=== PATIENT | female | born 1960 | race Caucasian/White ===

== ENCOUNTER 2016-09-06 14:50 | Inpatient (IN) | payer MEDICARE, OTHER ==
[~2016-09-06] VITALS: Ht 157.5 cm; Wt 45.0 kg
[2016-09-06] VITALS (25 sets, daily range): BP systolic 82–209; BP diastolic 40–113; PULSE 75–110; RESP 15–27; TEMP 98.2–100.4; O2SAT 90–100
[~2016-09-06 14:50] MED LIST: ASPI1TAB69 PO; BUSP15TA PO; DILA100C PO; DONE10TA7 PO; LACO50 PO; LORA-392 PO; PANT40TA3 PO; SIMV5TAB3 PO; ZYPR2.5T2 PO
[2016-09-06] MEDS ORDERED: LORazepam 2 MG/ML VIAL ONE (15:01)
[2016-09-06] MEDS ORDERED: LORazepam 2 MG/ML VIAL IVS ONE (15:15)
[2016-09-06] MEDS ORDERED: SODIUM CHLORIDE 0.9% FLUSH 5 ML FLUSH IVF PRN ×3 (15:15→19:00)
[2016-09-06] MEDS ORDERED: ETOMIDATE 20 MG/10 ML VIAL ONE (15:19)
[2016-09-06] MEDS ORDERED: ROCURONIUM INJ 50 MG/5 ML VIAL ONE (15:20)
[2016-09-06] MEDS ORDERED: PROPOFOL 1000 MG/100 ML INJ 100 ML ONE (15:22)
[2016-09-06] MEDS ORDERED: SODIUM CHLOR 0.9% 1000 ML INJ 1,000 ML IV ONE ×2 (15:27→23:15)
[2016-09-06] MEDS ORDERED: SUCCINYLCHOLINE CHLORIDE 200 MG/10 ML VIAL IV PUSH ONE (15:30)
[2016-09-06] MEDS ORDERED: LORazepam 2 MG/ML VIAL IV PUSH ONE ×4 (15:30)
[2016-09-06] MEDS ORDERED: FOSPHENYTOIN INJ 1,000 MGPE in SODIUM CHLORIDE 0.9% INJ 50 ML IV ONE ×4 (15:30)
[2016-09-06] MEDS ORDERED: ETOMIDATE 20 MG/10 ML VIAL IV PUSH ONE (15:30)
[2016-09-06 15:41] LABS: BASOPHIL % 0.3 % (0.0-2.0); EOSINOPHIL % 0.3 % (0.0-4.0); HEMATOCRIT 34.2 % (35.0-46.0); HEMO FLAGS DIFF FINAL; LYMPH % 10.4 % (9.0-44.0); MEAN CELL VOLUME 87.2 FL (80.0-100.0); MEAN CORPUSCULAR HEMOGLOBIN 28.5 PG (27.0-34.0); MEAN CORPUSCULAR HGB CONC 32.7 % (32.0-36.0); MONO % 8.1 % (0.0-8.0); NEUT % 80.9 % (16.0-70.0); PLATELET COUNT 470 TH/MM3 (150-450); RED BLOOD COUNT 3.92 MIL/MM3 (4.00-5.30); RED CELL DISTRIBUTION WIDTH 15.7 % (11.6-17.2); WHITE BLOOD COUNT 9.9 TH/MM3 (4.0-11.0)
[2016-09-06] MEDS ORDERED: HYDROmorphone HCL PF 1 MG/ML VIAL IV PUSH ONE (15:45)
--- NOTE | 2016-09-06 15:45 | PD ---
HPI Chief Complaint: Seizure Time Seen by Provider: 15:03 Travel History International Travel<30 days: No Contact w/Intl Traveler<30days: No Traveled to known affect area: No History of Present Illness HPI This is a 56-year-old female who has a history of dementia and reported prior stroke who presents to the emergency department with reported seizures witnessed by her longterm and by EMS. Patient reportedly had 4 episodes of repetitive movements that lasted for about a minute and then subsided. Patient has a history of dementia and is unable to provide any history. [facility] gave the patient 2 mg of IM Ativan but she continued to have some repetitive movements and gaze deviation to the left. PFSH Past Medical History Arthritis: No Asthma: No Autoimmune Disease: No Blood Disorders: No Anxiety: Yes Depression: Yes Heart Rhythm Problems: No Cancer: No Cardiovascular Problems: No High Cholesterol: No Chemotherapy: No Chest Pain: No Congestive Heart Failure: No COPD: No Cerebrovascular Accident: No Dementia: Yes (ALCOHOL INDUCED ) Diabetes: No Diminished Hearing: No Endocrine: No GERD: No Glaucoma: No Genitourinary: No Headaches: No Hepatitis: No Hiatal Hernia: No Hypertension: No Immune Disorder: No Implanted Vascular Access Dvce: Yes (PORT ) Kidney Stones: No Musculoskeletal: No Neurologic: Yes Psychiatric: Yes (PSYCHOSIS) Reproductive: No Respiratory: No Migraines: No Myocardial Infarction: No Radiation Therapy: No Renal Failure: No Schizophrenia: Yes Seizures: Yes Sickle Cell Disease: No Sleep Apnea: No Thyroid Disease: No Ulcer: No Menopausal: Yes Past Surgical History AICD: No Appendectomy: Yes Arteriovenous Shunt: No Cardiac Surgery: No Cholecystectomy: No Ear Surgery: No Endocrine Surgery: No Eye Surgery: No Genitourinary Surgery: No Gynecologic Surgery: No Insulin Pump: No Joint Replacement: No Pacemaker: No Thoracic Surgery: No Tonsillectomy: Yes Social History Alcohol Use: No (UNABLE TO ASSESS) Tobacco Use: Yes (PACK A DAY ) Substance Use: No Allergies-Medications (Allergen,Severity, Reaction): Coded Allergies: No Known Allergies (Verified , 09/06/16) Reported Meds & Prescriptions Reported Meds & Active Scripts Active Ativan (Lorazepam) 0.5 Mg Tab 0.5 Mg PO Q8H PRN Dilantin (Phenytoin Extended) 100 Mg Cap 100 Mg PO TID Reported Ducodyl DR (Bisacodyl) 5 Mg Tabdr 5 Mg PO DAILY PRN Olanzapine 5 Mg Tab 5 Mg PO BID Naproxen 500 Mg Tab 500 Mg PO BID Trazodone (Trazodone HCl) 50 Mg Tab 50 Mg PO HS Rocephin Inj (Ceftriaxone Sodium) 1 Gm Inj 1 Gm IM ONCE Nuedexta 20-10 mg (Dextromethorphan HBr-Quinidine) 1 Cap Cap 1 Cap PO BID Multiple Vitamin 1 Tab 1 Tab PO DAILY Buspirone (Buspirone HCl) 15 Mg Tab 15 Mg PO TID Pantoprazole (Pantoprazole Sodium) 40 Mg Tab 40 Mg PO BID Vimpat (Lacosamide) 50 Mg Tab 50 Mg PO BID Simvastatin 5 Mg Tab 5 Mg PO HS Donepezil 10 Mg Tab 10 Mg PO HS Aspirin 81 Mg Tabdr 81 Mg PO DAILY Review of Systems ROS Limitations: Intubated, Altered Mental Status, Poor Historian Physical Exam Narrative GENERAL: Frail elderly female in no acute distress SKIN: Warm and dry. HEAD: Atraumatic. Normocephalic. EYES: Pupils equal and round. No injection or drainage. ENT: Moist mucous membranes NECK: Trachea midline. CARDIOVASCULAR: Regular rate and rhythm. No murmur appreciated. RESPIRATORY: Clear to auscultation. Breath sounds equal bilaterally. 1+ bilateral lower extremity edema. GASTROINTESTINAL: Abdomen soft, non-tender, nondistended. MUSCULOSKELETAL: No obvious deformities. NEUROLOGICAL: Gaze deviation to the left, repetitive movements of the left upper extremity and left leg with repetitive blinking. Data Data Last Documented VS Vital Signs Date Time Temp Pulse Resp B/P Pulse Ox O2 Delivery O2 Flow Rate FiO2 09/06/16 17:00 107 18 127/82 100 Ventilator 100 09/06/16 15:15 2 09/06/16 14:50 98.2 Orders Lorazepam Inj (Ativan Inj) (09/06/16 15:01) Complete Blood Count With Diff (09/06/16 15:03) Electrocardiogram (09/06/16 ) Ct Brain W/O Iv Contrast(Rout) (09/06/16 ) Blood Glucose (09/06/16 15:03) Ecg Monitoring (09/06/16 15:03) Iv Access Insert/Monitor (09/06/16 15:03) Oximetry (09/06/16 15:03) Comprehensive Metabolic Panel (09/06/16 15:03) Sodium Chloride 0.9% Flush (Ns Flush) (09/06/16 15:15) Lorazepam Inj (Ativan Inj) (09/06/16 15:15) Ua Includes Microscopic (09/06/16 15:03) Fosphenytoin Inj (Cerebyx Inj) (09/06/16 15:30) Lactic Acid (09/06/16 15:04) Etomidate Inj (Amidate Inj) (09/06/16 15:19) Rocuronium Inj (Zemuron Inj) (09/06/16 15:20) Propofol 1000 Mg/100 Ml Inj (Diprivan 10 (09/06/16 15:22) Lorazepam Inj (Ativan Inj) (09/06/16 15:30) Lorazepam Inj (Ativan Inj) (09/06/16 15:30) Lorazepam Inj (Ativan Inj) (09/06/16 15:30) Lorazepam Inj (Ativan Inj) (09/06/16 15:30) Fosphenytoin Inj (Cerebyx Inj) (09/06/16 15:30) Etomidate Inj (Amidate Inj) (09/06/16 15:30) Succinylcholine Inj (Quelicin Inj) (09/06/16 15:30) Creatine Kinase (Cpk) (09/06/16 15:27) Ng Gastric Tube Insert/Monitor (09/06/16 15:27) Urinary Catheter Insert/Apply (09/06/16 15:27) Sodium Chloride 0.9% Flush (Ns Flush) (09/06/16 15:30) Sodium Chlor 0.9% 1000 Ml Inj (Ns 1000 M (09/06/16 15:27) Restraints Non-Violent ARIANNA.Q3H (09/06/16 15:27) Propofol 1000 Mg/100 Ml Inj (Diprivan 10 (09/06/16 15:30) ^ Infusion (09/06/16 15:29) RASS (09/06/16 15:29) Neurological Rass Scale ARIANNA.Q2H (09/06/16 15:29) Hydromorphone Pf Inj (Dilaudid Pf Inj) (09/06/16 15:45) Chest, Single Ap (09/06/16 ) Phenytoin (Dilantin) (09/06/16 16:06) Arterial Blood Gas (Abg) (09/06/16 16:47) Midazolam Inj (Versed Inj) (09/06/16 17:15) Phenobarbital Inj (Luminal Inj) (09/06/16 17:15) Admit Order (Ed Use Only) (09/06/16 17:06) Labs Laboratory Tests Test 09/06/16 09/06/16 09/06/16 15:25 15:42 16:47 White Blood Count 9.9 TH/MM3 Red Blood Count 3.92 MIL/MM3 Hemoglobin 11.2 GM/DL Hematocrit 34.2 % Mean Corpuscular Volume 87.2 FL Mean Corpuscular Hemoglobin 28.5 PG Mean Corpuscular Hemoglobin 32.7 % Concent Red Cell Distribution Width 15.7 % Platelet Count 470 TH/MM3 Mean Platelet Volume 7.2 FL Neutrophils (%) (Auto) 80.9 % Lymphocytes (%) (Auto) 10.4 % Monocytes (%) (Auto) 8.1 % Eosinophils (%) (Auto) 0.3 % Basophils (%) (Auto) 0.3 % Neutrophils # (Auto) 8.0 TH/MM3 Lymphocytes # (Auto) 1.0 TH/MM3 Monocytes # (Auto) 0.8 TH/MM3 Eosinophils # (Auto) 0.0 TH/MM3 Basophils # (Auto) 0.0 TH/MM3 CBC Comment DIFF FINAL Differential Comment Sodium Level 129 MEQ/L Potassium Level 3.9 MEQ/L Chloride Level 96 MEQ/L Carbon Dioxide Level 25.3 MEQ/L Anion Gap 8 MEQ/L Blood Urea Nitrogen 7 MG/DL Creatinine 0.48 MG/DL Estimat Glomerular Filtration 133 ML/MIN Rate Random Glucose 92 MG/DL Lactic Acid Level 1.1 mmol/L Calcium Level 8.8 MG/DL Total Bilirubin 0.2 MG/DL Aspartate Amino Transf 19 U/L (AST/SGOT) Alanine Aminotransferase 21 U/L (ALT/SGPT) Alkaline Phosphatase 143 U/L Total Creatine Kinase 116 U/L Total Protein 8.1 GM/DL Albumin 3.9 GM/DL Phenytoin (Dilantin) Level 10.2 MCG/ML Phenobarbital Level LESS THAN 2.1 MCG/ML Urine Color COLORLESS Urine Turbidity CLEAR Urine pH 7.0 Urine Specific [place] 1.006 Urine Protein TRACE mg/dL Urine Glucose (UA) NEG mg/dL Urine Ketones NEG mg/dL Urine Occult Blood NEG Urine Nitrite NEG Urine Bilirubin NEG Urine Urobilinogen LESS THAN 2.0 MG/DL Urine Leukocyte Esterase NEG Urine RBC 4 /hpf Urine WBC 1 /hpf Urine Amorphous Sediment RARE Urine Bacteria RARE /hpf Urine Mucus FEW /lpf Blood Gas Puncture Site RT BRACHIAL Blood Gas Patient Temperature 98.6 Blood Gas HCO3 20 mmol/L Blood Gas Base Excess -4.4 mmol/L Blood Gas Oxygen Saturation 97 % Arterial Blood pH 7.40 Arterial Blood Partial 33 mmHg Pressure CO2 Arterial Blood Partial 512 mmHG Pressure O2 Arterial Blood Oxygen Content 14.3 Vol % Arterial Blood 2.0 % Carboxyhemoglobin Arterial Blood Methemoglobin 1.5 % Blood Gas Hemoglobin 9.5 G/DL Oxygen Delivery Device VENTILATOR Blood Gas Ventilator Setting VAC/18/500/PEEP+5 Blood Gas Inspired Oxygen 100 % MDM Medical Decision Making Medical Screen Exam Complete: Yes Emergency Medical Condition: Yes Medical Record Reviewed: Yes (patient was admitted to the beginning of July for status epilepticus and was intubated that time in the intensive care unit.) Interpretation(s) Afebrile, mild tachycardia, hypertensive Mild anemia Thrombocytosis Mild hyponatremia Lactic acid 1.1 Phenytoin level normal Phenobarbital level is less than 2.1 Last [address] 09/06/16 0000 Signed Impressions: Service Date/Time: Tuesday, September 06, 2016 16:11 - CONCLUSION: Unremarkable study. Mihaela Iraheta MD Chest X-Ray 09/06/16 0000 Signed Impressions: Service Date/Time: Tuesday, September 06, 2016 15:49 - CONCLUSION: No acute cardiopulmonary disease and the tip of the NG tube needs to be advanced. Mihaela Iraheta MD Differential Diagnosis Status epilepticus, urinary tract infection, intracranial hemorrhage, electrolyte abnormality Narrative Course This is a 56-year-old female who presents to the emergency department in status epilepticus. On arrival she had seizure activity with repetitive gaze to the left associated with convulsions of the left upper extremity and left lower extremity. She was given 8 mg of IV Ativan with no cessation of seizure activity. She was given a gram of fosphenytoin and ultimately was intubated and started on propofol. I spoke to Dr. Lee who was on-call for neurology and he recommended initiating phenobarbital and versed, and continuing phenytoin and Vimpat. Patient will be admitted to the intensive care unit for further management. Critical Care Narrative Aggregate critical care time was 60 minutes. Time to perform other separately billable procedures was not included in the critical care time. My time did not include minutes spent treating any other patients simultaneously or on activities that did not directly contribute to the patient's treatment. The services I provided to this patient were to treat and/or prevent clinically significant deterioration that could result in: Disability, I provided critical care services requiring my management, as noted below: Chart data review, documentation time, medication orders and management, vital sign assessments/reviewing monitor data, ordering and reviewing lab tests, ordering and interpreting/reviewing x-rays and diagnostic studies, care of the patient and discussion of the patient with the admitting physicians. Procedures Procedure Narrative After the risks and benefits were discussed the following procedure was performed: INTUBATION: The patient was put in optimal position for the procedure. Rapid sequence intubation was initiated by me using 20 milligrams of etomidate IV and 100 milligrams of succinylcholine IV. The patient was intubated with a 7.5 cuffed endotracheal tube. Tube placement was confirmed by visualization of the tube and balloon passing through the cords, capnometry and subsequent chest x- ray. Breath sounds were equal and well aerated bilaterally postintubation. No breath sounds over stomach. Patient tolerated procedure well. Physician Communication Physician Communication Discussed with Dr. Harvey Diagnosis Primary Impression: Status epilepticus Admitting Information Admitting Physician Requests: Dahiana Husain MD Sep 06, 2016 15:45
[2016-09-06 15:56] LABS: BACTERIA, URINE RARE /hpf; BLOOD, URINE NEG (NEG); GLUCOSE,URINE NEG (NEG); KETONE, URINE NEG (NEG); MUCUS URINE FEW /lpf (OCC); NITRITE,URINE NEG (NEG); URINE COLOR COLORLESS (YELLW/STRAW)
--- NOTE | 2016-09-06 15:59 | RADRPT ---
EXAM DATE/TIME: 09/06/2016 15:49 [facility] COMPARISON: CHEST SINGLE AP, July 26, 2016, 19:05. INDICATIONS : Post intubation. MEDICAL HISTORY : Cardiovascular disease. Dementia SURGICAL HISTORY : Tonsillectomy. Infusaport. ENCOUNTER: Initial ACUITY: 1 day PAIN SCORE: Non-responsive. LOCATION: Bilateral chest FINDINGS: The lungs are clear without infiltrate, nodule, or mass. There is no appreciable pleural effusion fo r technique. Heart and mediastinum are unremarkable. Right IJ [id number] is present with tip over lapping the expected region of the SVC. NG tube is present with tip barely inside the stomach and nee ds to be advanced. ET tube is present with tip overlapping approximately 2 cm above the emma. CONCLUSION: No acute cardiopulmonary disease and the tip of the NG tube needs to be advanced. Mihaela Iraheta MD on September 06, 2016 at 15:56 Board Certified Radiologist. This report was verified electronically.
[2016-09-06 16:00] LABS: ALT (GPT) 21 U/L (10-53); ANION GAP 8 MEQ/L (5-15); AST (GOT) 19 U/L (15-37); BICARBONATE 25.3 MEQ/L (21.0-32.0); BLOOD UREA NITROGEN 7 MG/DL (7-18); CHLORIDE 96 MEQ/L (98-107); GLOMERULAR FILTRATION RATE 133 ML/MIN (>89); POTASSIUM 3.9 MEQ/L (3.5-5.1); SODIUM (NA) 129 MEQ/L (136-145)
[2016-09-06] MEDS: PROPOFOL 1000 MG/100 ML INJ 100 ML IV SCH (16:00)
[2016-09-06 16:03] LABS: ALKALINE PHOSPHATASE 143 U/L (45-117); TOTAL BILIRUBIN ADULT 0.2 MG/DL (0.2-1.0)
--- NOTE | 2016-09-06 16:31 | RADRPT ---
EXAM DATE/TIME: 09/06/2016 16:11 [facility] COMPARISON: CT BRAIN W/O CONTRAST, July 19, 2016, 14:05. INDICATIONS : Seizures and altered mental status. RADIATION DOSE: 41.36 CTDIvol (mGy) MEDICAL HISTORY : Seizures. SURGICAL HISTORY : Non-responsive. ENCOUNTER: Initial ACUITY: 1 day PAIN SCALE: Non-responsive LOCATION: cranial TECHNIQUE: Multiple contiguous axial images were obtained of the head. Using automated exposure control and adj ustment of the mA and/or kV according to patient size, radiation dose was kept as low as reasonably a chievable to obtain optimal diagnostic quality images. FINDINGS: There is no evidence for intracranial hemorrhage, mass effect, mass lesions, edema, or extra-axial fl uid collections. The visualized bony structures appear intact. The ventricles are normal size for t he patient's age. There are no signs of acute infarction for technique. CONCLUSION: Unremarkable study. Mihaela Iraheta MD on September 06, 2016 at 16:28 Board Certified Radiologist. This report was verified electronically.
[2016-09-06] MEDS ORDERED: NAPR500T PO (16:49)
[2016-09-06] MEDS ORDERED: OLAN5TAB PO (16:49)
[2016-09-06] MEDS ORDERED: NUED20CA PO (16:49)
[2016-09-06] MEDS ORDERED: ROCE1INJ3 IM (16:49)
[2016-09-06] MEDS ORDERED: MULTTAB67 PO (16:49)
[2016-09-06] MEDS ORDERED: TRAZ50TA12 PO (16:49)
[2016-09-06] MEDS ORDERED: DUCO5TAB PO (16:49)
[2016-09-06 17:03] LABS: BLOOD GAS BASE EXCESS -4.4 mmol/L (-2-2); BLOOD GAS HCO3 20 mmol/L (22-26); BLOOD GAS METHEMOGLOBIN 1.5 % (0-2); BLOOD GAS O2 HGB SATURATION 97 % (90-100); BLOOD GAS OXYGEN CONTENT 14.3 Vol % (12.0-20.0); BLOOD GAS PCO2 33 mmHg (38-42); BLOOD GAS PO2 512 mmHG (61-120); BLOOD GAS TOTAL HGB 9.5 G/DL (12.0-16.0); CRITICAL VALUE NO; DRAW SITE RT BRACHIAL; FIO2 100 %; NUMBER OF ARTERIAL PUNCTURES 1; OXYGEN DEVICE VENTILATOR; STAT NO; TEMP CORR TO 98.6; ULNAR PULSE PRESENT; VENT SETTINGS VAC/18/500/PEEP+5
[2016-09-06] MEDS: MIDAZOLAM 100 MG/ML INJ 100 ML IV SCH (17:36)
[2016-09-06] MEDS ORDERED: MISCELLANEOUS NURSING INFORMATION XX SCH (19:00)
[2016-09-06] MEDS ORDERED: CHLORHEXIDINE GLUCONATE 2 % 1 PACK (2 CLOTHS) TOP PRN (19:00)
[2016-09-06] MEDS ORDERED: RESP: ALBUTEROL 2.5 MG/IPRATROPIUM 0.5 MG NEB (PRN) INH (19:00)
--- NOTE | 2016-09-06 19:10 | HHI.HP ---
HPI Service Critical Care Medicine Primary Care Physician Dominick Ledezma MD Admission Diagnosis status epilepticus Diagnosis: Chief Complaint: Seizures Travel History International Travel<30 Days: No Contact w/Intl Traveler <30 Da: No Traveled to Known Affected Are: No History of Present Illness HPI This is a 56-year-old female who has a history of dementia and reported prior stroke who presents to the emergency department with reported seizures witnessed by her intermediate and by EMS. Patient reportedly had 4 episodes of repetitive movements that lasted for about a minute and then subsided. Patient has a history of dementia and is unable to provide any history. [facility] gave the patient 2 mg of IM Ativan but she continued to have some repetitive movements and gaze deviation to the left. Patient received 8 mg of Ativan total in the ER however continued to have seizures. She was thought to be in status epilepticus and she was intubated by ER physician and placed on propofol as well as given 1 g of fosphenytoin IV. Dr. Lee from neurology was contacted and ordered phenobarbital and recommended versed gtt for sedation. When I evaluated the patient she was sedated, orally intubated on mechanical ventilation on a Versed drip. History was obtained by reviewing records and discussion with ER physician. History PFSH Past Medical History Arthritis: No Asthma: No Autoimmune Disease: No Blood Disorders: No Anxiety: Yes Depression: Yes Heart Rhythm Problems: No Cancer: No Cardiovascular Problems: No High Cholesterol: No Chemotherapy: No Chest Pain: No Congestive Heart Failure: No COPD: No Cerebrovascular Accident: No Dementia: Yes (ALCOHOL INDUCED ) Diabetes: No Diminished Hearing: No Endocrine: No GERD: No Glaucoma: No Genitourinary: No Headaches: No Hepatitis: No Hiatal Hernia: No Hypertension: No Immune Disorder: No Implanted Vascular Access Dvce: Yes (PORT ) Kidney Stones: No Musculoskeletal: No Neurologic: Yes Psychiatric: Yes (PSYCHOSIS) Reproductive: No Respiratory: No Migraines: No Myocardial Infarction: No Radiation Therapy: No Renal Failure: No Schizophrenia: Yes Seizures: Yes Sickle Cell Disease: No Sleep Apnea: No Thyroid Disease: No Ulcer: No Menopausal: Yes Past Surgical History AICD: No Appendectomy: Yes Arteriovenous Shunt: No Cardiac Surgery: No Cholecystectomy: No Ear Surgery: No Endocrine Surgery: No Eye Surgery: No Genitourinary Surgery: No Gynecologic Surgery: No Insulin Pump: No Joint Replacement: No Pacemaker: No Thoracic Surgery: No Tonsillectomy: Yes Social History Alcohol Use: No (UNABLE TO ASSESS) Tobacco Use: Yes (PACK A DAY ) Substance Use: No Allergies-Medications Allergies-Medications (Allergen,Severity, Reaction): Coded Allergies: No Known Allergies (Verified , 09/06/16) Reported Meds & Prescriptions Reported Meds & Active Scripts Active Ativan (Lorazepam) 0.5 Mg Tab 0.5 Mg PO Q8H PRN Zyprexa (Olanzapine) 2.5 Mg Tab 2.5 Mg PO BID Dilantin (Phenytoin Extended) 100 Mg Cap 100 Mg PO TID Reported Buspirone (Buspirone HCl) 15 Mg Tab 15 Mg PO TID Pantoprazole (Pantoprazole Sodium) 40 Mg Tab 40 Mg PO BID Vimpat (Lacosamide) 50 Mg Tab 50 Mg PO BID Simvastatin 5 Mg Tab 5 Mg PO HS Donepezil 10 Mg Tab 10 Mg PO HS Aspirin 81 Mg Tabdr 81 Mg PO DAILY ROS Review of Systems ROS Limitations: Intubated, Altered Mental Status Physical Exam Vital Signs Vital Signs Date Time Temp Pulse Resp B/P Pulse Ox O2 Delivery O2 Flow Rate FiO2 09/06/16 18:48 97 18 124/97 100 Ventilator 40 09/06/16 18:26 94 18 130/78 100 Ventilator 40 09/06/16 18:15 86 15 88/68 100 Ventilator 40 09/06/16 17:53 100 40 09/06/16 17:45 79 18 82/50 100 Ventilator 40 09/06/16 17:15 79 18 107/63 100 Ventilator 40 09/06/16 17:00 107 18 127/82 100 Ventilator 100 09/06/16 16:45 88 18 115/65 100 Ventilator 100 09/06/16 16:28 18 09/06/16 16:25 97 18 126/70 100 Ventilator 100 09/06/16 16:15 97 18 123/77 100 Ventilator 100 09/06/16 16:05 75 18 96/66 100 Ventilator 100 09/06/16 16:00 92 18 97/55 100 Ventilator 100 09/06/16 15:45 100 18 146/81 100 Ventilator 100 09/06/16 15:31 104 20 188/99 100 Ventilator 100 09/06/16 15:25 107 20 209/109 100 Auto-Vent 09/06/16 15:25 100 100 09/06/16 15:15 97 22 178/96 100 Nasal Cannula 2 09/06/16 15:11 101 18 182/99 100 Nasal Cannula 2 09/06/16 14:50 109 16 100 Nasal Cannula 2 09/06/16 14:50 98.2 102 16 200/113 95 Physical Exam HEENT/ Neuro: Sedated, orally intubated, Pallor present, no icterus, tongue/ mucosa moist Neck: No JVD Chest/Pulm: on mech vent, good air entry bilaterally, no wheezing or crackles CVS: S1-S2 regular, no murmur GI/abdomen: soft, nontender, bowel sounds sluggish Extremities: warm bilaterally, no edema Laboratory Laboratory Tests Test 09/06/16 09/06/16 09/06/16 15:25 15:42 16:47 White Blood Count 9.9 Red Blood Count 3.92 Hemoglobin 11.2 Hematocrit 34.2 Mean Corpuscular Volume 87.2 Mean Corpuscular Hemoglobin 28.5 Mean Corpuscular Hemoglobin 32.7 Concent Red Cell Distribution Width 15.7 Platelet Count 470 Mean Platelet Volume 7.2 Neutrophils (%) (Auto) 80.9 Lymphocytes (%) (Auto) 10.4 Monocytes (%) (Auto) 8.1 Eosinophils (%) (Auto) 0.3 Basophils (%) (Auto) 0.3 Neutrophils # (Auto) 8.0 Lymphocytes # (Auto) 1.0 Monocytes # (Auto) 0.8 Eosinophils # (Auto) 0.0 Basophils # (Auto) 0.0 CBC Comment DIFF FINAL Differential Comment Sodium Level 129 Potassium Level 3.9 Chloride Level 96 Carbon Dioxide Level 25.3 Anion Gap 8 Blood Urea Nitrogen 7 Creatinine 0.48 Estimat Glomerular Filtration 133 Rate Random Glucose 92 Lactic Acid Level 1.1 Calcium Level 8.8 Total Bilirubin 0.2 Aspartate Amino Transf 19 (AST/SGOT) Alanine Aminotransferase 21 (ALT/SGPT) Alkaline Phosphatase 143 Total Creatine Kinase 116 Total Protein 8.1 Albumin 3.9 Phenytoin (Dilantin) Level 10.2 Phenobarbital Level LESS THAN 2.1 Urine Color COLORLESS Urine Turbidity CLEAR Urine pH 7.0 Urine Specific [place] 1.006 Urine Protein TRACE Urine Glucose (UA) NEG Urine Ketones NEG Urine Occult Blood NEG Urine Nitrite NEG Urine Bilirubin NEG Urine Urobilinogen LESS THAN 2.0 Urine Leukocyte Esterase NEG Urine RBC 4 Urine WBC 1 Urine Amorphous Sediment RARE Urine Bacteria RARE Urine Mucus FEW Blood Gas Puncture Site RT BRACHIAL Blood Gas Patient Temperature 98.6 Blood Gas HCO3 20 Blood Gas Base Excess -4.4 Blood Gas Oxygen Saturation 97 Arterial Blood pH 7.40 Arterial Blood Partial 33 Pressure CO2 Arterial Blood Partial 512 Pressure O2 Arterial Blood Oxygen Content 14.3 Arterial Blood 2.0 Carboxyhemoglobin Arterial Blood Methemoglobin 1.5 Blood Gas Hemoglobin 9.5 Oxygen Delivery Device VENTILATOR Blood Gas Ventilator Setting VAC/18/500/PEEP+5 Blood Gas Inspired Oxygen 100 Result Diagram: 09/06/16 1525 09/06/16 1525 Imaging Last Impressions Head CT 09/06/16 0000 Signed Impressions: Service Date/Time: Tuesday, September 06, 2016 16:11 - CONCLUSION: Unremarkable study. Mihaela Iraheta MD Chest X-Ray 09/06/16 0000 Signed Impressions: Service Date/Time: Tuesday, September 06, 2016 15:49 - CONCLUSION: No acute cardiopulmonary disease and the tip of the NG tube needs to be advanced. Mihaela Iraheta MD Assessment and Plan Assessment and Plan 56-year-old female with: Status epilepticus Acute respiratory failure on mechanical ventilation History of seizures Dementia Prior stroke Plan: Neuro: Sedation with Versed. Loaded with fosphenytoin, continue fosphenytoin 200 mg IV every 12 hourly. Started on phenobarbital for neurology Dr. Lee who was consulted. Head CT negative for bleed. EEG per neurology. Cardiovascular: IV hydration, watch for hypotension. Pulmonary: Patient will be kept intubated for airway protection, continue mechanical ventilation, vent bundle, bronchodilators as needed. GI/liver: Start tube feeds and advanced to goal as tolerated Renal/: IV hydration, strict intake output, monitor and replete elect lites, follow BUN/creatinine. ID: No antibiotics at this time. Endocrine: Watch for hyperglycemia, SSI for glycemic control if needed Heme: Follow CBC Prophylaxis: Ranitidine/Lovenox/SCDs. Condition critical Further recommendations per neurology Time spent on critical care excluding procedures 60 minutes Reese Harvey MD Sep 06, 2016 19:10
[2016-09-06] MEDS: SODIUM CHLOR 0.9% 1000 ML INJ 1,000 ML IV SCH (19:23)
[2016-09-06] MEDS: ENOXAPARIN SODIUM 40 MG/0.4 ML SYRINGE SQ SCH (20:13)
[2016-09-06] MEDS: FOSPHENYTOIN SODIUM 100 MG PE/2 ML VIAL IV SCH (21:00)
[2016-09-06] MEDS: RESP: ALBUTEROL 2.5 MG/IPRATROPIUM 0.5 MG NEB (SCH) NEB (22:25)
[2016-09-06] MEDS ORDERED: TERBUTALINE INJ 1 MG/ML AMP SQ PRN (23:15)
[2016-09-07] VITALS (21 sets, daily range): BP systolic 97–120; BP diastolic 46–67; PULSE 65–90; RESP 18–20; TEMP 98.5–99.8; O2SAT 98–100
[2016-09-07] MEDS: PHENobarbital INJ 90 MG in SODIUM CHLORIDE 0.9% INJ 50 ML IV SCH ×3 (00:01→21:21)
[2016-09-07] MEDS: CHLORHEXIDINE 0.12% (ORAL KIT) 15 ML CUP MT SCH ×3 (00:01→21:08)
[2016-09-07] MEDS: SODIUM CHLORIDE 0.9% FLUSH 5 ML FLUSH IVF SCH ×3 (00:02→21:09)
[2016-09-07] MEDS: CHLORHEXIDINE GLUCONATE 2 % 1 PACK (2 CLOTHS) TOP SCH (00:03)
[2016-09-07] MEDS: NOREPINEPHRINE-DEXTROSE DRIP 250 ML IV SCH ×3 (00:03→21:21)
[2016-09-07] MEDS: RESP: ALBUTEROL 2.5 MG/IPRATROPIUM 0.5 MG NEB (SCH) NEB ×4 (03:39→19:45)
[2016-09-07] MEDS: SODIUM CHLOR 0.9% 1000 ML INJ 1,000 ML IV SCH ×3 (06:48→23:59)
[2016-09-07 07:29] LABS: AUTOMATED NEUTROPHIL # 11.2 TH/MM3 (1.8-7.7); BASOPHIL % 0.4 % (0.0-2.0); HEMATOCRIT 27.7 % (35.0-46.0); HEMO FLAGS DIFF FINAL; LYMPH % 2.6 % (9.0-44.0); LYMPHOCYTE # 0.3 TH/MM3 (1.0-4.8); MEAN CELL VOLUME 85.1 FL (80.0-100.0); MEAN CORPUSCULAR HEMOGLOBIN 29.5 PG (27.0-34.0); MEAN CORPUSCULAR HGB CONC 34.6 % (32.0-36.0); MONO % 7.9 % (0.0-8.0); NEUT % 89.1 % (16.0-70.0); PLATELET COUNT 733 TH/MM3 (150-450); RED BLOOD COUNT 3.25 MIL/MM3 (4.00-5.30); RED CELL DISTRIBUTION WIDTH 16.1 % (11.6-17.2); WHITE BLOOD COUNT 12.5 TH/MM3 (4.0-11.0)
[2016-09-07 07:57] LABS: BICARBONATE 18.7 MEQ/L (21.0-32.0); CALCIUM-PROTEIN CORRECTED 8.1 MG/DL (8.5-10.1); TOTAL BILIRUBIN ADULT 0.3 MG/DL (0.2-1.0)
[2016-09-07 07:58] LABS: PHENOBARBITAL 6.3 MCG/ML (15.0-40.0)
--- NOTE | 2016-09-07 07:59 | EKG ---
Date Performed: 09/06/2016 Time Performed: 16:40:11 PTAGE: 56 years EKG: Sinus rhythm LEFT AXIS DEVIATION LOW QRS VOLTAGE IN EXTREMITY LEADS ABNORMAL ECG PREVIOUS TRACING : 07/19/2016 12.18 Compared to previous tracing, heart rate has slowed. DOCTOR: Duran Kaiser Interpretating Date/Time 09/07/2016 07:59:11
[2016-09-07] MEDS: FAMOTIDINE 20 MG TAB PO SCH (08:33)
[2016-09-07] MEDS: FOSPHENYTOIN SODIUM 100 MG PE/2 ML VIAL IV SCH (08:34)
--- NOTE | 2016-09-07 10:35 | PD.CONS ---
History of Present Illness Service Neurology Consult Requested By medical Reason for Consult sz Primary Care Physician Dominick Ledezma MD History of Present Illness 56-year-old female who has a history of dementia and reported prior stroke who presents to the emergency department with reported seizures witnessed by her senior care and by EMS. Patient reportedly had 4 episodes of repetitive movements that lasted for about a minute and then subsided,given ativan. intubated and sent to icu. was placed on versed gtt, phb, dilantin. on vimpat at [place]. hx of dementia believed to be 2/2 etoh abuse. pt unable to give any hx. obtained from medical chart. History PFSH Past Medical History Arthritis: No Asthma: No Autoimmune Disease: No Blood Disorders: No Anxiety: Yes Depression: Yes Heart Rhythm Problems: No Cancer: No Cardiovascular Problems: No High Cholesterol: No Chemotherapy: No Chest Pain: No Congestive Heart Failure: No COPD: No Cerebrovascular Accident: No Dementia: Yes (ALCOHOL INDUCED ) Diabetes: No Diminished Hearing: No Endocrine: No GERD: No Glaucoma: No Genitourinary: No Headaches: No Hepatitis: No Hiatal Hernia: No Hypertension: No Immune Disorder: No Implanted Vascular Access Dvce: Yes (PORT ) Kidney Stones: No Musculoskeletal: No Neurologic: Yes Psychiatric: Yes (PSYCHOSIS) Reproductive: No Respiratory: No Migraines: No Myocardial Infarction: No Radiation Therapy: No Renal Failure: No Schizophrenia: Yes Seizures: Yes Sickle Cell Disease: No Sleep Apnea: No Thyroid Disease: No Ulcer: No Menopausal: Yes Past Surgical History AICD: No Appendectomy: Yes Arteriovenous Shunt: No Cardiac Surgery: No Cholecystectomy: No Ear Surgery: No Endocrine Surgery: No Eye Surgery: No Genitourinary Surgery: No Gynecologic Surgery: No Insulin Pump: No Joint Replacement: No Pacemaker: No Thoracic Surgery: No Tonsillectomy: Yes Social History Alcohol Use: No (UNABLE TO ASSESS) Tobacco Use: Yes (PACK A DAY ) Substance Use: No Allergies-Medications Allergies-Medications (Allergen,Severity, Reaction): Coded Allergies: No Known Allergies (Verified , 09/06/16) ROS Review of Systems ROS Limitations: Intubated, Altered Mental Status Review of Systems All other ROS: Unable to obtain Past Family Social History Allergies: Coded Allergies: No Known Allergies (Verified , 09/06/16) Active Ordered Medications Current Medications Medications (Trade) Dose Ordered Sig/Cristofer Route Start Time Stop Time Status Last Admin (NS Flush) 2 ml UNSCH PRN IVF 09/06/16 15:15 IV Flush 2 ml 2 ml UNSCH PRN IVF 09/06/16 15:30 Propofol 100 ml @ 0 mls/hr TITRATE IV 09/06/16 15:30 09/06/16 16:00 (Versed Inj) 100 ml @ 0 mls/hr CONTINUOUS IV 09/06/16 17:15 09/06/16 17:36 Fosphenytoin Sodium 200 mgpe 200 mgpe Q12HR IV 09/06/16 21:00 09/07/16 08:34 Phenobarbital Sodium 90 mg/ Sodium Chloride 50.6923 ml @ 100 mls/ hr Q12HR IV 09/06/16 21:00 09/07/16 09:14 (NS 1000 ml Inj) 1,000 ml @ 75 mls/hr [id number] IV 09/06/16 18:55 09/07/16 06:48 (NS Flush) 2 ml UNSCH PRN IVF 09/06/16 19:00 (NS Flush) 2 ml BID IVF 09/06/16 21:00 09/07/16 08:34 (Tylenol) 650 mg Q6H PRN PO 09/06/16 19:00 (Peridex 0.12% Liq) 15 ml BID@08,20 MT 09/06/16 20:00 09/07/16 08:33 (Pepcid) 20 mg DAILY PO 09/07/16 09:00 09/07/16 08:33 (Lovenox Inj) 40 mg Q24H SQ 09/06/16 20:00 09/06/16 20:13 Miscellaneous Information 1 Q361D XX 09/06/16 19:00 (Chlorhexidine 2% Cloth) 3 pack Taper DAILY@04 TOP 09/07/16 04:00 09/03/17 03:59 09/07/16 00:03 Chlorhexidine Gluconate 3 pack 3 pack UNSCH PRN TOP 09/06/16 19:00 (Levophed-Dextrose Drip) 250 ml @ 0 mls/hr TITRATE IV 09/06/16 23:15 09/07/16 06:48 (Brethine Inj) 1 mg UNSCH PRN SQ 09/06/16 23:15 Exam I&O / VS 09/06/16 09/06/16 09/07/16 15:00 23:00 07:00 Intake Total 299 ml 1374 ml Output Total 602 ml 976 ml Balance -303 ml 398 ml Intake IV Total 149 ml 1124 ml Other 150 ml 250 ml Output Urine Total 600 ml 975 ml Stool Total 2 ml 1 ml Vital Signs Date Time Temp Pulse Resp B/P Pulse Ox O2 Delivery O2 Flow Rate FiO2 09/07/16 08:16 100 40 09/07/16 06:00 78 09/07/16 06:00 99.8 78 18 120/62 100 09/07/16 04:00 86 09/07/16 03:40 100 40 09/07/16 03:00 99.8 83 18 97/46 100 09/07/16 02:00 87 09/07/16 01:25 100 40 09/07/16 00:00 90 09/06/16 23:00 99.9 108 27 86/40 90 09/06/16 22:11 100 40 09/06/16 22:00 110 09/06/16 21:07 100.4 103 22 100/55 92 09/06/16 21:05 98 40 09/06/16 20:50 100 100 09/06/16 19:00 95 18 109/75 100 Ventilator 40 09/06/16 18:48 97 18 124/97 100 Ventilator 40 09/06/16 18:26 94 18 130/78 100 Ventilator 40 09/06/16 18:15 86 15 88/68 100 Ventilator 40 09/06/16 17:53 100 40 09/06/16 17:45 79 18 82/50 100 Ventilator 40 09/06/16 17:15 79 18 107/63 100 Ventilator 40 09/06/16 17:00 107 18 127/82 100 Ventilator 100 09/06/16 16:45 88 18 115/65 100 Ventilator 100 09/06/16 16:28 18 09/06/16 16:25 97 18 126/70 100 Ventilator 100 09/06/16 16:15 97 18 123/77 100 Ventilator 100 09/06/16 16:05 75 18 96/66 100 Ventilator 100 09/06/16 16:00 92 18 97/55 100 Ventilator 100 09/06/16 15:45 100 18 146/81 100 Ventilator 100 09/06/16 15:31 104 20 188/99 100 Ventilator 100 09/06/16 15:25 107 20 209/109 100 Auto-Vent 09/06/16 15:25 100 100 09/06/16 15:15 97 22 178/96 100 Nasal Cannula 2 09/06/16 15:11 101 18 182/99 100 Nasal Cannula 2 09/06/16 14:50 109 16 100 Nasal Cannula 2 09/06/16 14:50 98.2 102 16 200/113 95 Exam Comments intubated but awake and alert, inconsistently follows 1 step motor request, eomi , face sym, ou 3-2mm, grossly storey, flexion with ue and withdrawal with le, msr depressed, no clonus, planter flexor response Review/Management Diagnosis/Plan: (1) Status epilepticus Plan: appears resolved recs f/u eeg/mri brain ok to d/c versed and cpap trial/extubate continue phb/dil. will hold dilantin dose today and restart in am plan for floor in am if she remains sz free and stable (2) Acute respiratory failure requiring reintubation (3) Dementia Problem Qualifiers (1) Dementia: Jignesh Lee MD Sep 07, 2016 10:34
[2016-09-07] MEDS ORDERED: MAGNESIUM SULFATE INJ 4 GM in SODIUM CHLORIDE 0.9% INJ 92 ML IV PRN (10:45)
[2016-09-07] MEDS ORDERED: POTASSIUM CL 40 MEQ/30 ML LIQ UDC PO/TUBE PRN (10:45)
[2016-09-07] MEDS ORDERED: POTASSIUM PHOSPHATE INJ 30 MMOL in SODIUM CHLOR 0.9% 250 ML INJ 250 ML IV PRN (10:45)
[2016-09-07] MEDS ORDERED: MAGNESIUM OXIDE 400 MG TAB PO PRN (10:45)
[2016-09-07] MEDS ORDERED: POTASSIUM CHLOR 20 MEQ PREMIX 100 ML IV PRN ×2 (10:45)
[2016-09-07] MEDS ORDERED: POTASSIUM CHLOR 40 MEQ PREMIX 100 ML IV PRN (10:45)
[2016-09-07] MEDS ORDERED: MAGNESIUM SULFATE INJ 2 GM in SODIUM CHLORIDE 0.9% INJ 96 ML IV PRN (10:45)
[2016-09-07] MEDS ORDERED: POTASSIUM PHOSPHATE MONOBASIC 500 MG TAB PO/TUBE PRN (10:45)
[2016-09-07] MEDS ORDERED: SODIUM PHOSPHATE INJ 30 MMOL in SODIUM CHLOR 0.9% 250 ML INJ 240 ML IV PRN (10:45)
--- NOTE | 2016-09-07 11:00 | HHI.CCPN ---
Subjective Remarks/Hospital Course This is a 56-year-old female who has a history of dementia and reported prior stroke who presents to the emergency department with reported seizures witnessed by her fdc and by EMS. Patient reportedly had 4 episodes of repetitive movements that lasted for about a minute and then subsided. Patient has a history of dementia and is unable to provide any history. [facility] gave the patient 2 mg of IM Ativan but she continued to have some repetitive movements and gaze deviation to the left. Patient received 8 mg of Ativan total in the ER however continued to have seizures. She was thought to be in status epilepticus and she was intubated by ER physician and placed on propofol as well as given 1 g of fosphenytoin IV. Dr. Lee from neurology was contacted and ordered phenobarbital and recommended versed gtt for sedation. When I evaluated the patient she was sedated, orally intubated on mechanical ventilation on a Versed drip. History was obtained by reviewing records and discussion with ER physician. Subjective: 09/07 Seen by neurology this morning and ok for versed wean and CPAP/ extubation. Right now, about to go down for MRI. Objective Vital Signs Date Time Temp Pulse Resp B/P Pulse Ox O2 Delivery O2 Flow Rate FiO2 09/07/16 08:16 100 40 09/07/16 06:00 78 09/07/16 06:00 99.8 18 120/62 09/06/16 19:00 Ventilator 09/06/16 15:15 2 Intake and Output 09/06/16 09/06/16 09/07/16 08:00 16:00 00:00 Intake Total 299 ml Output Total 602 ml Balance -303 ml Result Diagram: 09/07/16 0609/07/16 0600 Other Results Laboratory Tests Test 09/06/16 16:47 Blood Gas Puncture Site RT BRACHIAL Blood Gas Patient Temperature 98.6 Blood Gas HCO3 20 mmol/L (22-26) Blood Gas Base Excess -4.4 mmol/L (-2-2) Blood Gas Oxygen Saturation 97 % (90-100) Arterial Blood pH 7.40 (7.380-7.420) Arterial Blood Partial 33 mmHg (38-42) Pressure CO2 Arterial Blood Partial 512 mmHG Pressure O2 (61-120) Arterial Blood Oxygen Content 14.3 Vol % (12.0-20.0) Arterial Blood 2.0 % (0-4) Carboxyhemoglobin Arterial Blood Methemoglobin 1.5 % (0-2) Blood Gas Hemoglobin 9.5 G/DL (12.0-16.0) Oxygen Delivery Device VENTILATOR Blood Gas Ventilator Setting VAC/18/500/PEEP+5 Blood Gas Inspired Oxygen 100 % Imaging Last Impressions Head CT 09/06/16 0000 Signed Impressions: Service Date/Time: Tuesday, September 06, 2016 16:11 - CONCLUSION: Unremarkable study. Mihaela Iraheta MD Chest X-Ray 09/06/16 0000 Signed Impressions: Service Date/Time: Tuesday, September 06, 2016 15:49 - CONCLUSION: No acute cardiopulmonary disease and the tip of the NG tube needs to be advanced. Mihaela Iraheta MD Objective Remarks Drips: Levophed 10 mcg/m Versed 5 mg/h Normal saline 75 mL per hour GENERAL: Elderly female who is orotracheally intubated. She has been on sedation. SKIN: Warm and dry. HEAD: Atraumatic. Normocephalic. EYES: Pupils equal and round. No scleral icterus. ENT: No nasal bleeding or discharge. Mucous membranes pink and moist. NECK: Trachea midline. No JVD. CARDIOVASCULAR: Regular rate and rhythm. No murmurs rubs or gallops. RESPIRATORY: No accessory muscle use. Clear to auscultation. Breath sounds equal bilaterally. 7.[address] GASTROINTESTINAL: Abdomen soft, non-tender, nondistended. Tube feeds running at 20 mill liters per hour. MUSCULOSKELETAL: Extremities without clubbing, cyanosis, or edema. No obvious deformities. NEUROLOGICAL: Opens eyes and makes eye contact. Localizes with all extremities but did not follow commands after very brief sedation vacation. A/P Assessment and Plan 56-year-old female with: Plan: Neuro: Status epilepticus Dementia Prior stroke Continue anticonvulsants per neurology: Fosphenytoin 200 mg PE IV every 12 hours Phenobarbital 90 mg IV every 12 hours Was previously on vimpat 50 bid. DC Versed drip per neurology recommendations. Ativan prn seizure. Head CT negative for bleed. Follow-up MRI. Followup EEG report Hold olanzapine/buspar. Hold donepezil. Neurology, Dr. Lee following. Cardiovascular: Hypotension ?secondary to sedation, phenobarbital Hyperlipidemia NS 75 L per hour Norepinephrine titrated to mean arterial pressure greater than 65. Continue statin Pulmonary: Acute respiratory failure. DuoNeb every 4 hour as needed. C- peptide trials today. GI/liver: On Jevity tube feeds and advanced to goal as tolerated. FEN/Renal: Chronic hyponatremia , improving. Hypokalemia Wilson in place. Monitor intake and output. Monitor electrolytes and replace as indicated. Replace potassium. Check urine osm, urine sodium, TSH, cortisol. ID: Mild leukocytosis Monitor for evidence of infection. Temp max 100.4. We'll culture if temp > 101. Endocrine: Euglycemic Heme: Chronic anemia Prophylaxis: pepcid/Lovenox/SCDs. ACCESS: R chest port. CCT 35 minutes exclusive of separately billable procedures. Chyna Awad MD Sep 07, 2016 11:00
[2016-09-07] MEDS ORDERED: LORazepam 2 MG/ML VIAL IV PUSH PRN (11:45)
--- NOTE | 2016-09-07 14:57 | RADRPT ---
EXAM DATE/TIME: 09/07/2016 13:54 [facility] COMPARISON: CT BRAIN W/O CONTRAST, September 06, 2016, 16:11. INDICATIONS : Epilepsy. CONTRAST: 11 cc Omniscan (gadodiamide) IV MEDICAL HISTORY : Carcinoma, esophageal. SURGICAL HISTORY : Oral surgery, hip surgery ENCOUNTER: Subsequent ACUITY: 1 day PAIN SCORE: Nonresponsive. LOCATION: cranial TECHNIQUE: Multiplanar, multisequence MRI of the brain was performed both prior to and following the administrat ion of paramagnetic contrast. FINDINGS: CEREBRUM: The ventricles are normal for age. There is cortical atrophy. No evidence of midline shift, mass les ion, hemorrhage or acute infarction. No extraaxial fluid collections are seen. The pituitary gland and suprasellar cistern are normal in configuration. WHITE MATTER: Scattered foci of bright T2 signal abnormalities are seen in the white matter. POSTERIOR FOSSA: The cerebellum and brainstem are intact. The 4th ventricle is midline. The cerebellopontine angle is unremarkable. The cerebellar tonsils are normal in position. DIFFUSION IMAGING: No focal areas of restricted diffusion are seen. No evidence of acute infarction. EXTRACRANIAL: The visualized portions of the orbits are unremarkable. Scattered sinus disease. T2 signal abnormalit y right mastoid air cells. POST-CONTRAST: There is significant artifact on contrast sequences. No abnormal areas of parenchymal or dural enhanc ement. No evidence of blood-brain barrier breakdown. CONCLUSION: 1. Cortical atrophy without acute intracranial abnormality. 2. Limited evaluation on contrasted sequences due to patient motion. 3. Minimal nonspecific white matter changes likely chronic ischemic small vessel vasculopathy. Jacobo Petersen MD on September 07, 2016 at 14:50 Board Certified Radiologist. This report was verified electronically.
[2016-09-07] MEDS ORDERED: GADODIAMIDE PF 287 MG/ML 5 ML VIAL (for RAD MRI) IV ONE (14:59)
[2016-09-07] MEDS: PROPOFOL 1000 MG/100 ML INJ 100 ML IV SCH ×2 (17:00→21:21)
[2016-09-07] MEDS: ENOXAPARIN SODIUM 40 MG/0.4 ML SYRINGE SQ SCH (21:08)
[2016-09-07] MEDS: PRAVASTATIN SOD 10 MG TAB PO SCH (21:08)
[2016-09-07] MEDS: MIDAZOLAM 100 MG/ML INJ 100 ML IV SCH (23:56)
[2016-09-08] VITALS (19 sets, daily range): BP systolic 89–118; BP diastolic 52–62; PULSE 62–118; RESP 18–21; TEMP 98.2–103.1; O2SAT 96–100
[2016-09-08] MEDS: RESP: ALBUTEROL 2.5 MG/IPRATROPIUM 0.5 MG NEB (SCH) NEB ×4 (03:24→20:23)
[2016-09-08] MEDS: CHLORHEXIDINE GLUCONATE 2 % 1 PACK (2 CLOTHS) TOP SCH (03:30)
--- NOTE | 2016-09-08 07:23 | MG ---
cc: ROLANDO LONDONO Lab No: Date: 09/08/2016 Age: Sex: F Race: EEG NUMBER [id number] NOTE Hyperventilation not performed. INDICATIONS A 56-year-old woman with dementia, depression, schizophrenia. MEDICATIONS 1. Phenobarbital. 2. Cerebyx. FINDINGS The patient does not follow commands. Diffuse 7-8 Hz rhythm is noted. The recording overall synchronous and symmetric. Photic stimulation was performed without significant posterior driving. No epileptiform or seizure activity is noted. There are no hemisphere asymmetries. IMPRESSION Basically normal EEG. Minimal theta slowing was noted. There were no focal abnormalities noted. No seizure activity was seen. MD NIC Aguialr/NERIS /7:12 AM /7:18 AM
[2016-09-08] MEDS: CHLORHEXIDINE 0.12% (ORAL KIT) 15 ML CUP MT SCH ×2 (08:00→20:35)
[2016-09-08] MEDS: MULTIVITAMIN TAB PO SCH (09:00)
[2016-09-08] MEDS ORDERED: FOSPHENYTOIN SODIUM 100 MG PE/2 ML VIAL IV SCH (09:00)
[2016-09-08 09:02] LABS: AUTOMATED NEUTROPHIL # 7.9 TH/MM3 (1.8-7.7); BASOPHIL % 0.5 % (0.0-2.0); EOSINOPHIL % 0.4 % (0.0-4.0); HEMATOCRIT 23.9 % (35.0-46.0); HEMO FLAGS DIFF FINAL; LYMPH % 3.9 % (9.0-44.0); LYMPHOCYTE # 0.3 TH/MM3 (1.0-4.8); MEAN CELL VOLUME 84.4 FL (80.0-100.0); MEAN CORPUSCULAR HEMOGLOBIN 28.4 PG (27.0-34.0); MEAN CORPUSCULAR HGB CONC 33.7 % (32.0-36.0); MONO % 5.2 % (0.0-8.0); PLATELET COUNT 243 TH/MM3 (150-450); RED BLOOD COUNT 2.83 MIL/MM3 (4.00-5.30); RED CELL DISTRIBUTION WIDTH 15.4 % (11.6-17.2); WHITE BLOOD COUNT 8.8 TH/MM3 (4.0-11.0)
[2016-09-08 09:23] LABS: BICARBONATE 25.9 MEQ/L (21.0-32.0); MAGNESIUM 1.9 MG/DL (1.5-2.5)
[2016-09-08 09:29] LABS: POTASSIUM 2.9 MEQ/L (3.5-5.1)
[2016-09-08] MEDS: FOSPHENYTOIN INJ 200 MGPE in SODIUM CHLORIDE 0.9% INJ 50 ML IV SCH ×2 (09:29→20:39)
[2016-09-08] MEDS: ACETAMINOPHEN 325 MG TAB PO PRN ×2 (09:30→20:34)
[2016-09-08] MEDS: SODIUM CHLORIDE 0.9% FLUSH 5 ML FLUSH IVF SCH ×2 (09:30→20:35)
[2016-09-08] MEDS: ASPIRIN 81 MG CHEW TAB PO SCH (09:30)
[2016-09-08] MEDS: FAMOTIDINE 20 MG TAB PO SCH (09:30)
--- NOTE | 2016-09-08 10:03 | HHI.CCPN ---
Subjective Remarks/Hospital Course This is a 56-year-old female who has a history of dementia and reported prior stroke who presents to the emergency department with reported seizures witnessed by her fdc and by EMS. Patient reportedly had 4 episodes of repetitive movements that lasted for about a minute and then subsided. Patient has a history of dementia and is unable to provide any history. [facility] gave the patient 2 mg of IM Ativan but she continued to have some repetitive movements and gaze deviation to the left. Patient received 8 mg of Ativan total in the ER however continued to have seizures. She was thought to be in status epilepticus and she was intubated by ER physician and placed on propofol as well as given 1 g of fosphenytoin IV. Dr. Lee from neurology was contacted and ordered phenobarbital and recommended versed gtt for sedation. When I evaluated the patient she was sedated, orally intubated on mechanical ventilation on a Versed drip. History was obtained by reviewing records and discussion with ER physician. Subjective: 09/07 Seen by neurology this morning and ok for versed wean and CPAP/ extubation. Right now, about to go down for MRI. 09/08 No acute events overnight. Sedated with Versed/Diprivan and intubated. T: 101.9 this morning. MRI brain: No acute intracranial abnormalities. Objective Vital Signs Date Time Temp Pulse Resp B/P Pulse Ox O2 Delivery O2 Flow Rate FiO2 09/08/16 09:07 40 09/08/16 08:00 96 09/08/16 08:00 101.9 21 112/62 100 09/06/16 19:00 Ventilator 09/06/16 15:15 2 Intake and Output 09/07/16 09/07/16 09/08/16 08:00 16:00 00:00 Intake Total 1374 ml 1319 ml 854 ml Output Total 976 ml 1600 ml 500.0 ml Balance 398 ml -281 ml 354.0 ml Result Diagram: 09/08/16 0830 [id number] Other Results Laboratory Tests Test 09/07/16 09/08/16 09/08/16 16:40 05:07 08:30 Thyroid Stimulating Hormone 1.120 uIU/ML 3rd Gen Random Cortisol 10.4 MCG/DL Phenytoin (Dilantin) Level 22.7 MCG/ML Phenobarbital Level 7.4 MCG/ML White Blood Count 8.8 TH/MM3 Red Blood Count 2.83 MIL/MM3 Hemoglobin 8.0 GM/DL Hematocrit 23.9 % Mean Corpuscular Volume 84.4 FL Mean Corpuscular Hemoglobin 28.4 PG Mean Corpuscular Hemoglobin 33.7 % Concent Red Cell Distribution Width 15.4 % Platelet Count 243 TH/MM3 Mean Platelet Volume 7.0 FL Neutrophils (%) (Auto) 90.0 % Lymphocytes (%) (Auto) 3.9 % Monocytes (%) (Auto) 5.2 % Eosinophils (%) (Auto) 0.4 % Basophils (%) (Auto) 0.5 % Neutrophils # (Auto) 7.9 TH/MM3 Lymphocytes # (Auto) 0.3 TH/MM3 Monocytes # (Auto) 0.5 TH/MM3 Eosinophils # (Auto) 0.0 TH/MM3 Basophils # (Auto) 0.0 TH/MM3 CBC Comment DIFF FINAL Differential Comment Sodium Level 133 MEQ/L Potassium Level 2.9 MEQ/L Chloride Level 100 MEQ/L Carbon Dioxide Level 25.9 MEQ/L Anion Gap 7 MEQ/L Blood Urea Nitrogen 5 MG/DL Creatinine 0.32 MG/DL Estimat Glomerular Filtration 212 ML/MIN Rate Random Glucose 98 MG/DL Calcium Level 7.5 MG/DL Phosphorus Level 1.8 MG/DL Magnesium Level 1.9 MG/DL Imaging Last Impressions Brain MRI 09/07/16 0000 Signed Impressions: Service Date/Time: Wednesday, September 07, 2016 13:54 - CONCLUSION: 1. Cortical atrophy without acute intracranial abnormality. 2. Limited evaluation on contrasted sequences due to patient motion. 3. Minimal nonspecific white matter changes likely chronic ischemic small vessel vasculopathy. Jacobo Petersen MD Head CT 09/06/16 0000 Signed Impressions: Service Date/Time: Tuesday, September 06, 2016 16:11 - CONCLUSION: Unremarkable study. Mihaela Iraheta MD Chest X-Ray 09/06/16 0000 Signed Impressions: Service Date/Time: Tuesday, September 06, 2016 15:49 - CONCLUSION: No acute cardiopulmonary disease and the tip of the NG tube needs to be advanced. Mihaela Iraheta MD Objective Remarks Drips: Levophed 3 mcg/m Versed 6 mg/h Diprivan 20 mics. GENERAL: Elderly female who is orotracheally intubated and sedated SKIN: Warm and dry. HEAD: Atraumatic. Normocephalic. EYES: Pupils equal and round. No scleral icterus. ENT: No nasal bleeding or discharge. Mucous membranes pink and moist. NECK: Trachea midline. No JVD. CARDIOVASCULAR: Regular rate and rhythm. No murmurs rubs or gallops. RESPIRATORY: No accessory muscle use. Clear to auscultation. Breath sounds equal bilaterally. 7.[address] GASTROINTESTINAL: Abdomen soft, non-tender, nondistended. Tube feeds running at 20 mill liters per hour. MUSCULOSKELETAL: Extremities without clubbing, cyanosis, or edema. No obvious deformities. NEUROLOGICAL: Sedated and intubated. A/P Assessment and Plan 56-year-old female with: Plan: Neuro: Status epilepticus Dementia Prior stroke Continue anticonvulsants per neurology: Fosphenytoin 200 mg PE IV every 12 hours Phenobarbital 90 mg IV every 12 hours Ativan prn seizure. Head CT negative for bleed. MRI brain: Cortical atrophy without acute intracranial abnormality. Limited evaluation on contrasted sequences due to patient motion. Minimal nonspecific white matter changes likely chronic ischemic small vessel vasculopathy. EEG : No fical abnormalities, no seizure activity. Neurology, Dr. Lee following. Cardiovascular: Hypotension ?secondary to sedation, phenobarbital Hyperlipidemia Off Levophed this morning monitor HR and BP keep MAP>65mmHg Continue statin. Pulmonary: Continue with vent support keep sat >92% Bronchodilators, ICU vent bundle, CPAP trials as lew and possible extubation today. GI/liver: On Jevity tube feeds @60ml/hr FEN/Renal: Chronic hyponatremia , improving. Hypokalemia, hypophos Wilson in place. Monitor intake and output. Monitor electrolytes and replace as indicated. Needs K.Phos replacement today ID: Mild leukocytosis- Resolved Monitor for evidence of infection. Temp max 100.4. We'll culture if temp > 101. Endocrine: Euglycemic Heme: Chronic anemia Monitor CBC Prophylaxis: Pepcid/Lovenox/SCDs. ACCESS: R chest port. CCT 30 minutes exclusive of separately billable procedures. Reggie Antonio MD Sep 08, 2016 10:03
--- NOTE | 2016-09-08 10:43 | RADRPT ---
EXAM DATE/TIME: 09/08/2016 09:56 [facility] COMPARISON: CHEST SINGLE AP, September 06, 2016, 15:49. INDICATIONS : Ventilator Dependent Respiratory Failure. MEDICAL HISTORY : Cardiovascular disease. Dementia SURGICAL HISTORY : Tonsillectomy. ENCOUNTER: Subsequent ACUITY: 3 days PAIN SCORE: Non-responsive. LOCATION: Bilateral chest FINDINGS: The support devices remain in place. The lungs are well aerated and grossly clear. There is no pneumo thorax. The heart size is stable. There are no pleural effusions. CONCLUSION: No focal or acute pulmonary infiltrates. Arnol Moon MD on September 08, 2016 at 10:40 Board Certified Radiologist. This report was verified electronically.
[2016-09-08 11:20] LABS: BACTERIA, URINE RARE /hpf; BLOOD, URINE TRACE (NEG); GLUCOSE,URINE NEG (NEG); KETONE, URINE NEG (NEG); MUCUS URINE FEW /lpf (OCC); NITRITE,URINE NEG (NEG); SQUAMOUS EPITHELIAL CELL URINE <1 /hpf (0-5); TRANSITIONAL EPI CELLS, URINE <1 /hpf; URINE COLOR YELLOW (YELLW/STRAW)
[2016-09-08 11:32] LABS: COMMENT (UR) CATH-CULTURE IND; CULTURE IF INDICATED CATH CULTURE IND
[2016-09-08] MEDS: POTASSIUM CHLOR 40 MEQ PREMIX 100 ML IV PRN ×2 (11:47→14:00)
[2016-09-08] MEDS: PROPOFOL 1000 MG/100 ML INJ 100 ML IV SCH ×2 (13:40→23:05)
[2016-09-08] MEDS: ENOXAPARIN SODIUM 40 MG/0.4 ML SYRINGE SQ SCH (20:34)
[2016-09-08] MEDS: PRAVASTATIN SOD 10 MG TAB PO SCH (20:34)
[2016-09-08] MEDS: NOREPINEPHRINE-DEXTROSE DRIP 250 ML IV SCH (23:05)
[2016-09-08] MEDS: POTASSIUM CL 40 MEQ/30 ML LIQ UDC PO/TUBE PRN (23:41)
[2016-09-09] VITALS (19 sets, daily range): BP systolic 91–118; BP diastolic 55–64; PULSE 78–116; RESP 18–28; TEMP 98.8–102.7; O2SAT 92–100
[2016-09-09] MEDS: RESP: ALBUTEROL 2.5 MG/IPRATROPIUM 0.5 MG NEB (SCH) NEB ×4 (02:59→21:10)
[2016-09-09] MEDS: CHLORHEXIDINE GLUCONATE 2 % 1 PACK (2 CLOTHS) TOP SCH (03:00)
[2016-09-09 04:22] LABS: AUTOMATED NEUTROPHIL # 7.8 TH/MM3 (1.8-7.7); BASOPHIL % 0.4 % (0.0-2.0); EOSINOPHIL % 0.4 % (0.0-4.0); HEMATOCRIT 23.3 % (35.0-46.0); HEMO FLAGS DIFF FINAL; LYMPH % 2.4 % (9.0-44.0); LYMPHOCYTE # 0.2 TH/MM3 (1.0-4.8); MEAN CORPUSCULAR HEMOGLOBIN 28.8 PG (27.0-34.0); MEAN CORPUSCULAR HGB CONC 33.9 % (32.0-36.0); MONO % 6.6 % (0.0-8.0); NEUT % 90.2 % (16.0-70.0); PLATELET COUNT 222 TH/MM3 (150-450); RED BLOOD COUNT 2.74 MIL/MM3 (4.00-5.30); RED CELL DISTRIBUTION WIDTH 15.4 % (11.6-17.2); WHITE BLOOD COUNT 8.7 TH/MM3 (4.0-11.0)
[2016-09-09] MEDS: ACETAMINOPHEN 325 MG TAB PO PRN (04:27)
[2016-09-09 04:46] LABS: BICARBONATE 24.2 MEQ/L (21.0-32.0); MAGNESIUM 2.1 MG/DL (1.5-2.5); POTASSIUM 3.6 MEQ/L (3.5-5.1)
[2016-09-09] MEDS: PROPOFOL 1000 MG/100 ML INJ 100 ML IV SCH ×2 (06:36→10:21)
[2016-09-09] MEDS: POTASSIUM PHOSPHATE MONOBASIC 500 MG TAB PO PRN ×3 (06:56→20:54)
[2016-09-09] MEDS: CHLORHEXIDINE 0.12% (ORAL KIT) 15 ML CUP MT SCH ×2 (08:00→20:52)
[2016-09-09] MEDS: MULTIVITAMIN TAB PO SCH (09:00)
[2016-09-09] MEDS ORDERED: SODIUM CHLOR 0.9% 1000 ML INJ 1,000 ML IV ONE (09:45)
--- NOTE | 2016-09-09 09:46 | HHI.CCPN ---
Subjective Remarks/Hospital Course This is a 56-year-old female who has a history of dementia and reported prior stroke who presents to the emergency department with reported seizures witnessed by her longterm and by EMS. Patient reportedly had 4 episodes of repetitive movements that lasted for about a minute and then subsided. Patient has a history of dementia and is unable to provide any history. [facility] gave the patient 2 mg of IM Ativan but she continued to have some repetitive movements and gaze deviation to the left. Patient received 8 mg of Ativan total in the ER however continued to have seizures. She was thought to be in status epilepticus and she was intubated by ER physician and placed on propofol as well as given 1 g of fosphenytoin IV. Dr. Lee from neurology was contacted and ordered phenobarbital and recommended versed gtt for sedation. When I evaluated the patient she was sedated, orally intubated on mechanical ventilation on a Versed drip. History was obtained by reviewing records and discussion with ER physician. Subjective: 09/07 Seen by neurology this morning and ok for versed wean and CPAP/ extubation. Right now, about to go down for MRI. 09/08 No acute events overnight. Sedated with Versed/Diprivan and intubated. T: 101.9 this morning. MRI brain: No acute intracranial abnormalities. 09/09 Patient is sedated with Diprivan and intubated. Did not tolerate CPAP trials this morning as she became tachypneic. Spiked fever with T: 102.7 at 4am. CXR from yesterday showed no acute infiltrates. On Levophed 6 mics. Objective Vital Signs Date Time Temp Pulse Resp B/P Pulse Ox O2 Delivery O2 Flow Rate FiO2 09/09/16 09:00 30 09/09/16 08:06 100 09/09/16 08:00 88 09/09/16 08:00 99.8 28 113/60 09/06/16 19:00 Ventilator 09/06/16 15:15 2 Intake and Output 09/08/16 09/08/16 09/09/16 08:00 16:00 00:00 Intake Total 720 ml 787 ml 1024 ml Output Total 500 ml 950 ml 275 ml Balance 220 ml -163 ml 749 ml Result Diagram: 09/09/164 09/09/16 0314 Other Results Laboratory Tests Test 09/08/16 09/08/16 09/09/16 09:50 20:30 03:14 Urine Color YELLOW Urine Turbidity CLEAR Urine pH 6.0 Urine Specific [place] 1.011 Urine Protein NEG mg/dL Urine Glucose (UA) NEG mg/dL Urine Ketones NEG mg/dL Urine Occult Blood TRACE Urine Nitrite NEG Urine Bilirubin NEG Urine Urobilinogen LESS THAN 2.0 MG/DL Urine Leukocyte Esterase NEG Urine RBC 4 /hpf Urine WBC 3 /hpf Urine WBC Clumps RARE Urine Squamous Epithelial <1 /hpf Cells Urine Transitional Epithelial <1 /hpf Cells Urine Bacteria RARE /hpf Urine Mucus FEW /lpf Microscopic Urinalysis Comment CATH-CULTURE IND Urine Osmolality 456 MOSM/KG Urine Random Sodium 123 MEQ/L Potassium Level 3.4 MEQ/L 3.6 MEQ/L White Blood Count 8.7 TH/MM3 Red Blood Count 2.74 MIL/MM3 Hemoglobin 7.9 GM/DL Hematocrit 23.3 % Mean Corpuscular Volume 85.0 FL Mean Corpuscular Hemoglobin 28.8 PG Mean Corpuscular Hemoglobin 33.9 % Concent Red Cell Distribution Width 15.4 % Platelet Count 222 TH/MM3 Mean Platelet Volume 7.7 FL Neutrophils (%) (Auto) 90.2 % Lymphocytes (%) (Auto) 2.4 % Monocytes (%) (Auto) 6.6 % Eosinophils (%) (Auto) 0.4 % Basophils (%) (Auto) 0.4 % Neutrophils # (Auto) 7.8 TH/MM3 Lymphocytes # (Auto) 0.2 TH/MM3 Monocytes # (Auto) 0.6 TH/MM3 Eosinophils # (Auto) 0.0 TH/MM3 Basophils # (Auto) 0.0 TH/MM3 CBC Comment DIFF FINAL Differential Comment Sodium Level 136 MEQ/L Chloride Level 103 MEQ/L Carbon Dioxide Level 24.2 MEQ/L Anion Gap 9 MEQ/L Blood Urea Nitrogen 7 MG/DL Creatinine 0.31 MG/DL Estimat Glomerular Filtration 220 ML/MIN Rate Random Glucose 105 MG/DL Calcium Level 7.5 MG/DL Phosphorus Level 2.3 MG/DL Magnesium Level 2.1 MG/DL Phenytoin (Dilantin) Level 25.3 MCG/ML Imaging Last Impressions Chest X-Ray 09/08/16 0000 Signed Impressions: Service Date/Time: Thursday, September 08, 2016 09:56 - CONCLUSION: No focal or acute pulmonary infiltrates. Arnol Moon MD Brain MRI 09/07/16 0000 Signed Impressions: Service Date/Time: Wednesday, September 07, 2016 13:54 - CONCLUSION: 1. Cortical atrophy without acute intracranial abnormality. 2. Limited evaluation on contrasted sequences due to patient motion. 3. Minimal nonspecific white matter changes likely chronic ischemic small vessel vasculopathy. Jacobo Petersen MD Head CT 09/06/16 0000 Signed Impressions: Service Date/Time: Tuesday, September 06, 2016 16:11 - CONCLUSION: Unremarkable study. Mihaela Iraheta MD Objective Remarks Drips: Levophed 6 mcg/m Diprivan 20 mics. GENERAL: Elderly female who is orotracheally intubated and sedated SKIN: Warm and dry. HEAD: Atraumatic. Normocephalic. EYES: Pupils equal and round. No scleral icterus. ENT: No nasal bleeding or discharge. Mucous membranes pink and moist. NECK: Trachea midline. No JVD. CARDIOVASCULAR: Regular rate and rhythm. No murmurs rubs or gallops. RESPIRATORY: No accessory muscle use. Clear to auscultation. Breath sounds equal bilaterally. 7.[address] GASTROINTESTINAL: Abdomen soft, non-tender, nondistended. Tube feeds running at 20 mill liters per hour. MUSCULOSKELETAL: Extremities without clubbing, cyanosis, or edema. No obvious deformities. NEUROLOGICAL: Sedated and intubated. A/P Assessment and Plan 56-year-old female with: Plan: Neuro: Status epilepticus Dementia Prior stroke Continue anticonvulsants per neurology: Fosphenytoin 200 mg PE IV every 12 hours Phenobarbital 90 mg IV every 12 hours Ativan prn seizure. Head CT negative for bleed. MRI brain: Cortical atrophy without acute intracranial abnormality. Limited evaluation on contrasted sequences due to patient motion. Minimal nonspecific white matter changes likely chronic ischemic small vessel vasculopathy. EEG : No focal abnormalities, no seizure activity. Neurology, Dr. Lee following. - On Diprivan infusion for sedation. Daily sedation vacation. -Place on Precedex drip to facilitate with weaning trials. Cardiovascular: Hypotension ?secondary to sedation, phenobarbital Hyperlipidemia Wean off Levophed this morning monitor HR and BP keep MAP>65mmHg Continue statin. Give NS 1 liter bolus x1. Pulmonary: Continue with vent support keep sat >92% Bronchodilators, ICU vent bundle, CPAP trials as lew CXR 09/08: No focal infiltrates. GI/liver: On Jevity tube feeds @60ml/hr FEN/Renal: Chronic hyponatremia , improving. Wilson in place. Monitor intake and output. Monitor electrolytes and replace as indicated. ID: Mild leukocytosis- Resolved Febrile Illness Monitor for evidence of infection. Pancultured 09/[address] on empiric abx ( Vanco, Zosyn) Endocrine: Euglycemic Heme: Chronic anemia Monitor CBC Prophylaxis: Pepcid/Lovenox/SCDs. ACCESS: R chest port. CCT 30 minutes exclusive of separately billable procedures. Reggie Antonio MD Sep 09, 2016 09:46
[2016-09-09] MEDS: PIPERACIL-TAZO 3.375 GM PREMIX 50 ML IV SCH ×2 (10:18→15:47)
[2016-09-09] MEDS: NOREPINEPHRINE-DEXTROSE DRIP 250 ML IV SCH (10:18)
[2016-09-09] MEDS: FOSPHENYTOIN INJ 200 MGPE in SODIUM CHLORIDE 0.9% INJ 50 ML IV SCH ×2 (10:18→20:53)
[2016-09-09] MEDS: SODIUM CHLORIDE 0.9% FLUSH 5 ML FLUSH IVF SCH ×2 (10:19→20:53)
[2016-09-09] MEDS: FAMOTIDINE 20 MG TAB PO SCH (10:20)
[2016-09-09] MEDS: ASPIRIN 81 MG CHEW TAB PO SCH (10:20)
[2016-09-09] MEDS ORDERED: VANCOMYCIN INJ 1,000 MG in SODIUM CHLOR 0.9% 250 ML INJ 250 ML IV SCH (11:00)
[2016-09-09] MEDS ORDERED: SODIUM CHLORID 0.9% 500 ML INJ 500 ML IV ONE (12:00)
[2016-09-09] MEDS: DEXMEDETOMIDINE INJ 50 ML IV SCH ×3 (12:32→21:46)
[2016-09-09] MEDS ORDERED: fentaNYL DRIP 250 ML IV SCH (17:15)
--- NOTE | 2016-09-09 17:45 | PD.ID.CON ---
History of Present Illness Service Infectious Disease Consult Requested By Reason for Consult Evaluation and Mment of MSSA bacteremia and sepsis. Primary Care Physician Dominick Ledezma MD Diagnoses: History of Present Illness Ms. Ochoa is a 56 y/o CF with PMHX of unknown type of throat cancer s/p chemotherapy and radiation therapy 3 yrs back. Patient has not received any chemo (using right chest wall port or radiation for last 3 yrs and upon follow up at [facility] is reportedly free of any disease per Juan Ochoa. He reports the port has been used at [facility] and at hospitals when she is admitted. He also reports patient has been on some antibiotics and MAR from [facility] reflects she was on Rocephin. 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 With this background patient now presents to the emergency department with reported seizures witnessed by her fpc and by EMS. Patient reportedly had 4 episodes of repetitive movements that lasted for about a minute and then subsided. [facility] gave the patient 2 mg of IM Ativan but she continued to have some repetitive movements and gaze deviation to the left. Patient received 8 mg of Ativan total in the ER however continued to have seizures. She was thought to be in status epilepticus and she was intubated by ER physician and placed on propofol as well as given 1 g of fosphenytoin IV. Dr. Lee from neurology has been following the patient. Patient underwent workup for sepsis on admission and blood cultures are positive for Staph aureus. ID is consulted for evaluation and Mment of Staph bacteremia and Sepsis. Review of Systems ROS Limitations: Intubated Past Family Social History Allergies: Coded Allergies: No Known Allergies (Verified , 09/06/16) Past Medical History Anxiety Depression Psychosis. Schizophrenia Alcohol induced dementia. h/o stroke. Seizure disorder Throat cancer s/p chemo and radiation at [facility]. Past Surgical History Appendectomy: Yes Tonsillectomy: Yes ? throat surgery or biopsy at [facility]. Port placement at [facility] ~ 3 yrs back. Reported Medications Reported Meds & Active Scripts Active Ativan (Lorazepam) 0.5 Mg Tab 0.5 Mg PO Q8H PRN Dilantin (Phenytoin Extended) 100 Mg Cap 100 Mg PO TID Reported Ducodyl DR (Bisacodyl) 5 Mg Tabdr 5 Mg PO DAILY PRN Olanzapine 5 Mg Tab 5 Mg PO BID Naproxen 500 Mg Tab 500 Mg PO BID Trazodone (Trazodone HCl) 50 Mg Tab 50 Mg PO HS Rocephin Inj (Ceftriaxone Sodium) 1 Gm Inj 1 Gm IM ONCE Nuedexta 20-10 mg (Dextromethorphan HBr-Quinidine) 1 Cap Cap 1 Cap PO BID Multiple Vitamin 1 Tab 1 Tab PO DAILY Buspirone (Buspirone HCl) 15 Mg Tab 15 Mg PO TID Pantoprazole (Pantoprazole Sodium) 40 Mg Tab 40 Mg PO BID Vimpat (Lacosamide) 50 Mg Tab 50 Mg PO BID Simvastatin 5 Mg Tab 5 Mg PO HS Donepezil 10 Mg Tab 10 Mg PO HS Aspirin 81 Mg Tabdr 81 Mg PO DAILY Active Ordered Medications Current Medications Medications (Trade) Dose Ordered Sig/Cristofer Route Start Time Stop Time Status Last Admin (Diprivan 1000 Mg/100ml Inj) 100 ml @ 0 mls/hr TITRATE IV 09/06/16 15:30 09/09/16 10:21 (NS Flush) 2 ml UNSCH PRN IVF 09/06/16 19:00 (NS Flush) 2 ml BID IVF 09/06/16 21:00 09/09/16 10:19 (Tylenol) 650 mg Q6H PRN PO 09/06/16 19:00 09/09/16 04:27 (Peridex 0.12% Liq) 15 ml BID@08,20 MT 09/06/16 20:00 09/09/16 08:00 (Pepcid) 20 mg DAILY PO 09/07/16 09:00 09/09/16 10:20 (Lovenox Inj) 40 mg Q24H SQ 09/06/16 20:00 09/08/16 20:34 Miscellaneous Information 1 Q361D XX 09/06/16 19:00 (Chlorhexidine 2% Cloth) 3 pack Taper DAILY@04 TOP 09/07/16 04:00 09/03/17 03:59 09/09/16 03:00 Chlorhexidine Gluconate 3 pack 3 pack UNSCH PRN TOP 09/06/16 19:00 (Levophed-Dextrose Drip) 250 ml @ 0 mls/hr TITRATE IV 09/06/16 23:15 09/09/16 10:18 Terbutaline Sulfate 1 mg 1 mg UNSCH PRN SQ 09/06/16 23:15 Potassium Chloride 100 ml @ 50 mls/hr Q2H PRN IV 09/07/16 10:45 09/08/16 14:00 (KCl 20 Meq Premix Inj) 100 ml @ 50 mls/hr Q2H PRN IV 09/07/16 10:45 Potassium Chloride 40 meq 40 meq UNSCH PRN PO/TUBE 09/07/16 10:45 09/08/16 23:41 Potassium Chloride 100 ml @ 25 mls/hr UNSCH PRN IV 09/07/16 10:45 Potassium Chloride 100 ml @ 50 mls/hr Q2H PRN IV 09/07/16 10:45 (Magnesium Sulfate Inj/NS Inj) 100 ml @ 50 mls/hr UNSCH PRN IV 09/07/16 10:45 Magnesium Oxide 800 mg 800 mg UNSCH PRN PO 09/07/16 10:45 (Magnesium Sulfate Inj/NS Inj) 100 ml @ 50 mls/hr UNSCH PRN IV 09/07/16 10:45 Potassium Phosphate 2000 mg 2,000 mg Q4H PRN PO 09/07/16 10:45 09/09/16 15:39 (Sodium Phosphate Inj/NS 250 ml Inj) 250 ml @ 42 mls/hr UNSCH PRN IV 09/07/16 10:45 09/08/16 17:41 (KCl 40 Meq/30 ml Liq) 40 meq UNSCH PRN PO/TUBE 09/07/16 10:45 Potassium Phosphate 2000 mg 2,000 mg UNSCH PRN PO/TUBE 09/07/16 10:45 Potassium Phosphate 30 mmol/ Sodium Chloride 260 ml @ 42 mls/hr UNSCH PRN IV 09/07/16 10:45 (Cerebyx Inj/NS Inj) 54 ml @ 108 mls/hr Q12HR IV 09/08/16 09:00 09/09/16 10:18 (Ativan Inj) 1 mg Q5M PRN IV PUSH 09/07/16 11:45 09/07/16 17:00 (Aspirin Chew) 81 mg DAILY PO 09/08/16 09:00 09/09/16 10:20 (Theragran) 1 tab DAILY PO 09/08/16 09:00 (Pravachol) 10 mg HS PO 09/07/16 21:00 09/08/16 20:34 Phenobarbital Sodium 90 mg 90 mg Q12HR IVP 09/08/16 09:00 09/09/16 10:19 Dexmedetomidine HCl 50 ml @ 0 mls/hr TITRATE IV 09/09/16 09:45 09/09/16 15:46 Piperacillin Sod/ Tazobactam Sod 50 ml @ 100 mls/hr Q6H IV 09/09/16 10:00 09/09/16 15:47 Vancomycin HCl 1000 mg/Sodium Chloride 250 ml @ 250 mls/hr Q12H IV 09/09/16 11:00 09/09/16 10:19 (fentaNYL DRIP) 250 ml @ 0 mls/hr TITRATE IV 09/09/16 17:15 Family History NC from ID standpoint. Social History Alcohol in past. Resident of [facility]. Physical Exam Vital Signs Vital Signs Date Time Temp Pulse Resp B/P Pulse Ox O2 Delivery O2 Flow Rate FiO2 09/09/16 16:16 100 30 09/09/16 16:00 30 09/09/16 16:00 98.8 91 22 91/57 98 09/09/16 16:00 89 09/09/16 14:00 91 09/09/16 12:02 92 30 09/09/16 12:00 30 09/09/16 12:00 104 09/09/16 12:00 99.9 98 21 100/55 100 09/09/16 10:00 110 09/09/16 09:00 30 09/09/16 08:06 100 30 09/09/16 08:00 88 09/09/16 08:00 30 09/09/16 08:00 99.8 116 28 113/60 100 09/09/16 06:00 96 09/09/16 04:17 100 40 09/09/16 04:00 40 09/09/16 04:00 101 09/09/16 04:00 102.7 101 22 110/58 100 09/09/16 02:00 99 09/09/16 00:53 100 30 09/09/16 00:00 40 09/09/16 00:00 78 09/09/16 00:00 99.9 78 18 118/64 100 09/08/16 22:00 81 09/08/16 22:00 102.1 81 09/08/16 20:23 96 40 09/08/16 20:00 100 09/08/16 20:00 40 09/08/16 20:00 103.1 100 18 96/52 100 09/08/16 18:00 97 Physical Exam GENERAL: This is a well-nourished, well-developed patient, in no apparent distress. SKIN: No rashes, ecchymoses or lesions. Cool and dry. HEAD: Atraumatic. Normocephalic. No temporal or scalp tenderness. EYES: Pupils equal round and reactive. Extraocular motions intact. No scleral icterus. No injection or drainage. ENT: Intubated. NECK: Trachea midline. Supple, nontender, no meningeal signs. CARDIOVASCULAR: Regular rate and rhythm without murmurs, gallops, or rubs. RESPIRATORY: Clear to auscultation. Breath sounds equal bilaterally. No wheezes , rales, or rhonchi. GASTROINTESTINAL: Abdomen soft, non-tender, nondistended. No hepato-splenomegaly , or palpable masses. No guarding. MUSCULOSKELETAL: Extremities without clubbing, cyanosis, or edema. No joint tenderness, effusion, or edema noted. No calf tenderness. Negative Homans sign bilaterally. NEUROLOGICAL: Opens eyes spontaneously. Moves extremities. Psych: could not be assessed. Port site with no e/o infection. Laboratory Laboratory Tests Test 09/08/16 09/09/16 20:30 03:14 Potassium Level 3.4 3.6 White Blood Count 8.7 Red Blood Count 2.74 Hemoglobin 7.9 Hematocrit 23.3 Mean Corpuscular Volume 85.0 Mean Corpuscular Hemoglobin 28.8 Mean Corpuscular Hemoglobin 33.9 Concent Red Cell Distribution Width 15.4 Platelet Count 222 Mean Platelet Volume 7.7 Neutrophils (%) (Auto) 90.2 Lymphocytes (%) (Auto) 2.4 Monocytes (%) (Auto) 6.6 Eosinophils (%) (Auto) 0.4 Basophils (%) (Auto) 0.4 Neutrophils # (Auto) 7.8 Lymphocytes # (Auto) 0.2 Monocytes # (Auto) 0.6 Eosinophils # (Auto) 0.0 Basophils # (Auto) 0.0 CBC Comment DIFF FINAL Differential Comment Sodium Level 136 Chloride Level 103 Carbon Dioxide Level 24.2 Anion Gap 9 Blood Urea Nitrogen 7 Creatinine 0.31 Estimat Glomerular Filtration 220 Rate Random Glucose 105 Calcium Level 7.5 Phosphorus Level 2.3 Magnesium Level 2.1 Phenytoin (Dilantin) Level 25.3 Date/Time Procedure Status Source Growth 09/08/16 11:26 Aerobic Blood Culture - Preliminary Resulted Blood Peripheral Staphylococcus Aureus 09/08/16 11:26 Anaerobic Blood Culture - Preliminary Resulted Gram Positive Cocci 09/08/16 09:50 Urine Culture - Preliminary Resulted Urine Catheterized Urine NO GROWTH IN 24 HOURS. 09/08/16 09:50 Gram Stain - Final Resulted Sputum Endotracheal 09/08/16 09:50 Sputum Culture - Preliminary Resulted Staphylococcus Aureus Result Diagram: 09/09/164 09/09/164 Imaging Last Impressions Chest X-Ray 09/08/16 0000 Signed Impressions: Service Date/Time: Thursday, September 08, 2016 09:56 - CONCLUSION: No focal or acute pulmonary infiltrates. Arnol Moon MD Brain MRI 09/07/16 0000 Signed Impressions: Service Date/Time: Wednesday, September 07, 2016 13:54 - CONCLUSION: 1. Cortical atrophy without acute intracranial abnormality. 2. Limited evaluation on contrasted sequences due to patient motion. 3. Minimal nonspecific white matter changes likely chronic ischemic small vessel vasculopathy. Jacobo Petersen MD Head CT 09/06/16 0000 Signed Impressions: Service Date/Time: Tuesday, September 06, 2016 16:11 - CONCLUSION: Unremarkable study. Mihaela Iraheta MD Assessment and Plan Assessment and Plan Sepsis p MSSA bacteremia likely port related.(Was on Rocephin prior to admission) Staph in sputum likely colonization as CXR normal. Acute metabolic encephalopathy: seizure related, infection. Port in place Recs: repeat BCX 1 from periphery and 1 from port. DC Zosyn IV DC Vanco IV Start Ancef IV 2D ECHO Doppler Right UE to look for septic thrombophlebitis. Follow cultures Follow clinically. If blood cultures are persistently positive will get CT C/A/P to look for evidence of dissemination. Port will likely need to be removed. Check CRP Case d/w RN, patients spouse, . Critical thinking and decision making , reviewed past records, d.w spouse over phone and obtained details about cancer and port. Time in excess of 60 mins. Coco Harvey MD Sep 09, 2016 17:45
[2016-09-09 19:05] LABS: PHENOBARBITAL 12.6 MCG/ML (15.0-40.0)
[2016-09-09] MEDS: ENOXAPARIN SODIUM 40 MG/0.4 ML SYRINGE SQ SCH (20:52)
[2016-09-09] MEDS: PRAVASTATIN SOD 10 MG TAB PO SCH (20:54)
[2016-09-10] VITALS (18 sets, daily range): BP systolic 85–103; BP diastolic 54–68; PULSE 76–99; RESP 18–24; TEMP 98.5–102; O2SAT 96–100
[2016-09-10] MEDS: ACETAMINOPHEN 325 MG TAB PO PRN (00:10)
[2016-09-10] MEDS: NOREPINEPHRINE-DEXTROSE DRIP 250 ML IV SCH ×2 (00:11→09:15)
[2016-09-10] MEDS: CHLORHEXIDINE GLUCONATE 2 % 1 PACK (2 CLOTHS) TOP SCH (03:45)
[2016-09-10] MEDS: DEXMEDETOMIDINE INJ 50 ML IV SCH ×2 (03:45→09:15)
[2016-09-10] MEDS: RESP: ALBUTEROL 2.5 MG/IPRATROPIUM 0.5 MG NEB (SCH) NEB ×4 (03:54→21:00)
[2016-09-10 05:17] LABS: AUTOMATED NEUTROPHIL # 7.1 TH/MM3 (1.8-7.7); BASOPHIL % 0.2 % (0.0-2.0); EOSINOPHIL % 0.1 % (0.0-4.0); LYMPH % 5.4 % (9.0-44.0); LYMPHOCYTE # 0.4 TH/MM3 (1.0-4.8); MEAN CELL VOLUME 85.5 FL (80.0-100.0); MEAN CORPUSCULAR HEMOGLOBIN 28.4 PG (27.0-34.0); MEAN CORPUSCULAR HGB CONC 33.3 % (32.0-36.0); MONO % 7.2 % (0.0-8.0); NEUT % 87.1 % (16.0-70.0); PLATELET COUNT 177 TH/MM3 (150-450); RED BLOOD COUNT 2.43 MIL/MM3 (4.00-5.30); RED CELL DISTRIBUTION WIDTH 15.6 % (11.6-17.2); WHITE BLOOD COUNT 8.1 TH/MM3 (4.0-11.0)
[2016-09-10 05:19] LABS: HEMO FLAGS DIFF FINAL
[2016-09-10 05:21] LABS: HEMATOCRIT 20.8 % (35.0-46.0)
[2016-09-10 05:34] LABS: BICARBONATE 24.3 MEQ/L (21.0-32.0); MAGNESIUM 2.1 MG/DL (1.5-2.5); POTASSIUM 3.3 MEQ/L (3.5-5.1)
[2016-09-10 05:46] LABS: CALCIUM-PROTEIN CORRECTED 8.1 MG/DL (8.5-10.1)
[2016-09-10] MEDS: POTASSIUM PHOSPHATE MONOBASIC 500 MG TAB PO PRN (06:08)
[2016-09-10] MEDS: POTASSIUM CL 40 MEQ/30 ML LIQ UDC PO/TUBE PRN (06:08)
[2016-09-10] MEDS: FOSPHENYTOIN INJ 200 MGPE in SODIUM CHLORIDE 0.9% INJ 50 ML IV SCH ×2 (09:00→20:17)
[2016-09-10] MEDS: CHLORHEXIDINE 0.12% (ORAL KIT) 15 ML CUP MT SCH ×2 (09:16→20:00)
[2016-09-10] MEDS: SODIUM CHLORIDE 0.9% FLUSH 5 ML FLUSH IVF SCH ×2 (09:17→20:16)
[2016-09-10] MEDS: FAMOTIDINE 20 MG TAB PO SCH (09:18)
[2016-09-10] MEDS: MULTIVITAMIN TAB PO SCH (09:18)
[2016-09-10] MEDS: ASPIRIN 81 MG CHEW TAB PO SCH (09:18)
[2016-09-10] MEDS ORDERED: GLUCAGON 1 MG/ML VIAL OTHER PRN (10:15)
[2016-09-10] MEDS ORDERED: DEXTROSE 50% IN WATER 50 ML VIAL(D50) IV PUSH PRN (10:15)
--- NOTE | 2016-09-10 10:19 | HHI.CCPN ---
Subjective Remarks/Hospital Course This is a 56-year-old female who has a history of dementia and reported prior stroke who presents to the emergency department with reported seizures witnessed by her jail and by EMS. Patient reportedly had 4 episodes of repetitive movements that lasted for about a minute and then subsided. Patient has a history of dementia and is unable to provide any history. [facility] gave the patient 2 mg of IM Ativan but she continued to have some repetitive movements and gaze deviation to the left. Patient received 8 mg of Ativan total in the ER however continued to have seizures. She was thought to be in status epilepticus and she was intubated by ER physician and placed on propofol as well as given 1 g of fosphenytoin IV. Dr. Lee from neurology was contacted and ordered phenobarbital and recommended versed gtt for sedation. When I evaluated the patient she was sedated, orally intubated on mechanical ventilation on a Versed drip. History was obtained by reviewing records and discussion with ER physician. Subjective: 09/07 Seen by neurology this morning and ok for versed wean and CPAP/ extubation. Right now, about to go down for MRI. 09/08 No acute events overnight. Sedated with Versed/Diprivan and intubated. T: 101.9 this morning. MRI brain: No acute intracranial abnormalities. 09/09 Patient is sedated with Diprivan and intubated. Did not tolerate CPAP trials this morning as she became tachypneic. Spiked fever with T: 102.7 at 4am. CXR from yesterday showed no acute infiltrates On Levophed 6 mics. 09/10 Patient remained sedated and intubated. On Levophed 8 mics. Tmax 102 at midnight. Objective Vital Signs Date Time Temp Pulse Resp B/P Pulse Ox O2 Delivery O2 Flow Rate FiO2 09/10/16 08:06 100 30 09/10/16 06:00 76 09/10/16 04:00 98.5 18 94/57 09/06/16 19:00 Ventilator 09/06/16 15:15 2 Intake and Output 09/09/16 09/09/16 09/09/16 07:59 15:59 23:59 Intake Total 877 ml 2317 ml 1470 ml Output Total 450 ml 700 ml 350 ml Balance 427 ml 1617 ml 1120 ml Result Diagram: 09/10/16 0450 09/10/16 0450 Other Results Laboratory Tests Test 09/09/16 09/10/16 17:55 04:50 Phosphorus Level 2.4 MG/DL 1.9 MG/DL C-Reactive Protein 18.00 MG/DL Phenobarbital Level 12.6 MCG/ML White Blood Count 8.1 TH/MM3 Red Blood Count 2.43 MIL/MM3 Hemoglobin 6.9 GM/DL Hematocrit 20.8 % Mean Corpuscular Volume 85.5 FL Mean Corpuscular Hemoglobin 28.4 PG Mean Corpuscular Hemoglobin 33.3 % Concent Red Cell Distribution Width 15.6 % Platelet Count 177 TH/MM3 Mean Platelet Volume 7.9 FL Neutrophils (%) (Auto) 87.1 % Lymphocytes (%) (Auto) 5.4 % Monocytes (%) (Auto) 7.2 % Eosinophils (%) (Auto) 0.1 % Basophils (%) (Auto) 0.2 % Neutrophils # (Auto) 7.1 TH/MM3 Lymphocytes # (Auto) 0.4 TH/MM3 Monocytes # (Auto) 0.6 TH/MM3 Eosinophils # (Auto) 0.0 TH/MM3 Basophils # (Auto) 0.0 TH/MM3 CBC Comment DIFF FINAL Differential Comment Sodium Level 136 MEQ/L Potassium Level 3.3 MEQ/L Chloride Level 104 MEQ/L Carbon Dioxide Level 24.3 MEQ/L Anion Gap 8 MEQ/L Blood Urea Nitrogen 11 MG/DL Creatinine 0.36 MG/DL Estimat Glomerular Filtration 185 ML/MIN Rate Random Glucose 225 MG/DL Calcium Level 7.0 MG/DL Protein Corrected Calcium 8.1 MG/DL Magnesium Level 2.1 MG/DL Total Protein 5.1 GM/DL Phenytoin (Dilantin) Level 24.0 MCG/ML Imaging Last Impressions Chest X-Ray 09/08/16 0000 Signed Impressions: Service Date/Time: Thursday, September 08, 2016 09:56 - CONCLUSION: No focal or acute pulmonary infiltrates. Arnol Moon MD Brain MRI 09/07/16 0000 Signed Impressions: Service Date/Time: Wednesday, September 07, 2016 13:54 - CONCLUSION: 1. Cortical atrophy without acute intracranial abnormality. 2. Limited evaluation on contrasted sequences due to patient motion. 3. Minimal nonspecific white matter changes likely chronic ischemic small vessel vasculopathy. Jacobo Petersen MD Head CT 09/06/16 0000 Signed Impressions: Service Date/Time: Tuesday, September 06, 2016 16:11 - CONCLUSION: Unremarkable study. Mihaela Iraheta MD Objective Remarks Drips: Levophed 8 mcg/m Diprivan 20 mics. GENERAL: Elderly female who is orotracheally intubated and sedated SKIN: Warm and dry. HEAD: Atraumatic. Normocephalic. EYES: Pupils equal and round. No scleral icterus. ENT: No nasal bleeding or discharge. Mucous membranes pink and moist. NECK: Trachea midline. No JVD. CARDIOVASCULAR: Regular rate and rhythm. No murmurs rubs or gallops. RESPIRATORY: No accessory muscle use. Clear to auscultation. Breath sounds equal bilaterally. 7.[address] GASTROINTESTINAL: Abdomen soft, non-tender, nondistended. Tube feeds running at 20 mill liters per hour. MUSCULOSKELETAL: Extremities without clubbing, cyanosis, or edema. No obvious deformities. NEUROLOGICAL: Sedated and intubated. A/P Assessment and Plan 56-year-old female with: Plan: Neuro: Status epilepticus Dementia Prior stroke Continue anticonvulsants per neurology: Fosphenytoin 200 mg PE IV every 12 hours Phenobarbital 90 mg IV every 12 hours Ativan prn seizure. Head CT negative for bleed. MRI brain: Cortical atrophy without acute intracranial abnormality. Limited evaluation on contrasted sequences due to patient motion. Minimal nonspecific white matter changes likely chronic ischemic small vessel vasculopathy. EEG : No focal abnormalities, no seizure activity. Neurology, Dr. Lee following. - On Diprivan infusion for sedation. Daily sedation vacation. -Precedex drip to facilitate with weaning trials. Cardiovascular: Hypotension ?secondary to sedation, phenobarbital Hyperlipidemia Wean off Levophed this morning monitor HR and BP keep MAP>65mmHg Place on NS@75ml/hr, given 1.5L NS boluses yesterday For 2D echo Pulmonary: Continue with vent support keep sat >92% Bronchodilators, ICU vent bundle, CPAP trials as lew CXR 09/08: No focal infiltrates. GI/liver: On Jevity tube feeds @60ml/hr FEN/Renal: Chronic hyponatremia , improving. Monitor renal function, I/O's, electrolytes replacement per protocol. Will need K, phos replacement today ID: Gram positive bacteremia ? port infection Continue with abx per ID ( Ancef)monitor for signs of infections ( Fever, WBC) Surgery eval for port removal. Discussed with ID- Dr. Mariama Harvey Port was placed approx 4 yrs ago at [facility]. 09/09 BC: NGTD 09/08 BC: GPC, Staph Aureus 1227 Sputum: Staph Aureus 09/08 Urine cx: No growth Endocrine: Place on SSI for glycemic control Heme: Anemia Hx Throat Ca s/p chemo, XRT 3-4 yrs ago Monitor CBC, will transfuse 1u PRBC for Hgb 6.9 this morning. Prophylaxis: Pepcid/SCDs., hold Lovenox Follow up Doppler US RUE. ACCESS: R chest port. Surgery eval for port removal. CCT 30 minutes exclusive of separately billable procedures. Reggie Antonio MD Sep 10, 2016 10:19
[2016-09-10] MEDS: SODIUM CHLOR 0.9% 1000 ML INJ 1,000 ML IV SCH (11:00)
--- NOTE | 2016-09-10 11:15 | HHI.IDPN ---
Subjective Subjective Remarks Ms. Ochoa is a 56 y/o CF with PMHX of unknown type of throat cancer s/p chemotherapy and radiation therapy 3 yrs back. Patient has not received any chemo (using right chest wall port or radiation for last 3 yrs and upon follow up at [facility] is reportedly free of any disease per Juan Ochoa. He reports the port has been used at SNF and at hospitals when she is admitted. He also reports patient has been on some antibiotics and MAR from [facility] reflects she was on Rocephin. 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 ID following for MSSA bacteremia likely port related Overnight events reviewed. Fevers overnight Tmax 102 F. No rash No diarrhea Doppler being performed in room ECHO in room Antibiotics Ancef IV Lines Port site with no e/o infection. Past Medical History reviewed Allergies: Coded Allergies: No Known Allergies (Verified , 09/06/16) Objective . Vital Signs Date Time Temp Pulse Resp B/P Pulse Ox O2 Delivery O2 Flow Rate FiO2 09/10/16 10:00 88 09/10/16 08:06 100 30 09/10/16 08:00 30 09/10/16 08:00 95 09/10/16 06:00 76 09/10/16 04:21 100 30 09/10/16 04:00 82 09/10/16 04:00 98.5 82 18 94/57 100 09/10/16 04:00 30 09/10/16 02:00 90 09/10/16 01:23 100 30 09/10/16 00:00 97 09/10/16 00:00 102.0 97 21 85/54 96 09/10/16 00:00 30 09/09/16 22:09 100 30 09/09/16 22:00 92 09/09/16 20:00 30 09/09/16 20:00 92 09/09/16 20:00 100.0 90 18 94/55 100 09/09/16 19:39 100 30 09/09/16 18:00 93 09/09/16 16:16 100 30 09/09/16 16:00 30 09/09/16 16:00 98.8 91 22 91/57 98 09/09/16 16:00 89 09/09/16 14:00 91 09/09/16 12:02 92 30 09/09/16 12:00 30 09/09/16 12:00 104 09/09/16 12:00 99.9 98 21 100/55 100 09/09/16 09/09/16 09/10/16 15:00 23:00 07:00 Intake Total 2317 ml 1470 ml 1022 ml Output Total 700 ml 350 ml 350 ml Balance 1617 ml 1120 ml 672 ml IV Total 1916 ml 740 ml 371 ml Tube Feeding 401 ml 530 ml 451 ml Other 200 ml 200 ml Output Urine Total 700 ml 350 ml 350 ml # Bowel Movements 0 0 . Laboratory Tests Test 09/09/16 09/10/16 03:14 04:50 White Blood Count 8.7 TH/MM3 8.1 TH/MM3 Red Blood Count 2.74 MIL/MM3 2.43 MIL/MM3 Hemoglobin 7.9 GM/DL 6.9 GM/DL Hematocrit 23.3 % 20.8 % Mean Corpuscular Volume 85.0 FL 85.5 FL Mean Corpuscular Hemoglobin 28.8 PG 28.4 PG Mean Corpuscular Hemoglobin 33.9 % 33.3 % Concent Red Cell Distribution Width 15.4 % 15.6 % Platelet Count 222 TH/MM3 177 TH/MM3 Mean Platelet Volume 7.7 FL 7.9 FL Neutrophils (%) (Auto) 90.2 % 87.1 % Lymphocytes (%) (Auto) 2.4 % 5.4 % Monocytes (%) (Auto) 6.6 % 7.2 % Eosinophils (%) (Auto) 0.4 % 0.1 % Basophils (%) (Auto) 0.4 % 0.2 % Neutrophils # (Auto) 7.8 TH/MM3 7.1 TH/MM3 Lymphocytes # (Auto) 0.2 TH/MM3 0.4 TH/MM3 Monocytes # (Auto) 0.6 TH/MM3 0.6 TH/MM3 Eosinophils # (Auto) 0.0 TH/MM3 0.0 TH/MM3 Basophils # (Auto) 0.0 TH/MM3 0.0 TH/MM3 CBC Comment DIFF FINAL DIFF FINAL Differential Comment Laboratory Tests Test 09/08/16 09/09/16 09/09/16 09/10/16 20:30 03:14 17:55 04:50 Potassium Level 3.4 MEQ/L 3.6 MEQ/L 3.3 MEQ/L Sodium Level 136 MEQ/L 136 MEQ/L Chloride Level 103 MEQ/L 104 MEQ/L Carbon Dioxide Level 24.2 MEQ/L 24.3 MEQ/L Anion Gap 9 MEQ/L 8 MEQ/L Blood Urea Nitrogen 7 MG/DL 11 MG/DL Creatinine 0.31 MG/DL 0.36 MG/DL Estimat Glomerular Filtration 220 ML/MIN 185 ML/MIN Rate Random Glucose 105 MG/DL 225 MG/DL Calcium Level 7.5 MG/DL 7.0 MG/DL Phosphorus Level 2.3 MG/DL 2.4 MG/DL 1.9 MG/DL Magnesium Level 2.1 MG/DL 2.1 MG/DL C-Reactive Protein 18.00 MG/DL Protein Corrected Calcium 8.1 MG/DL Total Protein 5.1 GM/DL Microbiology Date/Time Procedure Status Source Growth 09/08/16 09:50 Gram Stain - Final Complete Sputum Endotracheal 09/08/16 09:50 Sputum Culture - Final Complete Staphylococcus Aureus 09/08/16 09:50 Urine Culture - Final Complete Urine Catheterized Urine NO GROWTH IN 48 HOURS. 09/08/16 09:55 Aerobic Blood Culture - Preliminary Resulted Blood Peripheral Staph Sp Coagulase Positive 09/08/16 09:55 Anaerobic Blood Culture - Preliminary Resulted Staph Sp Coagulase Positive 09/08/16 11:26 Aerobic Blood Culture - Preliminary Resulted Blood Peripheral Staphylococcus Aureus 09/08/16 11:26 Anaerobic Blood Culture - Preliminary Resulted Staph Sp Coagulase Positive 09/09/16 17:55 Aerobic Blood Culture - Preliminary Resulted Blood Other NO GROWTH IN 1 DAY 09/09/16 17:55 Anaerobic Blood Culture - Preliminary Resulted Blood Other NO GROWTH IN 1 DAY 09/09/16 20:01 Aerobic Blood Culture Resulted Blood Peripheral Pending 09/09/16 20:01 Anaerobic Blood Culture - Final Resulted Blood Peripheral QNS - SEE AEROBE REPORT Imaging Last Impressions Chest X-Ray 09/08/16 0000 Signed Impressions: Service Date/Time: Thursday, September 08, 2016 09:56 - CONCLUSION: No focal or acute pulmonary infiltrates. Arnol Moon MD Brain MRI 09/07/16 0000 Signed Impressions: Service Date/Time: Wednesday, September 07, 2016 13:54 - CONCLUSION: 1. Cortical atrophy without acute intracranial abnormality. 2. Limited evaluation on contrasted sequences due to patient motion. 3. Minimal nonspecific white matter changes likely chronic ischemic small vessel vasculopathy. Jacobo Petersen MD Head CT 09/06/16 0000 Signed Impressions: Service Date/Time: Tuesday, September 06, 2016 16:11 - CONCLUSION: Unremarkable study. Mihaela Iraheta MD Physical Exam GENERAL: This is a well-nourished, well-developed patient, in no apparent distress. SKIN: No rashes, ecchymoses or lesions. Cool and dry. HEAD: Atraumatic. Normocephalic. No temporal or scalp tenderness. EYES: Pupils equal round and reactive. Extraocular motions intact. No scleral icterus. No injection or drainage. ENT: Intubated. NECK: Trachea midline. Supple, nontender, no meningeal signs. CARDIOVASCULAR: Regular rate and rhythm without murmurs, gallops, or rubs. RESPIRATORY: Clear to auscultation. Breath sounds equal bilaterally. No wheezes , rales, or rhonchi. GASTROINTESTINAL: Abdomen soft, non-tender, nondistended. No hepato-splenomegaly , or palpable masses. No guarding. MUSCULOSKELETAL: Extremities without clubbing, cyanosis, or edema. No joint tenderness, effusion, or edema noted. No calf tenderness. Negative Homans sign bilaterally. NEUROLOGICAL: Opens eyes spontaneously. Moves extremities. Psych: could not be assessed. Port site with no e/o infection. Assessment & Plan Remarks Sepsis present on admission. MSSA bacteremia likely port related.(Was on Rocephin prior to admission) Staph in sputum likely colonization as CXR normal. Acute metabolic encephalopathy: seizure related, infection. Port in place: likely source of infection. Persistent fevers: seizures, infection. Recs: repeat BCX 1 from periphery and 1 from port. Continue Ancef IV (started on 09/09/16 pm) Follow 2D ECHO Doppler Right UE to look for septic thrombophlebitis. Follow cultures Follow clinically. If blood cultures are persistently positive will get CT C/A/P to look for evidence of dissemination. Port needs to be removed. Johnson Albarado. I will be OOT from 09/11/16 to 09/30/2016. Other ID MDs covering for me. Coco Harvey MD Sep 10, 2016 11:15
[2016-09-10] MEDS: INSULIN NovoLIN REGULAR SUPPLEMENTAL SCALE SQ SCH ×3 (11:43→23:00)
[2016-09-10] MEDS ORDERED: CALCIUM GLUCONATE INJ 1 GM in SODIUM CHLORIDE 0.9% INJ 100 ML IV ONE (12:00)
[2016-09-10 12:23] LABS: PROTHROMBIN TIME - PATIENT 11.4 SEC (9.8-11.6)
[2016-09-10 12:36] LABS: BLOOD GAS BASE EXCESS -2.1 mmol/L (-2-2); BLOOD GAS CARBOXYHEMOGLOBIN 1.8 % (0-4); BLOOD GAS HCO3 22 mmol/L (22-26); BLOOD GAS METHEMOGLOBIN 0.7 % (0-2); BLOOD GAS O2 HGB SATURATION 97 % (90-100); BLOOD GAS OXYGEN CONTENT 12.5 Vol % (12.0-20.0); BLOOD GAS PCO2 35 mmHg (38-42); BLOOD GAS PO2 115 mmHg (61-120); BLOOD GAS TOTAL HGB 9.1 G/DL (12.0-16.0); CRITICAL VALUE NO; DRAW SITE RT RADIAL; FIO2 30 %; NUMBER OF ARTERIAL PUNCTURES 1; OXYGEN DEVICE VENTILATOR; TEMP CORR TO 98.6
[2016-09-10 12:37] LABS: STAT NO; ULNAR PULSE PRESENT
--- NOTE | 2016-09-10 12:56 | RADRPT ---
EXAM DATE/TIME: 09/10/2016 10:26 [place] COMPARISON: No previous studies available for comparison. INDICATIONS : Right upper extremity swelling. MEDICAL HISTORY : Dementia. Seizures. Cardiac arrhythmia. Psychosis. Schizophrenia. Depression. Anxiety. SURGICAL HISTORY : Tonsillectomy. Appendectomy. ENCOUNTER: Initial ACUITY: 2 day PAIN SCORE: Non-responsive LOCATION: Right arm. FINDINGS: There is spontaneous flow documented in the basilic, cephalic, axillary, and subclavian veins. Howev er, there is evidence of occlusive thrombus in the right brachial vein. This is seen from the proxima l to distal portion of the right brachial vein.. CONCLUSION: Occlusive DVT involving the right brachial vein. Arnol Moon MD on September 10, 2016 at 12:53 Board Certified Radiologist. This report was verified electronically.
[2016-09-10] MEDS ORDERED: LIDOCAINE 1%/EPINEPHrine 1:100,000 SOLN 30 ML VIAL ONE (13:51)
[2016-09-10] MEDS: PRAVASTATIN SOD 10 MG TAB PO SCH (20:15)
--- NOTE | 2016-09-10 21:00 | EC ---
Study Study Date:09/10/2016 STUDY CONCLUSIONS SUMMARY - Left ventricle: The cavity size was normal. Wall thickness was normal. Systolic function was normal. The estimated ejection fraction was in the range of 50% to 55%. Wall motion was normal; there were no regional wall motion abnormalities. - Mitral valve: Mild regurgitation. - Tricuspid valve: Mild regurgitation. - Pulmonary arteries: PA peak pressure: 37mm Hg (S). - Pericardium, extracardiac: A small pericardial effusion was identified. If LV function is below 40, please consider prescribing an ACEI or ARB or document rationale for non-use. PROCEDURE DATA STUDY STATUS: Elective. Procedure: Transthoracic echocardiography. Image quality was poor. Scanning was performed from the parasternal, apical, and subcostal acoustic windows. Study completion: The patient tolerated the procedure well. Transthoracic echocardiography. M-mode, complete 2D, complete spectral Doppler, and color Doppler. Patient status: Inpatient. CARDIAC ANATOMY LEFT VENTRICLE: The cavity size was normal. Wall thickness was normal. Systolic function was normal. The estimated ejection fraction was in the range of 50% to 55%. Wall motion was normal; there were no regional wall motion abnormalities. AORTIC VALVE: Trileaflet; normal thickness leaflets. Doppler: Transvalvular velocity was within the normal range. There was no stenosis. No regurgitation. AORTA: Aortic root: The aortic root was normal in size. MITRAL VALVE: Structurally normal valve. Doppler: Transvalvular velocity was within the normal range. There was no evidence for stenosis. Mild regurgitation. Peak gradient: 4mm Hg (D). LEFT ATRIUM: The atrium was normal in size. RIGHT VENTRICLE: The cavity size was normal. Wall thickness was normal. PULMONIC VALVE: Doppler: Transvalvular velocity was within the normal range. There was no evidence for stenosis. No regurgitation. TRICUSPID VALVE: Structurally normal valve. Doppler: Transvalvular velocity was within the normal range. Mild regurgitation. PULMONARY ARTERY: The main pulmonary artery was normal-sized. Systolic pressure was within the normal range. RIGHT ATRIUM: The atrium was normal in size. PERICARDIUM: A small pericardial effusion was identified. SYSTEMIC VEINS: Inferior vena cava: The vessel was normal in size. BASIC MEASUREMENTS ADULT NORMAL Left ventricle LV internal dimension, ED, chordal level, *29 mm 43-52 PLAX LV internal dimension, ES, chordal level, 23 mm 23-38 PLAX Fractional shortening, chordal level, PLAX *21 % >29 LV posterior wall thickness, ED 8.28 mm IVS/LVPW ratio, ED 0.94 <1.3 Ventricular septum Septal thickness, ED 7.78 mm Aortic valve Leaflet separation 18 mm 15-26 Right ventricle RV internal dimension, ED, PLAX 21.4 mm 19-38 BASIC MEASUREMENTS ADULT NORMAL Aortic valve Leaflet separation 18 mm 15-26 Aorta Root diameter, ED 29 mm 20-37 Left atrium Anterior-posterior dimension, ES 23 mm 19-40 LA/aortic root ratio 0.79 DOPPLER MEASUREMENTS ADULT NORMAL Main pulmonary artery Pressure, S *37 mm Hg =30 Mitral valve Peak E-wave velocity 101 cm/s Peak A-wave velocity 86.4 cm/s Peak gradient, D 4 mm Hg Peak E/A ratio 1.2 Tricuspid valve Regurgitant peak velocity 258 cm/s Peak RV-RA gradient, S 27 mm Hg Maximal regurgitant velocity 258 cm/s Systemic veins Estimated CVP 10 mm Hg Right ventricle RV pressure, S *37 mm Hg <30 LEGEND: Mean values are shown as u=mean value. Asterisk (*) granado values outside specified normal range. Prepared and signed by Minor Cortes [id number]
[2016-09-10 21:19] LABS: HEMATOCRIT 28.1 % (35.0-46.0)
[2016-09-10 21:20] LABS: REVIEW FLAG FINAL
--- NOTE | 2016-09-10 21:33 | MB ---
cc: MAYELIN GONZALEZ MD DATE OF CONSULTATION 09/10/16 REASON FOR CONSULTATION Bacteremia, history of Port-A-Cath placement. HISTORY OF PRESENT ILLNESS The patient is a 56-year-old female who initially presented a few days ago with a history of dementia, stroke and seizures. The seizure was recently witnessed by EMS and the patient was EVACed to [place] for further evaluation. She did receive Ativan and was admitted and has been followed by neurology. The patient also has developed spiking fevers with positive blood cultures and history of a Port-A-Cath placement. The patient had a history of cancer and was undergoing chemotherapy several years ago and had port placement approximately 4 years ago at [facility]. Given this implanted device, the fact that the patient is no longer receiving her chemotherapy and the fact that she is spiking fevers surgery consulted for removal of port. On my exam the patient is not answering questions. She is intubated, on a small dose of Levophed and I am unable to get a further history other than what is available to me through the nursing staff and in the notes. Blood cultures did confirm staph aureus and staph bacteremia with sepsis and infectious disease has been consulted following patient for this. The patient is on antibiotics currently. PAST MEDICAL HISTORY Anxiety, depression, schizophrenia, psychosis, alcohol-induced dementia, stroke, seizure disorder, throat cancer status post chemo, radiation at [facility]. PAST SURGICAL HISTORY Port placement. Appendectomy, tonsillectomy, throat biopsy. MEDICATIONS Please see EMR. SOCIAL HISTORY Per reports EtOH, otherwise, unable to obtain. FAMILY HISTORY Unable to obtain. ALLERGIES No known drug allergies. REVIEW OF SYSTEMS Unable to obtain due to current mental status. GENERAL: Unable to attain. HEENT: Unable to obtain. CARDIOVASCULAR: Unable to obtain. RESPIRATORY: Unable to obtain. : Unable to obtain. MUSCULOSKELETAL: Unable to obtain. NEUROLOGIC: Unable to obtain. PSYCH: Unable to obtain. HEME: Unable to obtain. INTEGUMENT: Unable to obtain. PHYSICAL EXAMINATION GENERAL: The patient in no acute distress. VITAL SIGNS: Temperature 99.6, pulse 93, blood pressure 99/68, respirations 19, FIO2 of 30, 100% saturation. HEENT: Moist mucous membranes. ET tube in place. NECK: Supple. Trachea midline. HEART: Regular rate and rhythm, S1-S2. RESPIRATORY: Clear to auscultation bilaterally. ABDOMEN: Soft, nontender, nondistended. MUSCULOSKELETAL: No edema or clubbing. NEUROLOGIC: The patient opens eyes, not following commands. PSYCH: Unable to assess. SKIN: No major lesions. The right chest port noted, palpable. No evidence of erythema or purulent drainage. LABORATORY AND DIAGNOSTIC DATA WBC 8.1, hemoglobin 6.9, hematocrit 20.8, platelets 177, sodium 136, potassium 3.3, BUN is 8, creatinine 0.36, glucose 225, calcium 7. PT 11.4, INR 1.0. IMAGING STUDIES Reviewed by myself. Chest x-ray negative. ASSESSMENT The patient is a 56-year-old female. Multiple medical issues including seizure, dementia. The patient currently with bacteremia and current port placement in right chest. PLAN After full radiologic clinical workup the patient noted to have a bacteremia currently on antibiotics, followed by infectious disease. The patient with foreign body device currently a port. At this point I think it is prudent to remove the port as any potential for nidus for infection. We will plan to do this at bedside under local anesthetic. This was discussed with the nursing staff. Consents will be obtained from power of assistant county attorney. Agree with antibiotics, IV fluids, close monitoring. MD LAURENCE Gooden/JONATHON /8:36 PM /9:02 PM MTDD
[2016-09-11] VITALS (14 sets, daily range): BP systolic 90–158; BP diastolic 57–75; PULSE 85–102; RESP 17–25; TEMP 99.2–99.6; O2SAT 91–100
[2016-09-11] MEDS: SODIUM CHLOR 0.9% 1000 ML INJ 1,000 ML IV SCH
[2016-09-11] MEDS: CHLORHEXIDINE GLUCONATE 2 % 1 PACK (2 CLOTHS) TOP SCH (02:51)
[2016-09-11] MEDS: INSULIN NovoLIN REGULAR SUPPLEMENTAL SCALE SQ SCH ×4 (05:00→23:00)
[2016-09-11 06:16] LABS: AUTOMATED NEUTROPHIL # 5.6 TH/MM3 (1.8-7.7); BASOPHIL % 0.2 % (0.0-2.0); EOSINOPHIL # 0.1 TH/MM3 (0-0.4); EOSINOPHIL % 1.3 % (0.0-4.0); HEMATOCRIT 24.4 % (35.0-46.0); HEMO FLAGS DIFF FINAL; LYMPHOCYTE # 0.4 TH/MM3 (1.0-4.8); MEAN CELL VOLUME 85.7 FL (80.0-100.0); MEAN CORPUSCULAR HEMOGLOBIN 29.2 PG (27.0-34.0); MEAN CORPUSCULAR HGB CONC 34.1 % (32.0-36.0); MONO % 8.5 % (0.0-8.0); PLATELET COUNT 150 TH/MM3 (150-450); RED BLOOD COUNT 2.85 MIL/MM3 (4.00-5.30); RED CELL DISTRIBUTION WIDTH 15.1 % (11.6-17.2); WHITE BLOOD COUNT 6.6 TH/MM3 (4.0-11.0)
[2016-09-11 06:40] LABS: PROTHROMBIN TIME - PATIENT 10.7 SEC (9.8-11.6)
[2016-09-11 07:06] LABS: BICARBONATE 23.7 MEQ/L (21.0-32.0); MAGNESIUM 2.1 MG/DL (1.5-2.5); POTASSIUM 3.5 MEQ/L (3.5-5.1)
--- NOTE | 2016-09-11 07:15 | MP ---
cc: ÁNGEL RITTER MD DATE OF SURGERY PREOPERATIVE DIAGNOSIS Right chest port, patient with bacteremia. POSTOPERATIVE DIAGNOSIS Right chest port, patient with bacteremia. PROCEDURE PERFORMED Removal of right chest Port-A-Cath at bedside. SURGEON Dr. Ángel Ritter ANESTHESIA 1% lidocaine with epinephrine 4 cc, Precedex POWDER EXPERT None DRAINS None COMPLICATIONS None SPECIMENS None WOUND CLASSIFICATION Clean contaminated FINDINGS No purulence noted in the port pocket. INDICATION The patient is a 56-year-old female admitted with a seizure disorder noted to be bacteremic and concerned for sepsis, history of right Port-A-Cath for chemotherapy which has been completed and port needs to be removed. DETAILS OF THE PROCEDURE The patient was seen at bedside, prepped and draped in the usual sterile fashion. Local anesthetic after a time-out stating correct patient, procedure, and surgical site was injected around the port. An 11 blade was used to incise the previous scar and skin. Further dissection was done with the Metzenbaum scissors and a hemostat down to the port. The port was identified and mobilized and brought into the wound bed. The 3-0 Vicryl U-stitch was placed around the port tract. The port was removed. The patient was noted to be in Trendelenburg position upon removal. Next, no irrigation was done to the port pocket. A single 3-0 Vicryl was placed subcuticular followed by two 4-0 nylons placed in the vertical mattress fashion. Next, sterile dressings were placed. The patient tolerated the procedure with no complication. MD LAURENCE Gooden/KENIA /8:47 PM /7:10 AM
[2016-09-11] MEDS: CHLORHEXIDINE 0.12% (ORAL KIT) 15 ML CUP MT SCH ×2 (08:00→20:00)
[2016-09-11] MEDS: MULTIVITAMIN TAB PO SCH (08:24)
[2016-09-11] MEDS: FAMOTIDINE 20 MG TAB PO SCH (08:24)
[2016-09-11] MEDS: POTASSIUM CL 40 MEQ/30 ML LIQ UDC PO/TUBE PRN (08:25)
[2016-09-11] MEDS: SODIUM CHLORIDE 0.9% FLUSH 5 ML FLUSH IVF SCH ×2 (08:26→20:25)
[2016-09-11] MEDS: FOSPHENYTOIN INJ 200 MGPE in SODIUM CHLORIDE 0.9% INJ 50 ML IV SCH ×2 (08:26→21:00)
--- NOTE | 2016-09-11 09:52 | HHI.CCPN ---
Subjective Remarks/Hospital Course This is a 56-year-old female who has a history of dementia and reported prior stroke who presents to the emergency department with reported seizures witnessed by her long-term and by EMS. Patient reportedly had 4 episodes of repetitive movements that lasted for about a minute and then subsided. Patient has a history of dementia and is unable to provide any history. [facility] gave the patient 2 mg of IM Ativan but she continued to have some repetitive movements and gaze deviation to the left. Patient received 8 mg of Ativan total in the ER however continued to have seizures. She was thought to be in status epilepticus and she was intubated by ER physician and placed on propofol as well as given 1 g of fosphenytoin IV. Dr. Lee from neurology was contacted and ordered phenobarbital and recommended versed gtt for sedation. When I evaluated the patient she was sedated, orally intubated on mechanical ventilation on a Versed drip. History was obtained by reviewing records and discussion with ER physician. Subjective: 09/07 Seen by neurology this morning and ok for versed wean and CPAP/ extubation. Right now, about to go down for MRI. 09/08 No acute events overnight. Sedated with Versed/Diprivan and intubated. T: 101.9 this morning. MRI brain: No acute intracranial abnormalities. 09/09 Patient is sedated with Diprivan and intubated. Did not tolerate CPAP trials this morning as she became tachypneic. Spiked fever with T: 102.7 at 4am. CXR from yesterday showed no acute infiltrates On Levophed 6 mics. 09/10 Patient remained sedated and intubated. On Levophed 8 mics. Tmax 102 at midnight. 09/11 Patient s/p extubation yesterday on 3L oxygen with good sats. Afebrile. s/ p right chest port removal by surgery at bedside. Off Levophed. Objective Vital Signs Date Time Temp Pulse Resp B/P Pulse Ox O2 Delivery O2 Flow Rate FiO2 09/11/16 08:28 92 Nasal Cannula 3.00 09/11/16 08:00 98 09/11/16 04:00 99.6 20 102/62 09/10/16 12:00 30 Intake and Output 09/10/16 09/10/16 09/10/16 07:59 15:59 23:59 Intake Total 1022 ml 702 ml 569 ml Output Total 350 ml 750 ml 325 ml Balance 672 ml -48 ml 244 ml Result Diagram: 09/11/16 0503 09/11/16 0503 Other Results Laboratory Tests Test 09/10/16 09/10/16 09/10/16 09/10/16 10:46 12:22 13:25 20:31 Prothrombin Time 11.4 SEC Prothromb Time International 1.0 RATIO Ratio Blood Type O NEGATIVE O NEGATIVE Antibody Screen NEGATIVE Crossmatch Leukocyte-Reduced Red Blood Cells Blood Bank Comment Blood Gas Puncture Site RT RADIAL Blood Gas Patient Temperature 98.6 Blood Gas HCO3 22 mmol/L Blood Gas Base Excess -2.1 mmol/L Blood Gas Oxygen Saturation 97 % Arterial Blood pH 7.41 Arterial Blood Partial 35 mmHg Pressure CO2 Arterial Blood Partial 115 mmHg Pressure O2 Arterial Blood Oxygen Content 12.5 Vol % Arterial Blood 1.8 % Carboxyhemoglobin Arterial Blood Methemoglobin 0.7 % Blood Gas Hemoglobin 9.1 G/DL Oxygen Delivery Device VENTILATOR Blood Gas Ventilator Setting +5/5 Blood Gas Inspired Oxygen 30 % Hemoglobin 9.6 GM/DL Hematocrit 28.1 % Phenobarbital Level 15.3 MCG/ML Test 09/11/16 05:03 White Blood Count 6.6 TH/MM3 Red Blood Count 2.85 MIL/MM3 Hemoglobin 8.3 GM/DL Hematocrit 24.4 % Mean Corpuscular Volume 85.7 FL Mean Corpuscular Hemoglobin 29.2 PG Mean Corpuscular Hemoglobin 34.1 % Concent Red Cell Distribution Width 15.1 % Platelet Count 150 TH/MM3 Mean Platelet Volume 8.8 FL Neutrophils (%) (Auto) 84.0 % Lymphocytes (%) (Auto) 6.0 % Monocytes (%) (Auto) 8.5 % Eosinophils (%) (Auto) 1.3 % Basophils (%) (Auto) 0.2 % Neutrophils # (Auto) 5.6 TH/MM3 Lymphocytes # (Auto) 0.4 TH/MM3 Monocytes # (Auto) 0.6 TH/MM3 Eosinophils # (Auto) 0.1 TH/MM3 Basophils # (Auto) 0.0 TH/MM3 CBC Comment DIFF FINAL Differential Comment Prothrombin Time 10.7 SEC Prothromb Time International 1.0 RATIO Ratio Sodium Level 136 MEQ/L Potassium Level 3.5 MEQ/L Chloride Level 103 MEQ/L Carbon Dioxide Level 23.7 MEQ/L Anion Gap 9 MEQ/L Blood Urea Nitrogen 8 MG/DL Creatinine 0.26 MG/DL Estimat Glomerular Filtration 270 ML/MIN Rate Random Glucose 78 MG/DL Calcium Level 7.5 MG/DL Phosphorus Level 1.9 MG/DL Magnesium Level 2.1 MG/DL Phenytoin (Dilantin) Level 24.8 MCG/ML Imaging Last Impressions Upper Extremity Ultrasound 09/10/16 0000 Signed Impressions: Service Date/Time: August 10:26 - CONCLUSION: Occlusive DVT involving the right brachial vein. Arnol Moon MD Chest X-Ray 09/08/16 0000 Signed Impressions: Service Date/Time: Thursday, September 08, 2016 09:56 - CONCLUSION: No focal or acute pulmonary infiltrates. Arnol Moon MD Brain MRI 09/07/16 0000 Signed Impressions: Service Date/Time: Wednesday, September 07, 2016 13:54 - CONCLUSION: 1. Cortical atrophy without acute intracranial abnormality. 2. Limited evaluation on contrasted sequences due to patient motion. 3. Minimal nonspecific white matter changes likely chronic ischemic small vessel vasculopathy. Jacobo Petersen MD Head CT 09/06/16 0000 Signed Impressions: Service Date/Time: Tuesday, September 06, 2016 16:11 - CONCLUSION: Unremarkable study. Mihaela Iraheta MD Objective Remarks GENERAL: Elderly female lying in bed in no acute resp distress SKIN: Warm and dry. HEAD: Atraumatic. Normocephalic. EYES: Pupils equal and round. No scleral icterus. ENT: No nasal bleeding or discharge. Mucous membranes pink and moist. NECK: Trachea midline. No JVD. CARDIOVASCULAR: Regular rate and rhythm. No murmurs rubs or gallops. RESPIRATORY: No accessory muscle use. Clear to auscultation. Breath sounds equal bilaterally. GASTROINTESTINAL: Abdomen soft, non-tender, nondistended. Tu MUSCULOSKELETAL: Extremities without clubbing, cyanosis, or edema. No obvious deformities. NEUROLOGICAL: Awake. A/P Assessment and Plan 56-year-old female with: Plan: Neuro: Status epilepticus Dementia Prior stroke Continue anticonvulsants per neurology: Fosphenytoin 200 mg PE IV every 12 hours Phenobarbital 90 mg IV every 12 hours Ativan prn seizure. Head CT negative for bleed. MRI brain: Cortical atrophy without acute intracranial abnormality. Limited evaluation on contrasted sequences due to patient motion. Minimal nonspecific white matter changes likely chronic ischemic small vessel vasculopathy. EEG : No focal abnormalities, no seizure activity. Neurology, Dr. Lee following. Cardiovascular: Hyperlipidemia Off Levophed this morning monitor HR and BP keep MAP>65mmHg Echo showed EF 50-55%, no RWMA Pulmonary: Continue with vent support keep sat >92% Bronchodilators, CXR 09/08: No focal infiltrates. GI/liver: On PO heart healthy deit FEN/Renal: Chronic hyponatremia , improving. Monitor renal function, I/O's, electrolytes replacement per protocol. d/c IVF and diurese with Bumex 1mg x1 ID: Gram positive bacteremia ? port infection Continue with abx per ID ( Ancef)monitor for signs of infections ( Fever, WBC) s/p port removal by surgery on 09/10 09/09 BC: NGTD 09/08 BC: coag positive staph, Staph Aureus 1227 Sputum: Staph Aureus 09/08 Urine cx: No growth Endocrine: on SSI for glycemic control Heme: Anemia Hx Throat Ca s/p chemo, XRT 3-4 yrs ago Monitor CBC,s/p transfusion 1u PRBC on 09/10 Prophylaxis: Pepcid/SCDs., Place on Lovenox 50mg BID ( DVT right brachial vein) Doppler US RUE: DVT right brachial vein ACCESS:Peripheral IV's Level 3 Reggie Antonio MD Sep 11, 2016 09:52
[2016-09-11] MEDS ORDERED: BUMETANIDE INJ 1 MG/4 ML VIAL IV PUSH ONE (10:00)
[2016-09-11] MEDS: ENOXAPARIN SODIUM 60 MG/0.6 ML SYRINGE SQ SCH ×2 (12:34→20:24)
--- NOTE | 2016-09-11 12:37 | HHI.PR ---
Subjective Subjective Notes Resting in bed Receiving breathing treatment Non verbal during my visit Objective Vitals/I&O Vital Signs Date Time Temp Pulse Resp B/P Pulse Ox O2 Delivery O2 Flow Rate FiO2 09/11/16 10:00 90 09/11/16 08:28 92 Nasal Cannula 3.00 09/11/16 04:00 99.6 20 102/62 09/10/16 12:00 30 Labs Laboratory Tests Test 09/10/16 09/10/16 09/11/16 13:25 20:31 05:03 Blood Type O NEGATIVE Hemoglobin 9.6 8.3 Hematocrit 28.1 24.4 Phenobarbital Level 15.3 White Blood Count 6.6 Red Blood Count 2.85 Mean Corpuscular Volume 85.7 Mean Corpuscular Hemoglobin 29.2 Mean Corpuscular Hemoglobin 34.1 Concent Red Cell Distribution Width 15.1 Platelet Count 150 Mean Platelet Volume 8.8 Neutrophils (%) (Auto) 84.0 Lymphocytes (%) (Auto) 6.0 Monocytes (%) (Auto) 8.5 Eosinophils (%) (Auto) 1.3 Basophils (%) (Auto) 0.2 Neutrophils # (Auto) 5.6 Lymphocytes # (Auto) 0.4 Monocytes # (Auto) 0.6 Eosinophils # (Auto) 0.1 Basophils # (Auto) 0.0 CBC Comment DIFF FINAL Differential Comment Prothrombin Time 10.7 Prothromb Time International 1.0 Ratio Sodium Level 136 Potassium Level 3.5 Chloride Level 103 Carbon Dioxide Level 23.7 Anion Gap 9 Blood Urea Nitrogen 8 Creatinine 0.26 Estimat Glomerular Filtration 270 Rate Random Glucose 78 Calcium Level 7.5 Phosphorus Level 1.9 Magnesium Level 2.1 Phenytoin (Dilantin) Level 24.8 Date/Time Procedure Status Source Growth 09/09/16 20:01 Aerobic Blood Culture - Preliminary Resulted Blood Peripheral Gram Positive Cocci 09/09/16 20:01 Anaerobic Blood Culture - Final Resulted Blood Peripheral QNS - SEE AEROBE REPORT 09/08/16 11:26 Aerobic Blood Culture - Final Complete Blood Peripheral Staphylococcus Aureus 09/08/16 11:26 Anaerobic Blood Culture - Final Complete Staphylococcus Aureus 09/08/16 09:50 Urine Culture - Final Complete Urine Catheterized Urine NO GROWTH IN 48 HOURS. 09/08/16 09:50 Gram Stain - Final Complete Sputum Endotracheal 09/08/16 09:50 Sputum Culture - Final Complete Staphylococcus Aureus Cardiovascular: Regular Lungs: Clear Abdomen: Non-distended, Non-tender Narrative Exam RIGHT chest with dressing s/p port removal---- dressing c/d/i A/P Assessment and Plan 56 year old female s/p port removal -Okay to change dry dressing PRN -No acute GS needs at this time remain -GS will sign off; please call with questions Attending Statement pt seen at bedside s/p port removal wound c/d/i will s/o Attestation The exam, history, and the medical decision-making described in the above note were completed with the assistance of the mid-level provider. I reviewed and agree with the findings presented. I attest that I had a [id number] encounter with the patient on the same day, and personally performed and documented my assessment and findings in the medical record. Montse López Sep 11, 2016 12:37 Ángel Ritter MD Sep 22, 2016 22:56
[2016-09-11] MEDS: PRAVASTATIN SOD 10 MG TAB PO SCH (20:25)
[2016-09-12] VITALS (10 sets, daily range): BP systolic 102–125; BP diastolic 56–74; PULSE 77–90; RESP 20–28; TEMP 98–99.4; O2SAT 95–100
[2016-09-12] MEDS: CHLORHEXIDINE GLUCONATE 2 % 1 PACK (2 CLOTHS) TOP SCH (03:45)
[2016-09-12] MEDS: INSULIN NovoLIN REGULAR SUPPLEMENTAL SCALE SQ SCH ×4 (05:00→22:24)
[2016-09-12 05:29] LABS: AUTOMATED NEUTROPHIL # 3.1 TH/MM3 (1.8-7.7); BASOPHIL % 0.5 % (0.0-2.0); EOSINOPHIL # 0.1 TH/MM3 (0-0.4); EOSINOPHIL % 1.7 % (0.0-4.0); HEMATOCRIT 25.5 % (35.0-46.0); HEMO FLAGS DIFF FINAL; LYMPH % 13.6 % (9.0-44.0); LYMPHOCYTE # 0.6 TH/MM3 (1.0-4.8); MEAN CELL VOLUME 84.4 FL (80.0-100.0); MEAN CORPUSCULAR HEMOGLOBIN 28.7 PG (27.0-34.0); MONO % 14.7 % (0.0-8.0); NEUT % 69.5 % (16.0-70.0); PLATELET COUNT 159 TH/MM3 (150-450); RED BLOOD COUNT 3.02 MIL/MM3 (4.00-5.30); RED CELL DISTRIBUTION WIDTH 15.4 % (11.6-17.2); WHITE BLOOD COUNT 4.5 TH/MM3 (4.0-11.0)
[2016-09-12 05:46] LABS: POTASSIUM 2.8 MEQ/L (3.5-5.1)
[2016-09-12] MEDS: CHLORHEXIDINE 0.12% (ORAL KIT) 15 ML CUP MT SCH (08:00)
[2016-09-12] MEDS: POTASSIUM CL 40 MEQ/30 ML LIQ UDC PO/TUBE PRN (09:11)
[2016-09-12] MEDS: MULTIVITAMIN TAB PO SCH (09:11)
[2016-09-12] MEDS: FAMOTIDINE 20 MG TAB PO SCH (09:11)
[2016-09-12] MEDS: SODIUM CHLORIDE 0.9% FLUSH 5 ML FLUSH IVF SCH ×2 (09:12→20:59)
--- NOTE | 2016-09-12 09:15 | HHI.CCPN ---
Subjective Remarks/Hospital Course This is a 56-year-old female who has a history of dementia and reported prior stroke who presents to the emergency department with reported seizures witnessed by her long term and by EMS. Patient reportedly had 4 episodes of repetitive movements that lasted for about a minute and then subsided. Patient has a history of dementia and is unable to provide any history. [facility] gave the patient 2 mg of IM Ativan but she continued to have some repetitive movements and gaze deviation to the left. Patient received 8 mg of Ativan total in the ER however continued to have seizures. She was thought to be in status epilepticus and she was intubated by ER physician and placed on propofol as well as given 1 g of fosphenytoin IV. Dr. Lee from neurology was contacted and ordered phenobarbital and recommended versed gtt for sedation. When I evaluated the patient she was sedated, orally intubated on mechanical ventilation on a Versed drip. History was obtained by reviewing records and discussion with ER physician. Subjective: 09/07 Seen by neurology this morning and ok for versed wean and CPAP/ extubation. Right now, about to go down for MRI. 09/08 No acute events overnight. Sedated with Versed/Diprivan and intubated. T: 101.9 this morning. MRI brain: No acute intracranial abnormalities. 09/09 Patient is sedated with Diprivan and intubated. Did not tolerate CPAP trials this morning as she became tachypneic. Spiked fever with T: 102.7 at 4am. CXR from yesterday showed no acute infiltrates On Levophed 6 mics. 09/10 Patient remained sedated and intubated. On Levophed 8 mics. Tmax 102 at midnight. 09/11 Patient s/p extubation yesterday on 3L oxygen with good sats. Afebrile. s/ p right chest port removal by surgery at bedside. Off Levophed. 09/12 No acute events overnight. On 50% VM with good sats. Afebrile. Objective Vital Signs Date Time Temp Pulse Resp B/P Pulse Ox O2 Delivery O2 Flow Rate FiO2 09/12/16 06:00 86 09/12/16 04:00 98.7 20 123/59 100 09/11/16 21:14 Venturi Mask 50 09/11/16 08:28 3.00 Intake and Output 1209/11/16 09/12/16 08:00 16:00 00:00 Intake Total 691 ml 747 ml 509 ml Output Total 450 ml 3600 ml 350 ml Balance 241 ml -2853 ml 159 ml Result Diagram: 09/12/16 0416 09/12/16 0416 Other Results Laboratory Tests Test 09/12/16 04:16 White Blood Count 4.5 TH/MM3 Red Blood Count 3.02 MIL/MM3 Hemoglobin 8.7 GM/DL Hematocrit 25.5 % Mean Corpuscular Volume 84.4 FL Mean Corpuscular Hemoglobin 28.7 PG Mean Corpuscular Hemoglobin 34.0 % Concent Red Cell Distribution Width 15.4 % Platelet Count 159 TH/MM3 Mean Platelet Volume 8.9 FL Neutrophils (%) (Auto) 69.5 % Lymphocytes (%) (Auto) 13.6 % Monocytes (%) (Auto) 14.7 % Eosinophils (%) (Auto) 1.7 % Basophils (%) (Auto) 0.5 % Neutrophils # (Auto) 3.1 TH/MM3 Lymphocytes # (Auto) 0.6 TH/MM3 Monocytes # (Auto) 0.7 TH/MM3 Eosinophils # (Auto) 0.1 TH/MM3 Basophils # (Auto) 0.0 TH/MM3 CBC Comment DIFF FINAL Differential Comment Sodium Level 139 MEQ/L Potassium Level 2.8 MEQ/L Chloride Level 101 MEQ/L Carbon Dioxide Level 26.0 MEQ/L Anion Gap 12 MEQ/L Blood Urea Nitrogen 7 MG/DL Creatinine 0.28 MG/DL Estimat Glomerular Filtration 247 ML/MIN Rate Random Glucose 69 MG/DL Calcium Level 7.8 MG/DL Phosphorus Level 2.1 MG/DL Magnesium Level 2.0 MG/DL Phenytoin (Dilantin) Level 21.1 MCG/ML Imaging Last Impressions Upper Extremity Ultrasound 09/10/16 0000 Signed Impressions: Service Date/Time: August 10:26 - CONCLUSION: Occlusive DVT involving the right brachial vein. Arnol Moon MD Chest X-Ray 09/08/16 0000 Signed Impressions: Service Date/Time: Thursday, September 08, 2016 09:56 - CONCLUSION: No focal or acute pulmonary infiltrates. Arnol Moon MD Brain MRI 09/07/16 0000 Signed Impressions: Service Date/Time: Wednesday, September 07, 2016 13:54 - CONCLUSION: 1. Cortical atrophy without acute intracranial abnormality. 2. Limited evaluation on contrasted sequences due to patient motion. 3. Minimal nonspecific white matter changes likely chronic ischemic small vessel vasculopathy. Jacobo Petersen MD Head CT 09/06/16 0000 Signed Impressions: Service Date/Time: Tuesday, September 06, 2016 16:11 - CONCLUSION: Unremarkable study. Mihaela Iraheta MD Objective Remarks GENERAL: Elderly female lying in bed in no acute resp distress SKIN: Warm and dry. HEAD: Atraumatic. Normocephalic. EYES: Pupils equal and round. No scleral icterus. ENT: No nasal bleeding or discharge. Mucous membranes pink and moist. NECK: Trachea midline. No JVD. CARDIOVASCULAR: Regular rate and rhythm. No murmurs rubs or gallops. RESPIRATORY: No accessory muscle use. Clear to auscultation. Breath sounds equal bilaterally. GASTROINTESTINAL: Abdomen soft, non-tender, nondistended. Tu MUSCULOSKELETAL: Extremities without clubbing, cyanosis, or edema. No obvious deformities. NEUROLOGICAL: Awake. A/P Assessment and Plan 56-year-old female with: Plan: Neuro: Status epilepticus Dementia Prior stroke Continue anticonvulsants per neurology: Fosphenytoin 200 mg PE IV every 12 hours Phenobarbital 90 mg Q12 hours Ativan prn seizure. Head CT negative for bleed. MRI brain: Cortical atrophy without acute intracranial abnormality. Limited evaluation on contrasted sequences due to patient motion. Minimal nonspecific white matter changes likely chronic ischemic small vessel vasculopathy. EEG : No focal abnormalities, no seizure activity. Neurology, Dr. Lee following. Cardiovascular: Hyperlipidemia Monitor HR and BP keep MAP>65mmHg Echo showed EF 50-55%, no RWMA Pulmonary: Wean down oxygen as lew keep sat >92% Bronchodilators, CXR 09/08: No focal infiltrates. GI/liver: On PO heart healthy deit FEN/Renal: Chronic hyponatremia , improving. Monitor renal function, I/O's, electrolytes replacement per protocol. Will need K, Phos replacement today ID: Gram positive bacteremia ? port infection Continue with abx per ID ( Ancef)monitor for signs of infections ( Fever, WBC) s/p port removal by surgery on 09/10 09/11 BC: NGTD 09/09 BC: GPC 2/4 bottles 09/08 BC: coag positive staph, Staph Aureus 1227 Sputum: Staph Aureus 09/08 Urine cx: No growth Endocrine: on SSI for glycemic control Heme: Anemia Hx Throat Ca s/p chemo, XRT 3-4 yrs ago Monitor CBC,s/p transfusion 1u PRBC on 09/10 Prophylaxis: Pepcid/SCDs., On Lovenox 50mg BID ( DVT right brachial vein) Doppler US RUE: DVT right brachial vein Will sign off and transfer care to [facility] ACCESS:Peripheral IV's Level 3 Reggie Antonio MD Sep 12, 2016 09:15
[2016-09-12] MEDS: ENOXAPARIN SODIUM 60 MG/0.6 ML SYRINGE SQ SCH ×2 (09:16→20:55)
[2016-09-12 18:53] LABS: POTASSIUM 3.6 MEQ/L (3.5-5.1)
[2016-09-12] MEDS: PRAVASTATIN SOD 10 MG TAB PO SCH (20:55)
[2016-09-12] MEDS: PHENYTOIN INJ 100 MG/2 ML VIAL IV SCH (20:57)
--- NOTE | 2016-09-12 21:10 | MB ---
cc: CHERISE BRISENO MD DATE OF CONSULTATION 09/12/16 REASON FOR CONSULTATION Control of seizures. HISTORY OF PRESENT ILLNESS A 56-year-old female who has history of dementia, history of stroke and seizures for whom neurology is reconsulted for management of seizure. The patient has been seen by Dr. Lee of neurology 09/07/16. The patient was witnessed to have a seizure by her usp transferred by EMS per the patient. The patient was started on Dilantin and phenobarbital. On 09/11 the patient was extubated and no reported seizures since admission. However, there was a supratherapeutic level of Dilantin noted. REVIEW OF SYSTEMS 12 point review of systems is negative except for what is stated in the HPI. PAST MEDICAL HISTORY 1. Anxiety, 2. Depression, 3. Dementia (alcohol-induced), 4. Schizophrenia 5. Seizures. PAST HISTORY 1. Appendectomy 2. Tonsillectomy. SOCIAL HISTORY Positive for alcohol use, one pack a day of cigarettes and no recreational drug abuse. ALLERGIES NO KNOWN DRUG ALLERGIES FAMILY HISTORY Unable to obtain. IMAGING STUDIES Head CT scan without contrast was unremarkable. Brain MRI without contrast revealed cortical atrophy without acute intracranial abnormality with limited evaluation noncontrast secondary to patient motion with minimal nonspecific white matter changes likely chronic ischemic small vessel encephalopathy. LABORATORY DATA Hemoglobin 8.7, hematocrit 25.2, white blood cells 4.5. Phenobarbital level on 09/10 was within normal 15.3. Phenytoin level on 09/12/2016 was elevated at 21.1, potassium initially was low at 2.8, corrected and now it is 3.6. Calcium was low at 7. Corrected to 7.8. DIAGNOSTIC IMPRESSION 1. Seizure disorder breakthrough seizures 2. dementia/alcohol abuse. PLAN 1. Neuro checks q. one hourly. 2. Increase Dilantin dose from 200 mg twice daily to 100 mg three times daily. The morning dose today was withheld. We will start 100 mg tonight and start the 100 mg three times daily starting from tomorrow 09/13/16. 3. Dilantin level next a.m. 4. Continue phenobarbital at 90 mg twice daily. 5. Seizure precautions, 6. DVT prophylaxis 7. GI prophylaxis 8. PT, OT recommendations are appreciated. Thank you for the opportunity to participate in the care of your patient,. MD SHARON Hager /7:52 PM /8:57 PM [facility]ON[facility]
[2016-09-13] VITALS (14 sets, daily range): BP systolic 108–163; BP diastolic 55–92; PULSE 69–91; RESP 20–28; TEMP 97.8–99; O2SAT 87–100
[2016-09-13] MEDS: CHLORHEXIDINE GLUCONATE 2 % 1 PACK (2 CLOTHS) TOP SCH (04:00)
[2016-09-13] MEDS: INSULIN NovoLIN REGULAR SUPPLEMENTAL SCALE SQ SCH ×4 (05:00→22:21)
[2016-09-13] MEDS: PHENYTOIN INJ 100 MG/2 ML VIAL IV SCH ×2 (06:00→13:46)
[2016-09-13] MEDS: CHLORHEXIDINE 0.12% (ORAL KIT) 15 ML CUP MT SCH ×2 (08:00→20:00)
[2016-09-13] MEDS: FAMOTIDINE 20 MG TAB PO SCH (08:04)
[2016-09-13] MEDS: MULTIVITAMIN TAB PO SCH (08:04)
[2016-09-13] MEDS: SODIUM CHLORIDE 0.9% FLUSH 5 ML FLUSH IVF SCH ×2 (08:05→21:00)
[2016-09-13] MEDS: ENOXAPARIN SODIUM 60 MG/0.6 ML SYRINGE SQ SCH ×2 (09:14→21:12)
--- NOTE | 2016-09-13 16:06 | HHI.PR ---
Subjective Remarks as per RN patient confused denies cp/sob no further convulsions awake afebrile Objective Vitals Vital Signs Date Time Temp Pulse Resp B/P Pulse Ox O2 Delivery O2 Flow Rate FiO2 09/13/16 14:00 77 09/13/16 12:00 98.1 76 22 110/55 97 09/13/16 12:00 79 09/13/16 10:00 76 09/13/16 09:05 97 Nasal Cannula 2.00 09/13/16 08:00 98.3 77 22 108/55 97 09/13/16 08:00 77 09/13/16 06:00 69 09/13/16 04:00 98.4 78 25 123/62 97 09/13/16 04:00 78 09/13/16 02:00 79 09/13/16 00:15 96 Nasal Cannula 2.00 09/13/16 00:00 91 09/13/16 00:00 99.0 91 28 128/92 87 09/12/16 22:00 77 09/12/16 20:00 80 09/12/16 20:00 99.4 80 28 125/74 97 I/O 09/12/16 09/12/16 09/12/16 09/13/16 09/13/16 09/13/16 07:00 15:00 23:00 07:00 15:00 23:00 Intake Total 461 ml 820 ml 846 ml 1147 ml 1255 ml Output Total 375 ml 650 ml 1000 ml 1150 ml 1200 ml Balance 86 ml 170 ml -154 ml -3 ml 55 ml Intake Oral 440 ml 720 ml 960 ml 1080 ml IV Total 461 ml 380 ml 126 ml 187 ml 175 ml Output Urine Total 375 ml 650 ml 1000 ml 1150 ml 1200 ml # Bowel Movements 0 1 1 Result Diagram: 09/12/16 0416 09/12/16 1756 Imaging Last Impressions Upper Extremity Ultrasound 09/10/16 0000 Signed Impressions: Service Date/Time: August 10:26 - CONCLUSION: Occlusive DVT involving the right brachial vein. Arnol Moon MD Chest X-Ray 09/08/16 0000 Signed Impressions: Service Date/Time: Thursday, September 08, 2016 09:56 - CONCLUSION: No focal or acute pulmonary infiltrates. Arnol Moon MD Brain MRI 09/07/16 0000 Signed Impressions: Service Date/Time: Wednesday, September 07, 2016 13:54 - CONCLUSION: 1. Cortical atrophy without acute intracranial abnormality. 2. Limited evaluation on contrasted sequences due to patient motion. 3. Minimal nonspecific white matter changes likely chronic ischemic small vessel vasculopathy. Jacobo Petersen MD Head CT 09/06/16 0000 Signed Impressions: Service Date/Time: Tuesday, September 06, 2016 16:11 - CONCLUSION: Unremarkable study. Mihaela Iraheta MD Objective Remarks GENERAL: Elderly female lying in bed in no acute resp distress SKIN: Warm and dry. HEAD: Atraumatic. Normocephalic. EYES: Pupils equal and round. No scleral icterus. ENT: No nasal bleeding or discharge. Mucous membranes pink and moist. NECK: Trachea midline. No JVD. CARDIOVASCULAR: Regular rate and rhythm. No murmurs rubs or gallops. RESPIRATORY: No accessory muscle use. Clear to auscultation. Breath sounds equal bilaterally. GASTROINTESTINAL: Abdomen soft, non-tender, nondistended. Tu MUSCULOSKELETAL: Extremities without clubbing, cyanosis, or edema. No obvious deformities. NEUROLOGICAL: Awake. Medications and IVs Current Medications Medications (Trade) Dose Ordered Sig/Cristofer Route Start Time Stop Time Status Last Admin (NS Flush) 2 ml UNSCH PRN IVF 09/06/16 19:00 (NS Flush) 2 ml BID IVF 09/06/16 21:00 09/13/16 08:05 (Tylenol) 650 mg Q6H PRN PO 09/06/16 19:00 09/10/16 00:10 (Peridex 0.12% Liq) 15 ml BID@08,20 MT 09/06/16 20:00 09/10/16 09:16 (Pepcid) 20 mg DAILY PO 09/07/16 09:00 09/13/16 08:04 Miscellaneous Information 1 Q361D XX 09/06/16 19:00 (Chlorhexidine 2% Cloth) Taper DAILY@04 TOP 09/07/16 04:00 09/03/17 03:59 09/11/16 02:51 Chlorhexidine Gluconate 3 pack 3 pack UNSCH PRN [facility] 09/06/16 19:00 (Levophed-Dextrose Drip) 250 ml @ 0 mls/hr TITRATE IV 09/06/16 23:15 09/10/16 09:15 Terbutaline Sulfate 1 mg 1 mg UNSCH PRN SQ 09/06/16 23:15 Potassium Chloride 100 ml @ 50 mls/hr Q2H PRN IV 09/07/16 10:45 09/08/16 14:00 (KCl 20 Meq Premix Inj) 100 ml @ 50 mls/hr Q2H PRN IV 09/07/16 10:45 09/12/16 06:14 Potassium Chloride 40 meq 40 meq UNSCH PRN PO/TUBE 09/07/16 10:45 09/12/16 09:11 Potassium Chloride 100 ml @ 25 mls/hr UNSCH PRN IV 09/07/16 10:45 Potassium Chloride 100 ml @ 50 mls/hr Q2H PRN IV 09/07/16 10:45 (Magnesium Sulfate Inj/NS Inj) 100 ml @ 50 mls/hr UNSCH PRN IV 09/07/16 10:45 Magnesium Oxide 800 mg 800 mg UNSCH PRN PO 09/07/16 10:45 (Magnesium Sulfate Inj/NS Inj) 100 ml @ 50 mls/hr UNSCH PRN IV 09/07/16 10:45 Potassium Phosphate 2000 mg 2,000 mg Q4H PRN PO 09/07/16 10:45 09/10/16 06:08 (Sodium Phosphate Inj/NS 250 ml Inj) 250 ml @ 42 mls/hr UNSCH PRN IV 09/07/16 10:45 09/08/16 17:41 (KCl 40 Meq/30 ml Liq) 40 meq UNSCH PRN PO/TUBE 09/07/16 10:45 Potassium Phosphate 2000 mg 2,000 mg UNSCH PRN PO/TUBE 09/07/16 10:45 (Potassium Phosphate Inj/NS 250 ml Inj) 260 ml @ 42 mls/hr UNSCH PRN IV 09/07/16 10:45 09/12/16 09:11 (Ativan Inj) 1 mg Q5M PRN IV PUSH 09/07/16 11:45 09/07/16 17:00 (Aspirin Chew) 81 mg DAILY PO 09/08/16 09:00 Hold 09/10/16 09:18 (Theragran) 1 tab DAILY PO 09/08/16 09:00 09/13/16 08:04 (Pravachol) 10 mg HS PO 09/07/16 21:00 09/12/16 20:55 Phenobarbital Sodium 90 mg 90 mg Q12HR IVP 09/08/16 09:00 09/13/16 08:05 (Ancef Inj/NS Inj) 100 ml @ 200 mls/hr Q8H IV 09/09/16 18:15 09/13/16 09:14 (D50w (Vial) Inj) 25 ml UNSCH PRN IV PUSH 09/10/16 10:15 (Glucagon Inj) 1 mg UNSCH PRN OTHER 09/10/16 10:15 (NovoLIN R SUPPLEMENTAL SCALE) 1 Q6H SQ 09/10/16 11:00 09/10/16 11:43 (Lovenox Inj) 50 mg Q12H SQ 09/11/16 10:00 09/13/16 09:14 (Dilantin Inj) 100 mg Q8HR IV 09/12/16 22:00 09/13/16 13:46 Urinary Catheter: No Vascular Central Line Catheter: No A/P Problem List: (1) Status epilepticus ICD Code: G40.901 Status: Resolved Plan: Anticonvulsant as per neurology. Continue Dilantin 100 mg IV every 8 hours. Phenobarbital 90 mg every 12 hours. Ativan when necessary seizure. Head CT negative for bleed MRI showed cortical atrophy without acute intracranial abnormality. EEG negative Neurology following. (2) Seizure disorder ICD Code: G40.909 Status: Chronic Plan: As above. (3) Dementia ICD Code: F03.90 Status: Chronic Plan: Continue donepezil which was held on admission. (4) Acute respiratory failure requiring reintubation ICD Code: J96.00 Status: Resolved Plan: Patient is status post intubation mechanical ventilation. Now extubated and nasal cannula. (5) Staphylococcus aureus bacteremia ICD Code: R78.81 Status: Acute Plan: Patient growing MSSA on several blood cultures obtained. Patient had a right-sided port which has been discontinued. Consult infectious disease. The patient currently on IV cefazolin and afebrile. (6) Hypokalemia ICD Code: E87.6 Status: Resolved Plan: Hypokalemia resolved. Last potassium level II.6. Continue to replace and monitor. (7) H/O: CVA (cerebrovascular accident) ICD Code: Z86.73 Status: Chronic Plan: Continue aspirin, statin (8) Hyponatremia ICD Code: E87.1 Status: Acute Plan: Hyponatremia resolved. Continue to monitor sodium. (9) History of throat cancer ICD Code: Z85.819 Status: Acute Plan: Hx Throat Ca s/p chemo, XRT 3-4 yrs ago (10) Deep vein thrombosis (DVT) of brachial vein of right upper extremity ICD Code: I82.621 Status: Acute Plan: On Lovenox 50 mg SQ BID. Shown on RUE doppler US. Assessment and Plan DVt proph: SCD's, on Lovenox SQ GI proph: Famotidine Problem Qualifiers (1) Dementia: Andrez Hand MD Sep 13, 2016 16:06 Hyperlipidemia Monitor HR and BP keep MAP>65mmHg Echo showed EF 50-55%, no RWMA Pulmonary: Wean down oxygen as lwe keep sat >92% Bronchodilators, CXR 09/08: No focal infiltrates. GI/liver: On PO heart healthy deit FEN/Renal: Chronic hyponatremia , improving. Monitor renal function, I/O's, electrolytes replacement per protocol. Will need K, Phos replacement today ID: Gram positive bacteremia ? port infection Continue with abx per ID ( Ancef)monitor for signs of infections ( Fever, WBC) s/p port removal by surgery on 09/10 09/11 BC: NGTD 09/09 BC: GPC 2/4 bottles 09/08 BC: coag positive staph, Staph Aureus 1227 Sputum: Staph Aureus 09/08 Urine cx: No growth Endocrine: on SSI for glycemic control Heme: Anemia Hx Throat Ca s/p chemo, XRT 3-4 yrs ago Monitor CBC,s/p transfusion 1u PRBC on 09/10 Prophylaxis: Pepcid/SCDs., On Lovenox 50mg BID ( DVT right brachial vein) Doppler US RUE: DVT right brachial vein Problem Qualifiers (1) Dementia: Andrez Hand MD Sep 13, 2016 16:06
[2016-09-13 17:17] LABS: HEMATOCRIT 28.8 % (35.0-46.0); MEAN CELL VOLUME 84.1 FL (80.0-100.0); MEAN CORPUSCULAR HEMOGLOBIN 28.1 PG (27.0-34.0); MEAN CORPUSCULAR HGB CONC 33.4 % (32.0-36.0); PLATELET COUNT 226 TH/MM3 (150-450); RED BLOOD COUNT 3.42 MIL/MM3 (4.00-5.30); RED CELL DISTRIBUTION WIDTH 15.8 % (11.6-17.2); WHITE BLOOD COUNT 7.6 TH/MM3 (4.0-11.0)
[2016-09-13 17:41] LABS: BICARBONATE 25.5 MEQ/L (21.0-32.0); POTASSIUM 3.9 MEQ/L (3.5-5.1)
[2016-09-13 18:10] LABS: REVIEW FLAG FINAL
--- NOTE | 2016-09-13 19:31 | HHI.IDPN ---
Subjective Subjective Remarks ID X cover chart reviewes Ms. Ochoa is a 56 y/o CF with PMHX of unknown type of throat cancer s/p chemotherapy and radiation therapy 3 yrs back. Patient has not received any chemo (using right chest wall port or radiation for last 3 yrs and upon follow up at [facility] is reportedly free of any disease per Juan Ochoa. He reports the port has been used at SNF and at hospitals when she is admitted. He also reports patient has been on some antibiotics and MAR from [facility] reflects she was on Rocephin. 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 ID following for MSSA bacteremia likely port related Port was removed 09/10 BC from 09/01 has GPC in / bottles Overnight events reviewed. No fever since 09/10 No rash No diarrhea 2 D echo wo vegetaitons Antibiotics Ancef IV Lines Port site with no e/o infection. Past Medical History reviewed Allergies: Coded Allergies: No Known Allergies (Verified , 09/06/16) Objective . Vital Signs Date Time Temp Pulse Resp B/P Pulse Ox O2 Delivery O2 Flow Rate FiO2 09/13/16 18:00 78 09/13/16 16:00 97.8 77 20 110/55 100 09/13/16 16:00 77 09/13/16 14:00 77 09/13/16 12:00 98.1 76 22 110/55 97 09/13/16 12:00 79 09/13/16 10:00 76 09/13/16 09:05 97 Nasal Cannula 2.00 09/13/16 08:00 98.3 77 22 108/55 97 09/13/16 08:00 77 09/13/16 06:00 69 09/13/16 04:00 98.4 78 25 123/62 97 09/13/16 04:00 78 09/13/16 02:00 79 09/13/16 00:15 96 Nasal Cannula 2.00 09/13/16 00:00 91 09/13/16 00:00 99.0 91 28 128/92 87 09/12/16 22:00 77 09/12/16 20:00 80 09/12/16 20:00 99.4 80 28 125/74 97 09/12/16 09/12/16 09/13/16 14:59 22:59 06:59 Intake Total 820 ml 846 ml 1147 ml Output Total 650 ml 1000 ml 1150 ml Balance 170 ml -154 ml -3 ml Intake Oral 440 ml 720 ml 960 ml IV Total 380 ml 126 ml 187 ml Output Urine Total 650 ml 1000 ml 1150 ml # Bowel Movements 0 1 . Laboratory Tests Test 09/12/16 09/13/16 04:16 16:35 White Blood Count 4.5 TH/MM3 7.6 TH/MM3 Red Blood Count 3.02 MIL/MM3 3.42 MIL/MM3 Hemoglobin 8.7 GM/DL 9.6 GM/DL Hematocrit 25.5 % 28.8 % Mean Corpuscular Volume 84.4 FL 84.1 FL Mean Corpuscular Hemoglobin 28.7 PG 28.1 PG Mean Corpuscular Hemoglobin 34.0 % 33.4 % Concent Red Cell Distribution Width 15.4 % 15.8 % Platelet Count 159 TH/MM3 226 TH/MM3 Mean Platelet Volume 8.9 FL 9.2 FL Neutrophils (%) (Auto) 69.5 % Lymphocytes (%) (Auto) 13.6 % Monocytes (%) (Auto) 14.7 % Eosinophils (%) (Auto) 1.7 % Basophils (%) (Auto) 0.5 % Neutrophils # (Auto) 3.1 TH/MM3 Lymphocytes # (Auto) 0.6 TH/MM3 Monocytes # (Auto) 0.7 TH/MM3 Eosinophils # (Auto) 0.1 TH/MM3 Basophils # (Auto) 0.0 TH/MM3 CBC Comment DIFF FINAL Differential Comment Hematology Comments Laboratory Tests Test 09/12/16 09/12/16 09/13/16 04:16 17:56 16:35 Sodium Level 139 MEQ/L 133 MEQ/L Potassium Level 2.8 MEQ/L 3.6 MEQ/L 3.9 MEQ/L Chloride Level 101 MEQ/L 97 MEQ/L Carbon Dioxide Level 26.0 MEQ/L 25.5 MEQ/L Anion Gap 12 MEQ/L 11 MEQ/L Blood Urea Nitrogen 7 MG/DL 4 MG/DL Creatinine 0.28 MG/DL 0.20 MG/DL Estimat Glomerular Filtration 247 ML/MIN 365 ML/MIN Rate Random Glucose 69 MG/DL 76 MG/DL Calcium Level 7.8 MG/DL 7.7 MG/DL Phosphorus Level 2.1 MG/DL 3.2 MG/DL Magnesium Level 2.0 MG/DL Microbiology Date/Time Procedure Status Source Growth 09/11/16 18:05 Aerobic Blood Culture - Preliminary Resulted Blood Peripheral NO GROWTH IN 2 DAYS 09/11/16 18:05 Anaerobic Blood Culture - Preliminary Resulted Gram Positive Cocci 09/11/16 18:16 Aerobic Blood Culture - Preliminary Resulted Blood Peripheral NO GROWTH IN 2 DAYS 09/11/16 18:16 Anaerobic Blood Culture - Final Resulted Blood Peripheral QNS - SEE AEROBE REPORT Imaging Last Impressions Upper Extremity Ultrasound 09/10/16 0000 Signed Impressions: Service Date/Time: August 10:26 - CONCLUSION: Occlusive DVT involving the right brachial vein. Arnol Moon MD Chest X-Ray 09/08/16 0000 Signed Impressions: Service Date/Time: Thursday, September 08, 2016 09:56 - CONCLUSION: No focal or acute pulmonary infiltrates. Arnol Moon MD Brain MRI 09/07/16 0000 Signed Impressions: Service Date/Time: Wednesday, September 07, 2016 13:54 - CONCLUSION: 1. Cortical atrophy without acute intracranial abnormality. 2. Limited evaluation on contrasted sequences due to patient motion. 3. Minimal nonspecific white matter changes likely chronic ischemic small vessel vasculopathy. Jacobo Petersen MD Head CT 09/06/16 0000 Signed Impressions: Service Date/Time: Tuesday, September 06, 2016 16:11 - CONCLUSION: Unremarkable study. Mihaela Iraheta MD Physical Exam GENERAL: This is a well-nourished, well-developed patient, in no apparent distress. SKIN: No rashes, ecchymoses or lesions. Cool and dry. EYES: Pupils equal round and reactive. Extraocular motions intact. No scleral icterus. No injection or drainage. ENT: edentulous. Moist mucosae NECK: Trachea midline. Supple, nontender, no meningeal signs. CARDIOVASCULAR: Regular rate and rhythm without murmurs, gallops, or rubs. RESPIRATORY: Clear to auscultation. Breath sounds equal bilaterally. No wheezes , rales, or rhonchi. GASTROINTESTINAL: Abdomen soft, non-tender, nondistended. No hepato-splenomegaly , or palpable masses. No guarding. MUSCULOSKELETAL: Extremities without clubbing, cyanosis, or edema. No joint tenderness, effusion, or edema noted. RUE edema NEUROLOGICAL: Opens eyes spontaneously. Moves extremities. Awake alert. Confused. Yelling. Speech incoherent Psych: could not be assessed. Previous Port site with no e/o infection. Assessment & Plan Remarks Sepsis present on admission. MSSA bacteremia likely port related.(Was on Rocephin prior to admission) - PORT removed - Most recent BC still positive Staph in sputum likely colonization as CXR normal. Acute metabolic encephalopathy: seizure related, infection. Port in place: likely source of infection. Persistent fevers: seizures, infection. Doppler Right UE cw thrombophlebitis. Low grade coag negative bactermia, just 1 bottle - doubt clin significance Recs: Continue Ancef IV (started on 09/09/16 pm) will chk more BC I Terri Coronel MD Sep 13, 2016 19:31
[2016-09-13] MEDS: PRAVASTATIN SOD 10 MG TAB PO SCH (21:12)
[2016-09-13] MEDS: DONEPEZIL HCL 5 MG TAB PO SCH (21:12)
[2016-09-13] MEDS ORDERED: PILL SPLITTER OTHER PRN (22:15)
[2016-09-13] MEDS: PHENYTOIN SODIUM 100 MG CAP PO SCH (22:20)
[2016-09-14] VITALS (9 sets, daily range): BP systolic 104–144; BP diastolic 65–73; PULSE 66–89; RESP 11–20; TEMP 98.2–99.1; O2SAT 90–97
[2016-09-14] MEDS: CHLORHEXIDINE GLUCONATE 2 % 1 PACK (2 CLOTHS) TOP SCH (04:00)
[2016-09-14] MEDS: INSULIN NovoLIN REGULAR SUPPLEMENTAL SCALE SQ SCH ×4 (05:00→22:32)
[2016-09-14] MEDS: PHENYTOIN SODIUM 100 MG CAP PO SCH ×3 (06:28→22:30)
[2016-09-14] MEDS: CHLORHEXIDINE 0.12% (ORAL KIT) 15 ML CUP MT SCH ×2 (08:00→20:00)
[2016-09-14 08:18] LABS: BASOPHIL % 1.2 % (0.0-2.0); EOSINOPHIL # 0.1 TH/MM3 (0-0.4); EOSINOPHIL % 3.2 % (0.0-4.0); HEMATOCRIT 29.9 % (35.0-46.0); HEMO FLAGS DIFF FINAL; LYMPH % 17.7 % (9.0-44.0); LYMPHOCYTE # 0.6 TH/MM3 (1.0-4.8); MEAN CELL VOLUME 84.8 FL (80.0-100.0); MEAN CORPUSCULAR HEMOGLOBIN 28.1 PG (27.0-34.0); MEAN CORPUSCULAR HGB CONC 33.1 % (32.0-36.0); MONO % 14.6 % (0.0-8.0); NEUT % 63.3 % (16.0-70.0); PLATELET COUNT 281 TH/MM3 (150-450); RED BLOOD COUNT 3.52 MIL/MM3 (4.00-5.30); RED CELL DISTRIBUTION WIDTH 15.6 % (11.6-17.2); WHITE BLOOD COUNT 3.2 TH/MM3 (4.0-11.0)
[2016-09-14] MEDS: ENOXAPARIN SODIUM 60 MG/0.6 ML SYRINGE SQ SCH ×2 (08:45→22:30)
[2016-09-14] MEDS: SODIUM CHLORIDE 0.9% FLUSH 5 ML FLUSH IVF SCH ×2 (08:45→22:32)
[2016-09-14] MEDS: FAMOTIDINE 20 MG TAB PO SCH (08:48)
[2016-09-14] MEDS: MULTIVITAMIN TAB PO SCH (08:48)
[2016-09-14 08:54] LABS: ALKALINE PHOSPHATASE 92 U/L (45-117); ALT (GPT) 20 U/L (10-53); ANION GAP 11 MEQ/L (5-15); AST (GOT) 27 U/L (15-37); BICARBONATE 26.1 MEQ/L (21.0-32.0); BLOOD UREA NITROGEN 3 MG/DL (7-18); CHLORIDE 94 MEQ/L (98-107); GLOMERULAR FILTRATION RATE 387 ML/MIN (>89); MAGNESIUM 1.9 MG/DL (1.5-2.5); SODIUM (NA) 131 MEQ/L (136-145); TOTAL BILIRUBIN ADULT 0.3 MG/DL (0.2-1.0)
[2016-09-14 09:01] LABS: POTASSIUM 2.9 MEQ/L (3.5-5.1)
[2016-09-14] MEDS ORDERED: POTASSIUM CHLORIDE 20 MEQ CONTROLLED RELEASE TAB PO ONE (09:45)
--- NOTE | 2016-09-14 16:34 | HHI.PR ---
Subjective Remarks fu status epilepticus, DVT, hyponatremia, respiratory failure, hypokalemia Patient states feels confused denies cp/sob denies fevers/chills denies cough potasium low sodium trending down no rash no diarrhea Objective Vitals Vital Signs Date Time Temp Pulse Resp B/P Pulse Ox O2 Delivery O2 Flow Rate FiO2 09/14/16 12:57 98.8 79 18 131/71 93 09/14/16 10:38 70 09/14/16 09:22 98.5 82 18 123/71 90 09/14/16 05:21 98.3 69 17 122/67 94 09/14/16 02:00 66 09/14/16 00:00 99.1 72 11 144/65 97 09/14/16 00:00 72 09/13/16 22:00 79 09/13/16 20:00 98.1 76 25 163/72 100 09/13/16 20:00 76 09/13/16 18:00 78 I/O 09/13/16 09/13/16 09/13/16 09/14/16 09/14/16 09/14/16 07:00 15:00 23:00 07:00 15:00 23:00 Intake Total 1147 ml 1255 ml 500 ml Output Total 1150 ml 1200 ml 1900 ml 700 ml Balance -3 ml 55 ml -1400 ml -700 ml Intake Oral 960 ml 1080 ml 500 ml IV Total 187 ml 175 ml 0 ml Output Urine Total 1150 ml 1200 ml 1900 ml 700 ml # Bowel Movements 1 0 Result Diagram: 09/14/16 0753 09/14/16 0753 Imaging Last Impressions Upper Extremity Ultrasound 09/10/16 0000 Signed Impressions: Service Date/Time: August 10:26 - CONCLUSION: Occlusive DVT involving the right brachial vein. Arnol Moon MD Chest X-Ray 09/08/16 0000 Signed Impressions: Service Date/Time: Thursday, September 08, 2016 09:56 - CONCLUSION: No focal or acute pulmonary infiltrates. Arnol Moon MD Brain MRI 09/07/16 0000 Signed Impressions: Service Date/Time: Wednesday, September 07, 2016 13:54 - CONCLUSION: 1. Cortical atrophy without acute intracranial abnormality. 2. Limited evaluation on contrasted sequences due to patient motion. 3. Minimal nonspecific white matter changes likely chronic ischemic small vessel vasculopathy. Jacobo Petersen MD Head CT 09/06/16 0000 Signed Impressions: Service Date/Time: Tuesday, September 06, 2016 16:11 - CONCLUSION: Unremarkable study. Mihaela Iraheta MD Objective Remarks GENERAL: Elderly female lying in bed in no acute resp distress SKIN: Warm and dry. HEAD: Atraumatic. Normocephalic. EYES: Pupils equal and round. No scleral icterus. ENT: No nasal bleeding or discharge. Mucous membranes pink and moist. NECK: Trachea midline. No JVD. CARDIOVASCULAR: Regular rate and rhythm. No murmurs rubs or gallops. RESPIRATORY: No accessory muscle use. Clear to auscultation. Breath sounds equal bilaterally. GASTROINTESTINAL: Abdomen soft, non-tender, nondistended. Tu MUSCULOSKELETAL: Extremities without clubbing, cyanosis, or edema. No obvious deformities. NEUROLOGICAL: Awake. Medications and IVs Current Medications Medications (Trade) Dose Ordered Sig/Cristofer Route Start Time Stop Time Status Last Admin (NS Flush) 2 ml UNSCH PRN IVF 09/06/16 19:00 (NS Flush) 2 ml BID IVF 09/06/16 21:00 09/13/16 08:05 (Tylenol) 650 mg Q6H PRN PO 09/06/16 19:00 09/10/16 00:10 (Peridex 0.12% Liq) 15 ml BID@08,20 MT 09/06/16 20:00 09/10/16 09:16 (Pepcid) 20 mg DAILY PO 09/07/16 09:00 09/14/16 08:48 Miscellaneous Information 1 Q361D XX 09/06/16 19:00 (Chlorhexidine 2% Cloth) Taper DAILY@04 TOP 09/07/16 04:00 09/03/17 03:59 09/11/16 02:51 (Chlorhexidine 2% Cloth) 3 pack UNSCH PRN TOP 09/06/16 19:00 (Brethine Inj) 1 mg UNSCH PRN SQ 09/06/16 23:15 (Ativan Inj) 1 mg Q5M PRN IV PUSH 09/07/16 11:45 09/07/16 17:00 (Aspirin Chew) 81 mg DAILY PO 09/08/16 09:00 Hold 09/10/16 09:18 (Theragran) 1 tab DAILY PO 09/08/16 09:00 09/14/16 08:48 Pravastatin Sodium 10 mg 10 mg HS PO 09/07/16 21:00 09/13/16 21:12 (Ancef Inj/NS Inj) 100 ml @ 200 mls/hr Q8H IV 09/09/16 18:15 09/13/16 16:53 (D50w (Vial) Inj) 25 ml UNSCH PRN IV PUSH 09/10/16 10:15 (Glucagon Inj) 1 mg UNSCH PRN OTHER 09/10/16 10:15 (NovoLIN R SUPPLEMENTAL SCALE) 1 Q6H SQ 09/10/16 11:00 09/10/16 11:43 (Lovenox Inj) 50 mg Q12H SQ 09/11/16 10:00 09/14/16 08:45 (Aricept) 10 mg HS PO 09/13/16 21:00 09/13/16 21:12 (Dilantin) 100 mg Q8HR PO 09/13/16 22:00 09/14/16 12:46 (PHENobarbital) 90 mg BID PO 09/13/16 22:15 09/14/16 08:48 (Pill Splitter) 1 ea UNSCH PRN OTHER 09/13/16 22:15 09/13/16 23:33 Urinary Catheter: No Vascular Central Line Catheter: No A/P Problem List: (1) Status epilepticus ICD Code: G40.901 Status: Resolved (2) Seizure disorder ICD Code: G40.909 Status: Chronic (3) Dementia ICD Code: F03.90 Status: Chronic (4) Acute respiratory failure requiring reintubation ICD Code: J96.00 Status: Resolved (5) Staphylococcus aureus bacteremia ICD Code: R78.81 Status: Acute (6) Hypokalemia ICD Code: E87.6 Status: Resolved (7) H/O: CVA (cerebrovascular accident) ICD Code: Z86.73 Status: Chronic (8) Hyponatremia ICD Code: E87.1 Status: Acute (9) History of throat cancer ICD Code: Z85.819 Status: Acute Plan: Hx Throat Ca s/p chemo, XRT 3-4 yrs ago (10) Deep vein thrombosis (DVT) of brachial vein of right upper extremity ICD Code: I82.621 Status: Acute Plan: On Lovenox 50 mg SQ BID. Shown on RUE doppler US. I will start the patient on Warfarin. Lovenox bridge to Warfarin - monitor PT/INR daily. Will consult pharmacy to help with dosing. (11) Weakness generalized ICD Code: R53.1 Status: Acute Plan: Consult PT Assessment and Plan (1) Status epilepticus Plan: Anticonvulsant as per neurology. Continue Dilantin 100 mg IV every 8 hours. Phenobarbital 90 mg every 12 hours. Ativan when necessary seizure. Head CT negative for bleed MRI showed cortical atrophy without acute intracranial abnormality. EEG negative Neurology following. (2) Seizure disorder Plan: As above. (3) Dementia Plan: Continue donepezil which was held on admission. (4) Acute respiratory failure requiring reintubation Plan: Patient is status post intubation mechanical ventilation. Now extubated and nasal cannula. (5) Staphylococcus aureus bacteremia Plan: Patient growing MSSA on several blood cultures obtained. Patient had a right-sided port which has been discontinued. Appreciate ID consultation recommendations. Throughout assessment ID The patient currently on IV cefazolin and afebrile. Follow-up repeat blood cultures (6) Hypokalemia Plan: Hypokalemia resolved. Last potassium level 2.9 Continue to replace and monitor. (7) H/O: CVA (cerebrovascular accident) Plan: Continue aspirin, statin (8) Hyponatremia Plan: Sodium trending down. Now 131. The patient is euvolemic. I will start the patient on fluid restriction of 1 L. Check serum and urine osmolality and continue to monitor sodium. DVt proph: SCD's, on Lovenox SQ GI proph: Famotidine Discharge Planning Continue to monitor in the medical floor. Pending ID and neurology clearance. Pending PT eval. Problem Qualifiers (1) Dementia: (2) Deep vein thrombosis (DVT) of brachial vein of right upper extremity: Qualified Code: I82.621 - Acute deep vein thrombosis (DVT) of brachial vein of right upper extremity Andrez Hand MD Sep 14, 2016 16:34
[2016-09-14] MEDS: PRAVASTATIN SOD 10 MG TAB PO SCH (22:31)
[2016-09-14] MEDS: DONEPEZIL HCL 5 MG TAB PO SCH (22:31)
[2016-09-15] MEDS: CHLORHEXIDINE GLUCONATE 2 % 1 PACK (2 CLOTHS) TOP SCH (02:14)
[2016-09-15 04:05] VITALS: BP 118/71; PULSE 72; RESP 18; TEMP 97.6; O2SAT 95
[2016-09-15] MEDS: PHENYTOIN SODIUM 100 MG CAP PO SCH ×3 (06:03→21:06)
[2016-09-15] MEDS: INSULIN NovoLIN REGULAR SUPPLEMENTAL SCALE SQ SCH ×4 (06:07→21:00)
[2016-09-15] MEDS: CHLORHEXIDINE 0.12% (ORAL KIT) 15 ML CUP MT SCH ×2 (08:00→20:00)
[2016-09-15 08:31] VITALS: BP 118/71; PULSE 73; RESP 18; TEMP 97.1; O2SAT 95
[2016-09-15] MEDS: MULTIVITAMIN TAB PO SCH (10:42)
[2016-09-15] MEDS: FAMOTIDINE 20 MG TAB PO SCH (10:42)
[2016-09-15] MEDS: ENOXAPARIN SODIUM 60 MG/0.6 ML SYRINGE SQ SCH ×2 (10:43→21:06)
[2016-09-15] MEDS: SODIUM CHLORIDE 0.9% FLUSH 5 ML FLUSH IVF SCH ×2 (10:43→21:05)
[2016-09-15] MEDS: ACETAMINOPHEN 325 MG TAB PO PRN (11:33)
[2016-09-15 13:21] VITALS: BP 133/81; PULSE 82; RESP 18; TEMP 98.4; O2SAT 99
[2016-09-15 13:25] LABS: AUTOMATED NEUTROPHIL # 2.8 TH/MM3 (1.8-7.7); BASOPHIL % 0.6 % (0.0-2.0); EOSINOPHIL # 0.2 TH/MM3 (0-0.4); EOSINOPHIL % 3.9 % (0.0-4.0); HEMATOCRIT 32.8 % (35.0-46.0); HEMO FLAGS DIFF FINAL; LYMPH % 17.1 % (9.0-44.0); LYMPHOCYTE # 0.7 TH/MM3 (1.0-4.8); MEAN CORPUSCULAR HEMOGLOBIN 28.7 PG (27.0-34.0); MEAN CORPUSCULAR HGB CONC 33.4 % (32.0-36.0); MONO % 12.1 % (0.0-8.0); NEUT % 66.3 % (16.0-70.0); PLATELET COUNT 346 TH/MM3 (150-450); RED BLOOD COUNT 3.81 MIL/MM3 (4.00-5.30); RED CELL DISTRIBUTION WIDTH 15.8 % (11.6-17.2); WHITE BLOOD COUNT 4.3 TH/MM3 (4.0-11.0)
[2016-09-15 13:43] LABS: ALKALINE PHOSPHATASE 109 U/L (45-117); ALT (GPT) 23 U/L (10-53); ANION GAP 10 MEQ/L (5-15); AST (GOT) 33 U/L (15-37); BICARBONATE 23.3 MEQ/L (21.0-32.0); BLOOD UREA NITROGEN 3 MG/DL (7-18); CHLORIDE 97 MEQ/L (98-107); GLOMERULAR FILTRATION RATE 296 ML/MIN (>89); POTASSIUM 3.9 MEQ/L (3.5-5.1); SODIUM (NA) 130 MEQ/L (136-145); TOTAL BILIRUBIN ADULT 0.2 MG/DL (0.2-1.0)
[2016-09-15 17:19] VITALS: BP 124/72; PULSE 72; RESP 20; TEMP 97.5; O2SAT 99
[2016-09-15 20:25] VITALS: BP 105/64; PULSE 78; RESP 18; TEMP 95.6; O2SAT 97
[2016-09-15] MEDS: DONEPEZIL HCL 5 MG TAB PO SCH (21:05)
[2016-09-15] MEDS: PRAVASTATIN SOD 10 MG TAB PO SCH (21:05)
[2016-09-15 23:00] VITALS: PULSE 65
[2016-09-16] VITALS (7 sets, daily range): BP systolic 87–135; BP diastolic 53–87; PULSE 60–78; RESP 18–22; TEMP 96.1–97.8; O2SAT 97–100
[2016-09-16] MEDS: CHLORHEXIDINE GLUCONATE 2 % 1 PACK (2 CLOTHS) TOP SCH (04:00)
[2016-09-16] MEDS: PHENYTOIN SODIUM 100 MG CAP PO SCH ×3 (05:45→23:34)
[2016-09-16] MEDS: INSULIN NovoLIN REGULAR SUPPLEMENTAL SCALE SQ SCH ×4 (06:08→21:00)
[2016-09-16] MEDS: CHLORHEXIDINE 0.12% (ORAL KIT) 15 ML CUP MT SCH ×2 (08:00→20:00)
[2016-09-16] MEDS: FAMOTIDINE 20 MG TAB PO SCH (09:09)
[2016-09-16] MEDS: MULTIVITAMIN TAB PO SCH (09:09)
[2016-09-16] MEDS: SODIUM CHLORIDE 0.9% FLUSH 5 ML FLUSH IVF SCH ×2 (09:11→23:33)
[2016-09-16] MEDS: ENOXAPARIN SODIUM 60 MG/0.6 ML SYRINGE SQ SCH ×2 (11:17→23:33)
--- NOTE | 2016-09-16 14:10 | HHI.PR ---
Subjective Remarks late entry - patient seen 09/15/16 at 12:15 no further seizures blood cultures + patient agitated/coughing earlier as per report Objective Vitals Vital Signs Date Time Temp Pulse Resp B/P Pulse Ox O2 Delivery O2 Flow Rate FiO2 09/16/16 12:00 96.8 60 20 87/53 98 09/16/16 08:00 96.2 78 18 122/78 97 09/16/16 07:28 71 09/16/16 04:00 96.1 72 19 135/87 97 09/16/16 00:00 97.2 68 19 127/71 100 09/15/16 23:00 65 09/15/16 20:25 95.6 78 18 105/64 97 09/15/16 17:19 97.5 72 20 124/72 99 I/O 09/15/16 09/15/16 09/15/16 09/16/16 09/16/16 09/16/16 07:00 15:00 23:00 07:00 15:00 23:00 Intake Total 283 ml 230 ml 102 ml Balance 283 ml 230 ml 102 ml Intake Oral 283 ml IV Total 230 ml 102 ml # Voids 7 1 3 2 # Bowel Movements 1 Result Diagram: 09/15/16 1302 09/15/16 1302 Imaging Last Impressions Upper Extremity Ultrasound 09/10/16 0000 Signed Impressions: Service Date/Time: August 10:26 - CONCLUSION: Occlusive DVT involving the right brachial vein. Arnol Moon MD Chest X-Ray 09/08/16 0000 Signed Impressions: Service Date/Time: Thursday, September 08, 2016 09:56 - CONCLUSION: No focal or acute pulmonary infiltrates. Arnol Moon MD Brain MRI 09/07/16 0000 Signed Impressions: Service Date/Time: Wednesday, September 07, 2016 13:54 - CONCLUSION: 1. Cortical atrophy without acute intracranial abnormality. 2. Limited evaluation on contrasted sequences due to patient motion. 3. Minimal nonspecific white matter changes likely chronic ischemic small vessel vasculopathy. Jacobo Petersen MD Head CT 09/06/16 0000 Signed Impressions: Service Date/Time: Tuesday, September 06, 2016 16:11 - CONCLUSION: Unremarkable study. Mihaela Iraheta MD Objective Remarks GENERAL: Elderly female lying in bed in no acute resp distress SKIN: Warm and dry. HEAD: Atraumatic. Normocephalic. EYES: Pupils equal and round. No scleral icterus. ENT: No nasal bleeding or discharge. Mucous membranes pink and moist. NECK: Trachea midline. No JVD. CARDIOVASCULAR: Regular rate and rhythm. No murmurs rubs or gallops. RESPIRATORY: No accessory muscle use. Clear to auscultation. Breath sounds equal bilaterally. GASTROINTESTINAL: Abdomen soft, non-tender, nondistended. Tu MUSCULOSKELETAL: Extremities without clubbing, cyanosis, or edema. No obvious deformities. NEUROLOGICAL: Awake. A/P Problem List: (1) Status epilepticus ICD Code: G40.901 Status: Resolved (2) Seizure disorder ICD Code: G40.909 Status: Chronic (3) Dementia ICD Code: F03.90 Status: Chronic (4) Acute respiratory failure requiring reintubation ICD Code: J96.00 Status: Resolved (5) Staphylococcus aureus bacteremia ICD Code: R78.81 Status: Acute (6) Hypokalemia ICD Code: E87.6 Status: Resolved (7) H/O: CVA (cerebrovascular accident) ICD Code: Z86.73 Status: Chronic (8) Hyponatremia ICD Code: E87.1 Status: Acute (9) History of throat cancer ICD Code: Z85.819 Status: Acute (10) Deep vein thrombosis (DVT) of brachial vein of right upper extremity ICD Code: I82.621 Status: Acute (11) Weakness generalized ICD Code: R53.1 Status: Acute Assessment and Plan (1) Status epilepticus Plan: Anticonvulsant as per neurology. Continue Dilantin 100 mg IV every 8 hours. Phenobarbital 90 mg every 12 hours. Ativan when necessary seizure. Head CT negative for bleed MRI showed cortical atrophy without acute intracranial abnormality. EEG negative Neurology following. (2) Seizure disorder Plan: As above. (3) Dementia Plan: Continue donepezil which was held on admission. (4) Acute respiratory failure requiring reintubation Plan: Patient is status post intubation mechanical ventilation. Now extubated and nasal cannula. (5) Staphylococcus aureus bacteremia Plan: Patient growing MSSA on several blood cultures obtained. Patient had a right-sided port which has been discontinued. Appreciate ID consultation recommendations. Throughout assessment ID The patient currently on IV cefazolin and afebrile. Follow-up repeat blood cultures 09/15/16 repeat blood culture grew gram positive cocci --> fu ID recommendation. Continue antibiotics a sper ID. (6) Hypokalemia Plan: Hypokalemia resolved. Last potassium level 2.9 Continue to replace and monitor. (7) H/O: CVA (cerebrovascular accident) Plan: Continue aspirin, statin (8) Hyponatremia Plan: Sodium trending down. Now 130. The patient is euvolemic. I will start the patient on fluid restriction of 1 L. Serum and urine osmolality low. DVt proph: SCD's, on Lovenox SQ GI proph: Famotidine Discharge Planning Continue to monitor in the medical floor. Pending ID and neurology clearance. Pending PT eval. Problem Qualifiers (1) Dementia: (2) Deep vein thrombosis (DVT) of brachial vein of right upper extremity: Qualified Code: I82.621 - Acute deep vein thrombosis (DVT) of brachial vein of right upper extremity Andrez Hand MD Sep 16, 2016 14:10
--- NOTE | 2016-09-16 17:27 | HHI.PR ---
Subjective Remarks "I have been better " "I don't have pain but discomfort all over " Patient laying in bed comfortably, awake alert, she can develop simple conversation, she denied specific pain but she complained of discomfort all over her body She is afebrile Objective Vitals Vital Signs Date Time Temp Pulse Resp B/P Pulse Ox O2 Delivery O2 Flow Rate FiO2 09/16/16 16:00 97.8 62 18 112/72 98 09/16/16 12:00 96.8 60 20 87/53 98 09/16/16 08:00 96.2 78 18 122/78 97 09/16/16 07:28 71 09/16/16 04:00 96.1 72 19 135/87 97 09/16/16 00:00 97.2 68 19 127/71 100 09/15/16 23:00 65 09/15/16 20:25 95.6 78 18 105/64 97 I/O 09/15/16 09/15/16 09/15/16 09/16/16 09/16/16 09/16/16 07:00 15:00 23:00 07:00 15:00 23:00 Intake Total 283 ml 230 ml 102 ml 1200 ml Balance 283 ml 230 ml 102 ml 1200 ml Intake Oral 283 ml 1200 ml IV Total 230 ml 102 ml # Voids 7 1 3 2 5 # Bowel Movements 1 1 Result Diagram: 09/15/16 1302 09/15/16 1302 Objective Remarks GENERAL: This is a well-nourished, well-developed patient, in no apparent distress. CARDIOVASCULAR: Regular rate and rhythm without murmurs, gallops, or rubs. RESPIRATORY: Clear to auscultation. Breath sounds equal bilaterally. No wheezes , rales, or rhonchi. GASTROINTESTINAL: Abdomen soft, non-tender, nondistended. Normal active bowel sounds MUSCULOSKELETAL: Extremities without clubbing, cyanosis, or edema. NEURO: Alert & Oriented x4 to person, place, time, situation. Moves all ext x4 A/P Problem List: (1) Status epilepticus ICD Code: G40.901 Status: Resolved (2) Seizure disorder ICD Code: G40.909 Status: Chronic (3) Dementia ICD Code: F03.90 Status: Chronic (4) Acute respiratory failure requiring reintubation ICD Code: J96.00 Status: Resolved (5) Staphylococcus aureus bacteremia ICD Code: R78.81 Status: Acute (6) Hypokalemia ICD Code: E87.6 Status: Resolved (7) H/O: CVA (cerebrovascular accident) ICD Code: Z86.73 Status: Chronic (8) Hyponatremia ICD Code: E87.1 Status: Acute (9) History of throat cancer ICD Code: Z85.819 Status: Acute (10) Deep vein thrombosis (DVT) of brachial vein of right upper extremity ICD Code: I82.621 Status: Acute (11) Weakness generalized ICD Code: R53.1 Status: Acute Assessment and Plan (1) Status epilepticus Anticonvulsant as per neurology. Continue Dilantin 100 mg IV every 8 hours. Phenobarbital 90 mg every 12 hours. Ativan when necessary seizure. Head CT negative for bleed MRI showed cortical atrophy without acute intracranial abnormality. EEG negative Neurology following. (2) Seizure disorder As above. (3) Dementia Continue donepezil which was held on admission. (4) Acute respiratory failure requiring reintubation Patient is status post intubation mechanical ventilation. Now extubated and nasal cannula. (5) Staphylococcus aureus bacteremia Patient growing MSSA on several blood cultures obtained. Patient had a right- sided port which has been discontinued. Appreciate ID consultation recommendations. Throughout assessment ID The patient currently on IV cefazolin and afebrile. Follow-up repeat blood cultures 09/15/16 repeat blood culture grew gram positive cocci --> fu ID recommendation. Continue antibiotics a sper ID. (6) Hypokalemia Hypokalemia resolved. Last potassium level 2.9 Continue to replace and monitor. (7) H/O: CVA (cerebrovascular accident) Continue aspirin, statin (8) Hyponatremia Sodium trending down. Now 130. The patient is euvolemic. I will start the patient on fluid restriction of 1 L. Serum and urine osmolality low. DVt proph: SCD's, on Lovenox SQ GI proph: Famotidine Discharge Planning When cleared by ID Problem Qualifiers (1) Dementia: (2) Deep vein thrombosis (DVT) of brachial vein of right upper extremity: Qualified Code: I82.621 - Acute deep vein thrombosis (DVT) of brachial vein of right upper extremity Page Loving MD Sep 16, 2016 17:27
[2016-09-16] MEDS: PRAVASTATIN SOD 10 MG TAB PO SCH (23:34)
[2016-09-16] MEDS: DONEPEZIL HCL 5 MG TAB PO SCH (23:34)
[2016-09-17 00:34] VITALS: BP 130/62; PULSE 74; RESP 20; TEMP 96.6; O2SAT 99
[2016-09-17] MEDS: CHLORHEXIDINE GLUCONATE 2 % 1 PACK (2 CLOTHS) TOP SCH (02:34)
[2016-09-17 04:52] VITALS: BP 106/63; PULSE 70; RESP 20; TEMP 96.8; O2SAT 96
[2016-09-17] MEDS: PHENYTOIN SODIUM 100 MG CAP PO SCH ×3 (06:27→19:58)
[2016-09-17] MEDS: INSULIN NovoLIN REGULAR SUPPLEMENTAL SCALE SQ SCH ×4 (07:00→21:00)
[2016-09-17] MEDS: CHLORHEXIDINE 0.12% (ORAL KIT) 15 ML CUP MT SCH ×2 (07:14→19:58)
[2016-09-17 08:00] VITALS: BP 103/61; PULSE 68; RESP 20; TEMP 95.8; O2SAT 96
[2016-09-17] MEDS: MULTIVITAMIN TAB PO SCH (08:14)
[2016-09-17] MEDS: ENOXAPARIN SODIUM 60 MG/0.6 ML SYRINGE SQ SCH ×2 (08:15→22:22)
[2016-09-17] MEDS: FAMOTIDINE 20 MG TAB PO SCH (08:15)
[2016-09-17] MEDS: SODIUM CHLORIDE 0.9% FLUSH 5 ML FLUSH IVF SCH ×2 (08:20→19:58)
[2016-09-17 08:31] LABS: BICARBONATE 23.2 MEQ/L (21.0-32.0); POTASSIUM 4.5 MEQ/L (3.5-5.1)
[2016-09-17 09:01] LABS: AUTOMATED NEUTROPHIL # 1.9 TH/MM3 (1.8-7.7); EOSINOPHIL # 0.1 TH/MM3 (0-0.4); EOSINOPHIL % 4.3 % (0.0-4.0); HEMATOCRIT 31.6 % (35.0-46.0); HEMO FLAGS DIFF FINAL; LYMPH % 25.8 % (9.0-44.0); LYMPHOCYTE # 0.9 TH/MM3 (1.0-4.8); MEAN CELL VOLUME 85.2 FL (80.0-100.0); MEAN CORPUSCULAR HEMOGLOBIN 28.4 PG (27.0-34.0); MEAN CORPUSCULAR HGB CONC 33.3 % (32.0-36.0); MONO % 14.1 % (0.0-8.0); NEUT % 54.8 % (16.0-70.0); PLATELET COUNT 449 TH/MM3 (150-450); RED BLOOD COUNT 3.71 MIL/MM3 (4.00-5.30); RED CELL DISTRIBUTION WIDTH 15.9 % (11.6-17.2); WHITE BLOOD COUNT 3.5 TH/MM3 (4.0-11.0)
[2016-09-17 12:00] VITALS: BP 94/58; PULSE 77; RESP 20; TEMP 96.4; O2SAT 99
--- NOTE | 2016-09-17 15:38 | HHI.PR ---
Subjective Remarks Sitting on the chair no acute issue Denied chest pain or short of breath Afebrile Objective Vitals Vital Signs Date Time Temp Pulse Resp B/P Pulse Ox O2 Delivery O2 Flow Rate FiO2 09/17/16 12:00 96.4 77 20 94/58 99 09/17/16 08:00 95.8 68 20 103/61 96 09/17/16 04:52 96.8 70 20 106/63 96 09/17/16 00:34 96.6 74 20 130/62 99 09/16/16 22:25 96.6 66 22 111/73 98 09/16/16 16:00 97.8 62 18 112/72 98 I/O 09/16/16 09/16/16 09/16/16 09/17/16 09/17/16 09/17/16 06:59 14:59 22:59 06:59 14:59 22:59 Intake Total 102 ml 2400 ml 980 ml Output Total 400 ml Balance 102 ml 2400 ml -400 ml 980 ml Intake Oral 2400 ml 980 ml IV Total 102 ml Output Urine Total 400 ml # Voids 2 5 1 1 3 # Bowel Movements 1 0 Result Diagram: 09/17/16 0748 09/17/16 0748 Objective Remarks GENERAL: This is a well-nourished, well-developed patient, in no apparent distress. CARDIOVASCULAR: Regular rate and rhythm without murmurs, gallops, or rubs. RESPIRATORY: Clear to auscultation. Breath sounds equal bilaterally. No wheezes , rales, or rhonchi. GASTROINTESTINAL: Abdomen soft, non-tender, nondistended. Normal active bowel sounds MUSCULOSKELETAL: Extremities without clubbing, cyanosis, or edema. NEURO: Alert & Oriented x4 to person, place, time, situation. Moves all ext x4 A/P Problem List: (1) Status epilepticus ICD Code: G40.901 Status: Resolved (2) Seizure disorder ICD Code: G40.909 Status: Chronic (3) Dementia ICD Code: F03.90 Status: Chronic (4) Acute respiratory failure requiring reintubation ICD Code: J96.00 Status: Resolved (5) Staphylococcus aureus bacteremia ICD Code: R78.81 Status: Acute (6) Hypokalemia ICD Code: E87.6 Status: Resolved (7) H/O: CVA (cerebrovascular accident) ICD Code: Z86.73 Status: Chronic (8) Hyponatremia ICD Code: E87.1 Status: Acute (9) History of throat cancer ICD Code: Z85.819 Status: Acute (10) Deep vein thrombosis (DVT) of brachial vein of right upper extremity ICD Code: I82.621 Status: Acute (11) Weakness generalized ICD Code: R53.1 Status: Acute Assessment and Plan 09/17/16: Continue current care, continue cefazolin, further recommendation per ID A/P (1) Status epilepticus Anticonvulsant as per neurology. Continue Dilantin 100 mg IV every 8 hours. Phenobarbital 90 mg every 12 hours. Ativan when necessary seizure. Head CT negative for bleed MRI showed cortical atrophy without acute intracranial abnormality. EEG negative Neurology following. (2) Seizure disorder As above. (3) Dementia Continue donepezil which was held on admission. (4) Acute respiratory failure requiring reintubation Patient is status post intubation mechanical ventilation. Now extubated and nasal cannula. (5) Staphylococcus aureus bacteremia Patient growing MSSA on several blood cultures obtained. Patient had a right- sided port which has been discontinued. Appreciate ID consultation recommendations. Throughout assessment ID The patient currently on IV cefazolin and afebrile. Follow-up repeat blood cultures 09/15/16 repeat blood culture grew gram positive cocci --> fu ID recommendation. Continue antibiotics a sper ID. (6) Hypokalemia Hypokalemia resolved. Last potassium level 2.9 Continue to replace and monitor. (7) H/O: CVA (cerebrovascular accident) Continue aspirin, statin (8) Hyponatremia Sodium trending down. Now 130. The patient is euvolemic. I will start the patient on fluid restriction of 1 L. Serum and urine osmolality low. DVt proph: SCD's, on Lovenox SQ GI proph: Famotidine Discharge Planning When cleared by ID Problem Qualifiers (1) Dementia: (2) Deep vein thrombosis (DVT) of brachial vein of right upper extremity: Qualified Code: I82.621 - Acute deep vein thrombosis (DVT) of brachial vein of right upper extremity Page Loving MD Sep 17, 2016 15:37
[2016-09-17 16:00] VITALS: BP 107/64; PULSE 69; RESP 19; TEMP 96.7; O2SAT 98
[2016-09-17] MEDS: DONEPEZIL HCL 5 MG TAB PO SCH (19:58)
[2016-09-17] MEDS: PRAVASTATIN SOD 10 MG TAB PO SCH (19:58)
[2016-09-17 21:05] VITALS: BP 108/64; PULSE 120; RESP 20; TEMP 96.5; O2SAT 96
[2016-09-18 01:40] VITALS: BP 106/60; PULSE 68; RESP 20; TEMP 95.8; O2SAT 95
[2016-09-18 04:00] VITALS: BP 99/59; PULSE 69; RESP 18; TEMP 97.1; O2SAT 98
[2016-09-18] MEDS: CHLORHEXIDINE GLUCONATE 2 % 1 PACK (2 CLOTHS) TOP SCH (04:00)
[2016-09-18] MEDS: PHENYTOIN SODIUM 100 MG CAP PO SCH ×3 (04:47→21:16)
[2016-09-18] MEDS: INSULIN NovoLIN REGULAR SUPPLEMENTAL SCALE SQ SCH ×4 (05:19→21:00)
[2016-09-18 08:00] VITALS: BP 130/73; PULSE 59; PULSE 66; RESP 20; TEMP 96.2; O2SAT 100
[2016-09-18] MEDS: CHLORHEXIDINE 0.12% (ORAL KIT) 15 ML CUP MT SCH ×2 (08:00→20:00)
[2016-09-18] MEDS ORDERED: PHENO60 PO (09:19)
[2016-09-18] MEDS: SODIUM CHLORIDE 0.9% FLUSH 5 ML FLUSH IVF SCH ×2 (09:59→21:18)
[2016-09-18] MEDS: FAMOTIDINE 20 MG TAB PO SCH (10:01)
[2016-09-18] MEDS: ENOXAPARIN SODIUM 60 MG/0.6 ML SYRINGE SQ SCH ×2 (10:01→21:16)
[2016-09-18] MEDS: MULTIVITAMIN TAB PO SCH (10:04)
[2016-09-18 12:00] VITALS: BP 110/66; PULSE 65; RESP 21; TEMP 96.3; O2SAT 100
--- NOTE | 2016-09-18 15:43 | HHI.IDPN ---
Subjective Subjective Remarks ID X cover BC from 09/14 negative and one of the bottles has GPC that did not grow on solid media No fever since 09/10 No rash No diarrhea 2 D echo without any vegetations Antibiotics Ancef IV Lines Port site with no e/o infection. Past Medical History reviewed Allergies: Coded Allergies: No Known Allergies (Verified , 09/06/16) Objective . Vital Signs Date Time Temp Pulse Resp B/P Pulse Ox O2 Delivery O2 Flow Rate FiO2 09/18/16 12:00 96.3 65 21 110/66 100 09/18/16 08:00 59 09/18/16 08:00 96.2 66 20 130/73 100 09/18/16 04:00 97.1 69 18 99/59 98 09/18/16 01:40 95.8 68 20 106/60 95 09/17/16 21:05 96.5 120 20 108/64 96 09/17/16 16:00 96.7 69 19 107/64 98 09/17/16 09/17/16 09/18/16 15:00 23:00 07:00 Intake Total 980 ml 120 ml Balance 980 ml 120 ml Intake Oral 980 ml 120 ml # Voids 3 1 3 # Bowel Movements 0 0 . Laboratory Tests Test 09/17/16 07:48 White Blood Count 3.5 TH/MM3 Red Blood Count 3.71 MIL/MM3 Hemoglobin 10.5 GM/DL Hematocrit 31.6 % Mean Corpuscular Volume 85.2 FL Mean Corpuscular Hemoglobin 28.4 PG Mean Corpuscular Hemoglobin 33.3 % Concent Red Cell Distribution Width 15.9 % Platelet Count 449 TH/MM3 Mean Platelet Volume 8.6 FL Neutrophils (%) (Auto) 54.8 % Lymphocytes (%) (Auto) 25.8 % Monocytes (%) (Auto) 14.1 % Eosinophils (%) (Auto) 4.3 % Basophils (%) (Auto) 1.0 % Neutrophils # (Auto) 1.9 TH/MM3 Lymphocytes # (Auto) 0.9 TH/MM3 Monocytes # (Auto) 0.5 TH/MM3 Eosinophils # (Auto) 0.1 TH/MM3 Basophils # (Auto) 0.0 TH/MM3 CBC Comment DIFF FINAL Differential Comment Hematology Comments Laboratory Tests Test 09/16/16 09/17/16 21:56 07:48 Random Glucose 75 MG/DL 76 MG/DL Sodium Level 134 MEQ/L Potassium Level 4.5 MEQ/L Chloride Level 101 MEQ/L Carbon Dioxide Level 23.2 MEQ/L Anion Gap 10 MEQ/L Blood Urea Nitrogen 2 MG/DL Creatinine 0.26 MG/DL Estimat Glomerular Filtration 270 ML/MIN Rate Calcium Level 8.2 MG/DL Imaging Last Impressions Upper Extremity Ultrasound 09/10/16 0000 Signed Impressions: Service Date/Time: August 10:26 - CONCLUSION: Occlusive DVT involving the right brachial vein. Arnol Moon MD Chest X-Ray 09/08/16 0000 Signed Impressions: Service Date/Time: Thursday, September 08, 2016 09:56 - CONCLUSION: No focal or acute pulmonary infiltrates. Arnol Moon MD Brain MRI 09/07/16 0000 Signed Impressions: Service Date/Time: Wednesday, September 07, 2016 13:54 - CONCLUSION: 1. Cortical atrophy without acute intracranial abnormality. 2. Limited evaluation on contrasted sequences due to patient motion. 3. Minimal nonspecific white matter changes likely chronic ischemic small vessel vasculopathy. Jacobo Petersen MD Head CT 09/06/16 0000 Signed Impressions: Service Date/Time: Tuesday, September 06, 2016 16:11 - CONCLUSION: Unremarkable study. Mihaela Iraheta MD Physical Exam GENERAL: This is a well-nourished, well-developed patient, in no apparent distress. SKIN: No rashes, ecchymoses or lesions. Cool and dry. EYES: Pupils equal round and reactive. Extraocular motions intact. No scleral icterus. No injection or drainage. ENT: edentulous. Moist mucosae NECK: Trachea midline. Supple, nontender, no meningeal signs. CARDIOVASCULAR: Regular rate and rhythm without murmurs, gallops, or rubs. RESPIRATORY: Clear to auscultation. Breath sounds equal bilaterally. No wheezes , rales, or rhonchi. GASTROINTESTINAL: Abdomen soft, non-tender, nondistended. No hepato-splenomegaly , or palpable masses. No guarding. MUSCULOSKELETAL: Extremities without clubbing, cyanosis, or edema. No joint tenderness, effusion, or edema noted. RUE edema , soft no erythema NEUROLOGICAL: Opens eyes spontaneously. Moves extremities. Awake alert. Confused. Yelling. Speech incoherent Psych: could not be assessed. Previous Port site with no e/o infection. Assessment & Plan Remarks Sepsis present on admission. MSSA bacteremia likely port related - PORT removed - Most recent BC are negative - 2 D echo w/o veg's Staph in sputum likely colonization as CXR normal. Acute metabolic encephalopathy: seizure related, infection. Port in place: likely source of infection. Persistent fevers: resolved Doppler Right UE cw thrombophlebitis. Low grade coag negative bactermia, just 1 bottle - doubt clin significance Recs: Continue Ancef IV (14 days from 1st neg BC (09/14) PICC OK to dc p [facility]HC arranged I Terri Coronel MD Sep 18, 2016 15:43
--- NOTE | 2016-09-18 15:46 | HHI.FF ---
Infusion Therapy Location of Infusion Therapy: [facility] Infusion Therapy Order Patient Information Patient Weight 45.3 kg Diagnosis: Diagnosis MSSA sepsis Coded Allergies: No Known Allergies (Verified , 09/06/16) Administer Medication Cefazolin 2 grams IV q 8 hours Start Treatment: Sep 18, 2016 Stop Treatment: Sep 28, 2016 Additional Information Venous access: PICC Line Additional Instructions [x] Peripheral flush and dressing changes per protocol [x] Implanted port and central liner helper: * Implanted port: 10 ml Normal Saline followed by 5 ml Heparin 100 units/ml Heparin flush after each use and monthly to maintain. [] May leave port accessed during therapy. [] May leave peripheral site accessed for duration of therapy. [x] If patient has SOB or respiratory distress, check oxygen saturation. If less than 90% or clinical signs of respiratory distress, administer oxygen at 2 L/min. via nasal cannula and notify physician. [x] Anaphylaxis/Reaction orders: * Stop infusion. * Keep IV line open with saline flush. * Notify physician. * Monitor vital signs every 15 minutes until symptoms resolve. * Check Oxygen saturation; Oxygen at 2 L/min. via nasal cannula if less than 90% or clinical signs of respiratory distress. * Administer diphenhydramine (Benadryl) 25 mg IV STAT, (unless patient has received as pre-med). May repeat once, if necessary. * Solu-Cortef 250 mg IVP over 30-60 seconds, use 100 mg vials for each dissolution. * Epinephrine (1mg/1 ml) 0.3 mg subcutaneously or IVP now with any signs of respiratory distress. * Check with physician for new additional pre-med orders if patient is re- challenged or re-treated. [x] May remove PICC line when treatment complete, after confirming with Physician. [x] If the patient is admitted to the hospital, the ED, or transferred via [facility] , complete transfer form including medication reconciliation order sheet. Laboratory Tests Weekly Labs: CBC w/diff, Creatinine Terri Coronel MD Sep 18, 2016 15:46
[2016-09-18 16:00] VITALS: BP 94/69; PULSE 65; RESP 20; TEMP 97.9; O2SAT 100
[2016-09-18 20:00] VITALS: BP 100/53; PULSE 58; RESP 17; TEMP 97.6; O2SAT 99
[2016-09-18] MEDS: PRAVASTATIN SOD 10 MG TAB PO SCH (21:15)
[2016-09-18] MEDS: DONEPEZIL HCL 5 MG TAB PO SCH (21:16)
[2016-09-19] VITALS (8 sets, daily range): BP systolic 91–112; BP diastolic 56–75; PULSE 63–82; RESP 18–20; TEMP 95.9–98.2; O2SAT 94–100
[2016-09-19] MEDS: CHLORHEXIDINE GLUCONATE 2 % 1 PACK (2 CLOTHS) TOP SCH (03:42)
[2016-09-19] MEDS: PHENYTOIN SODIUM 100 MG CAP PO SCH ×3 (06:15→21:52)
[2016-09-19] MEDS: INSULIN NovoLIN REGULAR SUPPLEMENTAL SCALE SQ SCH ×4 (06:16→21:00)
[2016-09-19] MEDS: CHLORHEXIDINE 0.12% (ORAL KIT) 15 ML CUP MT SCH ×2 (08:00→20:00)
[2016-09-19] MEDS: SODIUM CHLORIDE 0.9% FLUSH 5 ML FLUSH IVF SCH (09:05)
[2016-09-19] MEDS: MULTIVITAMIN TAB PO SCH (09:06)
[2016-09-19] MEDS: FAMOTIDINE 20 MG TAB PO SCH (09:06)
[2016-09-19] MEDS: ENOXAPARIN SODIUM 60 MG/0.6 ML SYRINGE SQ SCH ×2 (09:06→21:53)
--- NOTE | 2016-09-19 10:37 | HHI.PR ---
Subjective Remarks Delayed entry for 09/18/15, patient was supposed to be discharged to rehabilitation that day Chavez was seen and examined, afebrile, seems to be stable for discharge, discussed with ID, needed to see patient prior to discharge decide on antibiotic Objective Vitals Vital Signs Date Time Temp Pulse Resp B/P Pulse Ox O2 Delivery O2 Flow Rate FiO2 09/19/16 07:53 75 09/19/16 07:25 98.2 79 18 91/56 94 09/19/16 04:00 97.3 82 18 95/61 97 09/19/16 00:00 97.0 81 18 112/75 97 09/18/16 20:00 97.6 58 17 100/53 99 09/18/16 16:00 97.9 65 20 94/69 100 09/18/16 12:00 96.3 65 21 110/66 100 I/O 09/18/16 09/18/16 09/18/16 09/19/16 09/19/16 09/19/16 07:00 15:00 23:00 07:00 15:00 23:00 Intake Total 120 ml 499 ml 238 ml Balance 120 ml 499 ml 238 ml Intake Oral 120 ml 390 ml 120 ml IV Total 109 ml 118 ml # Voids 3 6 6 # Bowel Movements 0 0 1 1 Result Diagram: 09/17/1674709/17/1648 Objective Remarks GENERAL: This is a well-nourished, well-developed patient, in no apparent distress. CARDIOVASCULAR: Regular rate and rhythm without murmurs, gallops, or rubs. RESPIRATORY: Clear to auscultation. Breath sounds equal bilaterally. No wheezes , rales, or rhonchi. GASTROINTESTINAL: Abdomen soft, non-tender, nondistended. Normal active bowel sounds MUSCULOSKELETAL: Extremities without clubbing, cyanosis, or edema. NEURO: Alert & Oriented x4 to person, place, time, situation. Moves all ext x4 A/P Problem List: (1) Status epilepticus ICD Code: G40.901 Status: Resolved (2) Seizure disorder ICD Code: G40.909 Status: Chronic (3) Dementia ICD Code: F03.90 Status: Chronic (4) Acute respiratory failure requiring reintubation ICD Code: J96.00 Status: Resolved (5) Staphylococcus aureus bacteremia ICD Code: R78.81 Status: Acute (6) Hypokalemia ICD Code: E87.6 Status: Resolved (7) H/O: CVA (cerebrovascular accident) ICD Code: Z86.73 Status: Chronic (8) Hyponatremia ICD Code: E87.1 Status: Acute (9) History of throat cancer ICD Code: Z85.819 Status: Acute (10) Deep vein thrombosis (DVT) of brachial vein of right upper extremity ICD Code: I82.621 Status: Acute (11) Weakness generalized ICD Code: R53.1 Status: Acute Assessment and Plan 09/17/16: Continue current care, continue cefazolin, further recommendation per ID 09/18/16:D/W ID, they requested to see the patient prior to discharge to decide on final antibiotic regimen A/P (1) Status epilepticus Anticonvulsant as per neurology. Continue Dilantin 100 mg IV every 8 hours. Phenobarbital 90 mg every 12 hours. Ativan when necessary seizure. Head CT negative for bleed MRI showed cortical atrophy without acute intracranial abnormality. EEG negative Neurology following. (2) Seizure disorder As above. (3) Dementia Continue donepezil which was held on admission. (4) Acute respiratory failure requiring reintubation Patient is status post intubation mechanical ventilation. Now extubated and nasal cannula. (5) Staphylococcus aureus bacteremia Patient growing MSSA on several blood cultures obtained. Patient had a right- sided port which has been discontinued. Appreciate ID consultation recommendations. Throughout assessment ID The patient currently on IV cefazolin and afebrile. Follow-up repeat blood cultures 09/15/16 repeat blood culture grew gram positive cocci --> fu ID recommendation. Continue antibiotics a sper ID. (6) Hypokalemia Hypokalemia resolved. Last potassium level 2.9 Continue to replace and monitor. (7) H/O: CVA (cerebrovascular accident) Continue aspirin, statin (8) Hyponatremia Started on fluid restriction started to improve DVt proph: SCD's, on Lovenox SQ GI proph: Famotidine Discharge Planning When cleared by ID Problem Qualifiers (1) Dementia: (2) Deep vein thrombosis (DVT) of brachial vein of right upper extremity: Qualified Code: I82.621 - Acute deep vein thrombosis (DVT) of brachial vein of right upper extremity Page Loving MD Sep 19, 2016 10:37 Page Loving MD Sep 19, 2016 10:37
--- NOTE | 2016-09-19 10:43 | HHI.DS ---
Discharge Summary Admission Date Sep 06, 2016 at 17:07 Discharge Date: Sep 20, 2016 Admitting Diagnosis status epilepticus (1) Status epilepticus ICD Code: G40.901 (2) Seizure disorder ICD Code: G40.909 (3) Dementia ICD Code: F03.90 (4) Acute respiratory failure requiring reintubation ICD Code: J96.00 (5) Staphylococcus aureus bacteremia ICD Code: R78.81 (6) Hypokalemia ICD Code: E87.6 (7) H/O: CVA (cerebrovascular accident) ICD Code: Z86.73 (8) Hyponatremia ICD Code: E87.1 (9) History of throat cancer ICD Code: Z85.819 (10) Deep vein thrombosis (DVT) of brachial vein of right upper extremity ICD Code: I82.621 (11) Weakness generalized ICD Code: R53.1 Procedures See below Brief History - From Admission HPI This is a 56-year-old female who has a history of dementia and reported prior stroke who presents to the emergency department with reported seizures witnessed by her custodial and by EMS. Patient reportedly had 4 episodes of repetitive movements that lasted for about a minute and then subsided. Patient has a history of dementia and is unable to provide any history. [facility] gave the patient 2 mg of IM Ativan but she continued to have some repetitive movements and gaze deviation to the left. Patient received 8 mg of Ativan total in the ER however continued to have seizures. She was thought to be in status epilepticus and she was intubated by ER physician and placed on propofol as well as given 1 g of fosphenytoin IV. Dr. Lee from neurology was contacted and ordered phenobarbital and recommended versed gtt for sedation. When I evaluated the patient she was sedated, orally intubated on mechanical ventilation on a Versed drip. History was obtained by reviewing records and discussion with ER physician. History PFSH Past Medical History Arthritis: No Asthma: No Autoimmune Disease: No Blood Disorders: No Anxiety: Yes Depression: Yes Heart Rhythm Problems: No Cancer: No Cardiovascular Problems: No High Cholesterol: No Chemotherapy: No Chest Pain: No Congestive Heart Failure: No COPD: No Cerebrovascular Accident: No Dementia: Yes (ALCOHOL INDUCED ) Diabetes: No Diminished Hearing: No Endocrine: No GERD: No Glaucoma: No Genitourinary: No Headaches: No Hepatitis: No Hiatal Hernia: No Hypertension: No Immune Disorder: No Implanted Vascular Access Dvce: Yes (PORT ) Kidney Stones: No Musculoskeletal: No Neurologic: Yes Psychiatric: Yes (PSYCHOSIS) Reproductive: No Respiratory: No Migraines: No Myocardial Infarction: No Radiation Therapy: No Renal Failure: No Schizophrenia: Yes Seizures: Yes Sickle Cell Disease: No Sleep Apnea: No Thyroid Disease: No Ulcer: No Menopausal: Yes Past Surgical History AICD: No Appendectomy: Yes Arteriovenous Shunt: No Cardiac Surgery: No Cholecystectomy: No Ear Surgery: No Endocrine Surgery: No Eye Surgery: No Genitourinary Surgery: No Gynecologic Surgery: No Insulin Pump: No Joint Replacement: No Pacemaker: No Thoracic Surgery: No Tonsillectomy: Yes Social History Alcohol Use: No (UNABLE TO ASSESS) Tobacco Use: Yes (PACK A DAY ) Substance Use: No Allergies-Medications Allergies-Medications (Allergen,Severity, Reaction): Coded Allergies: No Known Allergies (Verified , 09/06/16) Reported Meds & Prescriptions Reported Meds & Active Scripts Active Ativan (Lorazepam) 0.5 Mg Tab 0.5 Mg PO Q8H PRN Zyprexa (Olanzapine) 2.5 Mg Tab 2.5 Mg PO BID Dilantin (Phenytoin Extended) 100 Mg Cap 100 Mg PO TID Reported Buspirone (Buspirone HCl) 15 Mg Tab 15 Mg PO TID Pantoprazole (Pantoprazole Sodium) 40 Mg Tab 40 Mg PO BID Vimpat (Lacosamide) 50 Mg Tab 50 Mg PO BID Simvastatin 5 Mg Tab 5 Mg PO HS Donepezil 10 Mg Tab 10 Mg PO HS Aspirin 81 Mg Tabdr 81 Mg PO DAILY ROS Review of Systems ROS Limitations: Intubated, Altered Mental Status CBC/BMP: 09/17/16 0748 09/17/16 0748 Significant Findings Laboratory Tests Test 09/17/16 07:48 White Blood Count 3.5 TH/MM3 (4.0-11.0) Red Blood Count 3.71 MIL/MM3 (4.00-5.30) Hemoglobin 10.5 GM/DL (11.6-15.3) Hematocrit 31.6 % (35.0-46.0) Monocytes (%) (Auto) 14.1 % (0.0-8.0) Eosinophils (%) (Auto) 4.3 % (0.0-4.0) Lymphocytes # (Auto) 0.9 TH/MM3 (1.0-4.8) Sodium Level 134 MEQ/L (136-145) Blood Urea Nitrogen 2 MG/DL (7-18) Creatinine 0.26 MG/DL (0.50-1.00) Calcium Level 8.2 MG/DL (8.5-10.1) PE at Discharge GENERAL: This is a well-nourished, well-developed patient, in no apparent distress. CARDIOVASCULAR: Regular rate and rhythm without murmurs, gallops, or rubs. RESPIRATORY: Clear to auscultation. Breath sounds equal bilaterally. No wheezes , rales, or rhonchi. GASTROINTESTINAL: Abdomen soft, non-tender, nondistended. Normal active bowel sounds MUSCULOSKELETAL: Extremities without clubbing, cyanosis, or edema. NEURO: Alert & Oriented x4 to person, place, time, situation. Moves all ext x4 Hospital Course 56 years old female admitted for status epilepticus, seizure disorder, she was found to have MSSA bacteremia, neurology consulted, Ativan and Dilantin loading dose started, head CT was negative MRI showed cortical atrophy without acute intracranial abnormality, EEG was negative, neurology cleared patient to go on Dilantin 100 mg 3 times a day with barbital 90 mg twice a day, ID was consulted for bacteremiapatient was on cefazolin, ID recommended completing 14 days of cefazolin. Patient also had hyponatremia started on fluid restriction, improved Daily hospital course as follows 09/17/16: Continue current care, continue cefazolin, further recommendation per ID 09/18/16:D/W ID, they requested to see the patient prior to discharge to decide on final antibiotic regimen 09/19/16: Discussed with rn case manager hospice, awaiting PICC line insertion consent to be signed by the so patient can be discharged to rehabilitation today A/P (1) Status epilepticus Anticonvulsant as per neurology. Continue Dilantin 100 mg IV every 8 hours. Phenobarbital 90 mg every 12 hours. Ativan when necessary seizure. Head CT negative for bleed MRI showed cortical atrophy without acute intracranial abnormality. EEG negative Neurology following. (2) Seizure disorder As above. (3) Dementia Continue donepezil which was held on admission. (4) Acute respiratory failure requiring reintubation Patient is status post intubation mechanical ventilation. Now extubated and nasal cannula. (5) Staphylococcus aureus bacteremia Patient growing MSSA on several blood cultures obtained. Patient had a right- sided port which has been discontinued. Appreciate ID consultation recommendations. Throughout assessment ID The patient currently on IV cefazolin and afebrile. Follow-up repeat blood cultures 09/15/16 repeat blood culture grew gram positive cocci --> fu ID recommendation. Continue antibiotics a sper ID. (6) Hypokalemia Hypokalemia resolved. Last potassium level 2.9 Continue to replace and monitor. (7) H/O: CVA (cerebrovascular accident) Continue aspirin, statin (8) Hyponatremia Started on fluid restriction started to improve DVt proph: SCD's, on Lovenox SQ GI proph: Famotidine Pt Condition on Discharge: Fair Discharge Disposition: Discharge to SNF Discharge Time: > 30 minutes Discharge Instructions DIET: Follow Instructions for: Heart Healthy Diet Activities you can perform: Weight Bearing as Kaylyn Other Activity Instructions: no swimimng , driving untill cleared by neurology Follow up Referrals: Neurology - 2 Weeks with Jignesh Lee MD New Medications: Phenobarbital (Phenobarbital) 64.8 Mg Tab 90 MG PO BID seizure \ #60 TAB Continued Medications: Aspirin (Aspirin) 81 Mg Tabdr 81 MG PO DAILY HEART HEALTH TAB Donepezil (Donepezil) 10 Mg Tab 10 MG PO HS Dementia TAB Olanzapine (Olanzapine) 5 Mg Tab 5 MG PO BID #60 Ref 0 TAB Pantoprazole (Pantoprazole) 40 Mg Tab 40 MG PO BID Inflammation TAB Phenytoin Extended (Dilantin) 100 Mg Cap 100 MG PO TID Control Seizures #90 Ref 0 CAP Simvastatin (Simvastatin) 5 Mg Tab 5 MG PO HS Cholesterol Management TAB Page Loving MD Sep 19, 2016 10:43
--- NOTE | 2016-09-19 11:10 | HHI.PR ---
Subjective Remarks Patient seen and examined today 09/19/16 ] She is sleeping woke up to voice Discussed with case resolution specialist, we are waiting for the to sign consent to insert decline so patient can go to rehabilitation Objective Vitals Vital Signs Date Time Temp Pulse Resp B/P Pulse Ox O2 Delivery O2 Flow Rate FiO2 09/19/16 07:53 75 09/19/16 07:25 98.2 79 18 91/56 94 09/19/16 04:00 97.3 82 18 95/61 97 09/19/16 00:00 97.0 81 18 112/75 97 09/18/16 20:00 97.6 58 17 100/53 99 09/18/16 16:00 97.9 65 20 94/69 100 09/18/16 12:00 96.3 65 21 110/66 100 I/O 09/18/16 09/18/16 09/18/16 09/19/16 09/19/16 09/19/16 07:00 15:00 23:00 07:00 15:00 23:00 Intake Total 120 ml 499 ml 238 ml Balance 120 ml 499 ml 238 ml Intake Oral 120 ml 390 ml 120 ml IV Total 109 ml 118 ml # Voids 3 6 6 # Bowel Movements 0 0 1 1 Result Diagram: 09/17/1648 09/17/1648 Objective Remarks GENERAL: This is a well-nourished, well-developed patient, in no apparent distress. CARDIOVASCULAR: Regular rate and rhythm without murmurs, gallops, or rubs. RESPIRATORY: Clear to auscultation. Breath sounds equal bilaterally. No wheezes , rales, or rhonchi. GASTROINTESTINAL: Abdomen soft, non-tender, nondistended. Normal active bowel sounds MUSCULOSKELETAL: Extremities without clubbing, cyanosis, or edema. NEURO: Alert & Oriented x4 to person, place, time, situation. Moves all ext x4 Procedures See below A/P Problem List: (1) Status epilepticus ICD Code: G40.901 Status: Resolved (2) Seizure disorder ICD Code: G40.909 Status: Chronic (3) Dementia ICD Code: F03.90 Status: Chronic (4) Acute respiratory failure requiring reintubation ICD Code: J96.00 Status: Resolved (5) Staphylococcus aureus bacteremia ICD Code: R78.81 Status: Acute (6) Hypokalemia ICD Code: E87.6 Status: Resolved (7) H/O: CVA (cerebrovascular accident) ICD Code: Z86.73 Status: Chronic (8) Hyponatremia ICD Code: E87.1 Status: Acute (9) History of throat cancer ICD Code: Z85.819 Status: Acute (10) Deep vein thrombosis (DVT) of brachial vein of right upper extremity ICD Code: I82.621 Status: Acute (11) Weakness generalized ICD Code: R53.1 Status: Acute Assessment and Plan 09/17/16: Continue current care, continue cefazolin, further recommendation per ID 09/18/16:D/W ID, they requested to see the patient prior to discharge to decide on final antibiotic regimen 09/19/16: Discussed with case resolution specialist, awaiting PICC line insertion consent to be signed by the so patient can be discharged to rehabilitation today A/P (1) Status epilepticus Anticonvulsant as per neurology. Continue Dilantin 100 mg IV every 8 hours. Phenobarbital 90 mg every 12 hours. Ativan when necessary seizure. Head CT negative for bleed MRI showed cortical atrophy without acute intracranial abnormality. EEG negative Neurology following. (2) Seizure disorder As above. (3) Dementia Continue donepezil which was held on admission. (4) Acute respiratory failure requiring reintubation Patient is status post intubation mechanical ventilation. Now extubated and nasal cannula. (5) Staphylococcus aureus bacteremia Patient growing MSSA on several blood cultures obtained. Patient had a right- sided port which has been discontinued. Appreciate ID consultation recommendations. Throughout assessment ID The patient currently on IV cefazolin and afebrile. Follow-up repeat blood cultures 09/15/16 repeat blood culture grew gram positive cocci --> fu ID recommendation. Continue antibiotics a sper ID. (6) Hypokalemia Hypokalemia resolved. Last potassium level 2.9 Continue to replace and monitor. (7) H/O: CVA (cerebrovascular accident) Continue aspirin, statin (8) Hyponatremia Started on fluid restriction started to improve DVt proph: SCD's, on Lovenox SQ GI proph: Famotidine Discharge Planning Discussed with case resolution specialist To rehabilitation today once consent for PICC line insertion of pain and signed by the hospital Problem Qualifiers (1) Dementia: (2) Deep vein thrombosis (DVT) of brachial vein of right upper extremity: Qualified Code: I82.621 - Acute deep vein thrombosis (DVT) of brachial vein of right upper extremity Page Loving MD Sep 19, 2016 11:10
--- NOTE | 2016-09-19 18:09 | RADRPT ---
EXAM DATE/TIME: 09/19/2016 18:00 [facility] COMPARISON: CHEST SINGLE AP, September 08, 2016, 9:56. INDICATIONS : Post PICC line placement. MEDICAL HISTORY : Cardiovascular disease. Dementia. SURGICAL HISTORY : Tonsillectomy. ENCOUNTER: Initial ACUITY: 1 day PAIN SCORE: 0/10 LOCATION: Bilateral chest FINDINGS: There is placement of a right PICC line terminating in the superior vena cava. ET tube and nasogastri c tube have been removed. Mild prominence of the left retrocardiac parenchyma bronchovascular marking s remains CONCLUSION: Right PICC line in place terminating the superior vena cava Jamari Houston MD on September 19, 2016 at 18:07 Board Certified Radiologist. This report was verified electronically.
[2016-09-19] MEDS: PRAVASTATIN SOD 10 MG TAB PO SCH (21:52)
[2016-09-19] MEDS: DONEPEZIL HCL 5 MG TAB PO SCH (22:00)
[2016-09-20] VITALS: BP 108/61; PULSE 64; RESP 20; TEMP 95.7; O2SAT 98
[2016-09-20 04:00] VITALS: BP 102/58; PULSE 64; RESP 20; TEMP 96.2; O2SAT 98
[2016-09-20] MEDS: CHLORHEXIDINE GLUCONATE 2 % 1 PACK (2 CLOTHS) TOP SCH (04:00)
[2016-09-20] MEDS: PHENYTOIN SODIUM 100 MG CAP PO SCH (06:10)
[2016-09-20] MEDS: INSULIN NovoLIN REGULAR SUPPLEMENTAL SCALE SQ SCH ×2 (06:10→11:00)
[2016-09-20 07:37] VITALS: PULSE 58
[2016-09-20 07:40] VITALS: BP 90/54; PULSE 67; RESP 20; TEMP 97; O2SAT 97
[2016-09-20] MEDS: CHLORHEXIDINE 0.12% (ORAL KIT) 15 ML CUP MT SCH (08:00)
[2016-09-20] MEDS: ENOXAPARIN SODIUM 60 MG/0.6 ML SYRINGE SQ SCH (09:35)
[2016-09-20] MEDS: FAMOTIDINE 20 MG TAB PO SCH (09:36)
[2016-09-20] MEDS: MULTIVITAMIN TAB PO SCH (09:36)
[2016-09-20 11:32] VITALS: BP 112/59; PULSE 60; RESP 20; TEMP 98; O2SAT 100
--- NOTE | 2016-09-20 11:42 | HHI.PR ---
Subjective Remarks Laying in bed comfortably, patient had PICC line yesterday, awaiting discharge I was told by the nurse, nursing facility hesitant to accept patient due to antibiotic cost This estimation manager working on the placement Objective Vitals Vital Signs Date Time Temp Pulse Resp B/P Pulse Ox O2 Delivery O2 Flow Rate FiO2 09/20/16 11:32 98.0 60 20 112/59 100 09/20/16 07:40 97.0 67 20 90/54 97 09/20/16 07:37 58 09/20/16 04:00 96.2 64 20 102/58 98 09/20/16 00:00 95.7 64 20 108/61 98 09/19/16 23:00 63 09/19/16 20:00 95.9 71 20 100/63 100 09/19/16 16:29 97.4 68 20 92/60 94 09/19/16 12:04 98.2 65 20 103/56 95 I/O 09/19/16 09/19/16 09/19/16 09/20/16 09/20/16 09/20/16 07:00 15:00 23:00 07:00 15:00 23:00 Intake Total 238 ml 240 ml 460 ml Balance 238 ml 240 ml 460 ml Intake Oral 120 ml 240 ml 360 ml IV Total 118 ml 100 ml # Voids 6 4 3 4 # Bowel Movements 1 1 0 0 Result Diagram: 09/17/1648 09/17/1648 Objective Remarks GENERAL: This is a well-nourished, well-developed patient, in no apparent distress. CARDIOVASCULAR: Regular rate and rhythm without murmurs, gallops, or rubs. RESPIRATORY: Clear to auscultation. Breath sounds equal bilaterally. No wheezes , rales, or rhonchi. GASTROINTESTINAL: Abdomen soft, non-tender, nondistended. Normal active bowel sounds MUSCULOSKELETAL: Extremities without clubbing, cyanosis, or edema. NEURO: Alert & Oriented x4 to person, place, time, situation. Moves all ext x4 Procedures See below A/P Problem List: (1) Status epilepticus ICD Code: G40.901 Status: Resolved (2) Seizure disorder ICD Code: G40.909 Status: Chronic (3) Dementia ICD Code: F03.90 Status: Chronic (4) Acute respiratory failure requiring reintubation ICD Code: J96.00 Status: Resolved (5) Staphylococcus aureus bacteremia ICD Code: R78.81 Status: Acute (6) Hypokalemia ICD Code: E87.6 Status: Resolved (7) H/O: CVA (cerebrovascular accident) ICD Code: Z86.73 Status: Chronic (8) Hyponatremia ICD Code: E87.1 Status: Acute (9) History of throat cancer ICD Code: Z85.819 Status: Acute (10) Deep vein thrombosis (DVT) of brachial vein of right upper extremity ICD Code: I82.621 Status: Acute (11) Weakness generalized ICD Code: R53.1 Status: Acute Assessment and Plan 09/17/16: Continue current care, continue cefazolin, further recommendation per ID 09/18/16:D/W ID, they requested to see the patient prior to discharge to decide on final antibiotic regimen 09/19/16: Discussed with geriatric case manager, awaiting PICC line insertion consent to be signed by the so patient can be discharged to rehabilitation today A/P (1) Status epilepticus Anticonvulsant as per neurology. Continue Dilantin 100 mg IV every 8 hours. Phenobarbital 90 mg every 12 hours. Ativan when necessary seizure. Head CT negative for bleed MRI showed cortical atrophy without acute intracranial abnormality. EEG negative Neurology following. (2) Seizure disorder As above. (3) Dementia Continue donepezil which was held on admission. (4) Acute respiratory failure requiring reintubation Patient is status post intubation mechanical ventilation. Now extubated and nasal cannula. (5) Staphylococcus aureus bacteremia Patient growing MSSA on several blood cultures obtained. Patient had a right- sided port which has been discontinued. Appreciate ID consultation recommendations. Throughout assessment ID The patient currently on IV cefazolin and afebrile. Follow-up repeat blood cultures 09/15/16 repeat blood culture grew gram positive cocci --> fu ID recommendation. Continue antibiotics a sper ID. (6) Hypokalemia Hypokalemia resolved. Last potassium level 2.9 Continue to replace and monitor. (7) H/O: CVA (cerebrovascular accident) Continue aspirin, statin (8) Hyponatremia Started on fluid restriction started to improve DVt proph: SCD's, on Lovenox SQ GI proph: Famotidine Discharge Planning Awaiting placement, patient got her PICC line Problem Qualifiers (1) Dementia: (2) Deep vein thrombosis (DVT) of brachial vein of right upper extremity: Qualified Code: I82.621 - Acute deep vein thrombosis (DVT) of brachial vein of right upper extremity Page Loving MD Sep 20, 2016 11:42
== END 2016-09-20 13:15 | DRG 100 ==
LOC: NEPE 14:50 → NEDA 17:07 → HIMN 21:00 → N05B 09-14 03:45
PROVIDERS: ADMIT Hospitalist; ATTEND Hospitalist
PROC: 0BH17EZ Insertion of Endotracheal Airway into Trachea, Via Natural or Artificial Opening (ICD-10-PCS; principal; 2016-09-06)
PROC: 5A1945Z Respiratory Ventilation, 24-96 Consecutive Hours (ICD-10-PCS; 2016-09-06)
PROC: 0JPT0WZ Removal of Totally Implantable Vascular Access Device from Trunk Subcutaneous Tissue and Fascia, Open Approach (ICD-10-PCS; 2016-09-10)
PROC: 02HV33Z Insertion of Infusion Device into Superior Vena Cava, Percutaneous Approach (ICD-10-PCS; 2016-09-19)
PROC: B548ZZA Ultrasonography of Superior Vena Cava, Guidance (ICD-10-PCS; 2016-09-19)
DX: G40.901 Epilepsy, unspecified, not intractable, with status epilepticus (principal); J96.00 Acute respiratory failure, unspecified whether with hypoxia or hypercapnia; G93.41 Metabolic encephalopathy; R78.81 Bacteremia; I82.621 Acute embolism and thrombosis of deep veins of right upper extremity; E87.1 Hypo-osmolality and hyponatremia; F17.210 Nicotine dependence, cigarettes, uncomplicated; F03.90 Unspecified dementia, unspecified severity, without behavioral disturbance, psychotic disturbance, mood disturbance, and anxiety; Z86.73 Personal history of transient ischemic attack (TIA), and cerebral infarction without residual deficits; E87.6 Hypokalemia; Z85.819 Personal history of malignant neoplasm of unspecified site of lip, oral cavity, and pharynx; R53.1 Weakness; Z92.21 Personal history of antineoplastic chemotherapy; Z92.3 Personal history of irradiation; Z95.828 Presence of other vascular implants and grafts; E78.5 Hyperlipidemia, unspecified; D64.9 Anemia, unspecified
CPT/HCPCS: 31500; 36430; 36569; 36600; 51702; 70450; 70553; 71010; 76937; 80048; 80053; 80184; 80185; 81001; 82533; 82550; 82805; 82947; 82948; 83605; 83735; 83930; 83935; 84100; 84132; 84155; 84300; 84443; 85014; 85018; 85025; 85027; 85610; 86140; 86403; 86850; 86900; 86901; 86920; 87040; 87070; 87077; 87086; 87147; 87186; 87205; 87641; 93005; 93306; 93971; 94002; 94003; 94150; 94640; 94664; 95819; 96365; 96367; 96375; 96376; A9579; C9399; J0330; J0610; J0690; J1165; J1170; J1642; J1650; J2060; J2250; J2543; J2560; J3010; J3370; J3480; J7030; J7040; J7050; P9016; Q2009

== ENCOUNTER 2017-03-07 15:39 | Inpatient (IN) | payer MEDICARE, OTHER ==
[~2017-03-07] VITALS: Ht 152.4 cm; Wt 47.5 kg
[2017-03-07] VITALS (9 sets, daily range): BP systolic 128–171; BP diastolic 61–101; PULSE 81–102; RESP 14–20; TEMP 97.7–100.3; O2SAT 88–100
[~2017-03-07 15:39] MED LIST changes: +DUCO5TAB PO; +MULTTAB67 PO; +NAPR500T PO; +NUED20CA PO; +OLAN5TAB PO; +PHENO60 PO; +ROCE1INJ3 IM; +TRAZ50TA12 PO; -ZYPR2.5T2 PO
--- NOTE | 2017-03-07 15:55 | PD ---
HPI Chief Complaint: AMS Time Seen by Provider: 15:50 History of Present Illness HPI PATIENT SENT TO OUR ED FROM [facility] FOR AMS POSSIBLE SEIZURES...PT IS ON DILANTIN FOR "UNSPECIFIED CONVULSIONS" BELIEVED TO BE RELATED TO ETOH USE? NO FURTHER H/O FROM PATIENT.. PFSH Past Medical History Arthritis: No Asthma: No Autoimmune Disease: No Blood Disorders: No Anxiety: Yes Depression: Yes Heart Rhythm Problems: No Cancer: No Cardiovascular Problems: No High Cholesterol: No Chemotherapy: No Chest Pain: No Congestive Heart Failure: No COPD: No Cerebrovascular Accident: No Dementia: Yes (ALCOHOL INDUCED ) Diabetes: No Diminished Hearing: No Endocrine: No GERD: No Glaucoma: No Genitourinary: No Headaches: No Hepatitis: No Hiatal Hernia: No Hypertension: No Immune Disorder: No Implanted Vascular Access Dvce: Yes (PORT ) Kidney Stones: No Musculoskeletal: No Neurologic: Yes Psychiatric: Yes (PSYCHOSIS) Reproductive: No Respiratory: No Migraines: No Myocardial Infarction: No Radiation Therapy: No Renal Failure: No Schizophrenia: Yes Seizures: Yes Sickle Cell Disease: No Sleep Apnea: No Thyroid Disease: No Ulcer: No Menopausal: Yes Past Surgical History AICD: No Appendectomy: Yes Arteriovenous Shunt: No Cardiac Surgery: No Cholecystectomy: No Ear Surgery: No Endocrine Surgery: No Eye Surgery: No Genitourinary Surgery: No Gynecologic Surgery: No Insulin Pump: No Joint Replacement: No Pacemaker: No Thoracic Surgery: No Tonsillectomy: Yes Social History Alcohol Use: No (UNABLE TO ASSESS) Tobacco Use: Yes (PACK A DAY ) Substance Use: No Allergies-Medications (Allergen,Severity, Reaction): Coded Allergies: No Known Allergies (Verified , 09/06/16) Reported Meds & Prescriptions Reported Meds & Active Scripts Active Dilantin (Phenytoin Extended) 100 Mg Cap 100 Mg PO TID Reported Vitamin D3 (Cholecalciferol) 50,000 Unit Cap 50,000 Units PO WEEKLY Give on Mondays Phenobarbital 64.8 Mg Tab 64.8 Mg PO BID Ativan (Lorazepam) 0.5 Mg Tab 0.5 Mg PO Q6H PRN Aspirin Adult Low Strength (Aspirin) 81 Mg Tabdr 81 Mg PO DAILY Olanzapine 5 Mg Tab 5 Mg PO BID Nuedexta 20-10 mg (Dextromethorphan HBr-Quinidine) 1 Cap Cap 1 Cap PO BID Pantoprazole (Pantoprazole Sodium) 40 Mg Tab 40 Mg PO BID Simvastatin 5 Mg Tab 5 Mg PO HS Donepezil 10 Mg Tab 10 Mg PO HS Review of Systems ROS Limitations: Altered Mental Status Except as stated in HPI: all other systems reviewed are Neg Physical Exam Exam Limitations: Altered Mental Status Narrative GENERAL: SKIN: Warm and dry. HEAD: Atraumatic. Normocephalic. EYES: Pupils equal and round. No scleral icterus. No injection or drainage. ENT: No nasal bleeding or discharge. Mucous membranes pink and moist. NECK: Trachea midline. No JVD. CARDIOVASCULAR: Regular rate and rhythm. RESPIRATORY: No accessory muscle use. Clear to auscultation. Breath sounds equal bilaterally. GASTROINTESTINAL: Abdomen soft, non-tender, nondistended. Hepatic and splenic margins not palpable. MUSCULOSKELETAL: Extremities without clubbing, cyanosis, or edema. No obvious deformities. NEUROLOGICAL: PATIENT INITIALLY NOT SPEAKING, DOES NOT FOLLOW COMMANDS...HOWEVER AFTER ATIVAN, PATIENT WAS ABLE TO STOP TREMORING AND ABLE TO LOOK AT PERSON SPEAKING Data Data Last Documented VS Vital Signs Date Time Temp Pulse Resp B/P Pulse Ox O2 Delivery O2 Flow Rate FiO2 03/07/17 16:33 97.7 102 18 171/101 100 03/07/17 15:56 Room Air Orders Complete Blood Count With Diff (03/07/17 15:50) Alcohol (Ethanol) (03/07/17 15:50) Phenytoin (Dilantin) (03/07/17 15:50) Ct Brain W/O Iv Contrast(Rout) (03/07/17 ) Blood Glucose (03/07/17 15:50) Ecg Monitoring (03/07/17 15:50) Iv Access Insert/Monitor (03/07/17 15:50) Oximetry (03/07/17 15:50) Comprehensive Metabolic Panel (03/07/17 15:50) Sodium Chloride 0.9% Flush (Ns Flush) (03/07/17 16:00) Lorazepam Inj (Ativan Inj) (03/07/17 16:45) Labs Laboratory Tests Test 03/07/17 16:20 White Blood Count 8.4 TH/MM3 Red Blood Count 4.46 MIL/MM3 Hemoglobin 13.9 GM/DL Hematocrit 40.5 % Mean Corpuscular Volume 90.8 FL Mean Corpuscular Hemoglobin 31.1 PG Mean Corpuscular Hemoglobin 34.2 % Concent Red Cell Distribution Width 16.6 % Platelet Count 303 TH/MM3 Mean Platelet Volume 7.3 FL Neutrophils (%) (Auto) 81.2 % Lymphocytes (%) (Auto) 11.7 % Monocytes (%) (Auto) 6.6 % Eosinophils (%) (Auto) 0.3 % Basophils (%) (Auto) 0.2 % Neutrophils # (Auto) 6.8 TH/MM3 Lymphocytes # (Auto) 1.0 TH/MM3 Monocytes # (Auto) 0.6 TH/MM3 Eosinophils # (Auto) 0.0 TH/MM3 Basophils # (Auto) 0.0 TH/MM3 CBC Comment DIFF FINAL Differential Comment Sodium Level 126 MEQ/L Potassium Level 4.3 MEQ/L Chloride Level 92 MEQ/L Carbon Dioxide Level 25.9 MEQ/L Anion Gap 8 MEQ/L Blood Urea Nitrogen 6 MG/DL Creatinine 0.47 MG/DL Estimat Glomerular Filtration 136 ML/MIN Rate Random Glucose 88 MG/DL Calcium Level 9.3 MG/DL Total Bilirubin 0.3 MG/DL Aspartate Amino Transf 39 U/L (AST/SGOT) Alanine Aminotransferase 30 U/L (ALT/SGPT) Alkaline Phosphatase 203 U/L Total Protein 9.6 GM/DL Albumin 4.3 GM/DL Phenytoin (Dilantin) Level 30.5 MCG/ML Ethyl Alcohol Level LESS THAN 3 MG/DL MDM Medical Decision Making Medical Screen Exam Complete: Yes Emergency Medical Condition: Yes Medical Record Reviewed: Yes Differential Diagnosis ICH V SUBTHERAPEUTIC SEIZURES V ELECTROLYTE ABNL V UTI Diagnosis Primary Impression: AMS Additional Impressions: HYPONATREMIA DILANTIN TOXICITY Tom Templeton MD Mar 07, 2017 15:55
[2017-03-07] MEDS ORDERED: SODIUM CHLORIDE 0.9% FLUSH 10 ML FLUSH IVF PRN (16:00)
[2017-03-07] MEDS ORDERED: LORazepam 2 MG/ML VIAL IVS ONE (16:00)
[2017-03-07] MEDS ORDERED: LORA-392 PO (16:42)
[2017-03-07] MEDS ORDERED: CHOL1CAP34 PO (16:42)
[2017-03-07] MEDS ORDERED: ASPI1TAB91 PO (16:42)
[2017-03-07] MEDS ORDERED: PHENO60 PO (16:42)
[2017-03-07] MEDS ORDERED: LORazepam 2 MG/ML VIAL IM ONE (16:45)
[2017-03-07 16:53] LABS: AUTOMATED NEUTROPHIL # 6.8 TH/MM3 (1.8-7.7); BASOPHIL % 0.2 % (0.0-2.0); EOSINOPHIL % 0.3 % (0.0-4.0); HEMATOCRIT 40.5 % (35.0-46.0); HEMO FLAGS DIFF FINAL; LYMPH % 11.7 % (9.0-44.0); MEAN CELL VOLUME 90.8 FL (80.0-100.0); MEAN CORPUSCULAR HEMOGLOBIN 31.1 PG (27.0-34.0); MEAN CORPUSCULAR HGB CONC 34.2 % (32.0-36.0); MONO % 6.6 % (0.0-8.0); NEUT % 81.2 % (16.0-70.0); PLATELET COUNT 303 TH/MM3 (150-450); RED BLOOD COUNT 4.46 MIL/MM3 (4.00-5.30); RED CELL DISTRIBUTION WIDTH 16.6 % (11.6-17.2); WHITE BLOOD COUNT 8.4 TH/MM3 (4.0-11.0)
--- NOTE | 2017-03-07 17:23 | RADRPT ---
EXAM DATE/TIME: 03/07/2017 17:03 [facility] COMPARISON: CT BRAIN W/O CONTRAST, September 06, 2016, 16:11. INDICATIONS : Possible seizure today. RADIATION DOSE: 56.35 CTDIvol (mGy) MEDICAL HISTORY : Dementia. Seizures. Cardiovascular disease SURGICAL HISTORY : Appendectomy. ENCOUNTER: Initial ACUITY: 1 day PAIN SCALE: Non-responsive LOCATION: Bilateral head TECHNIQUE: Multiple contiguous axial images were obtained of the head. Using automated exposure control and adj ustment of the mA and/or kV according to patient size, radiation dose was kept as low as reasonably a chievable to obtain optimal diagnostic quality images. DICOM format image data is available electro nically for review and comparison. FINDINGS: CEREBRUM: The ventricles are normal for age. No evidence of midline shift, mass lesion, hemorrhage or acute in farction. No extra-axial fluid collections are seen. POSTERIOR FOSSA: The cerebellum and brainstem are intact. The 4th ventricle is midline. The cerebellopontine angle i s unremarkable. EXTRACRANIAL: The visualized portion of the orbits is intact. SKULL: The calvaria is intact. No evidence of skull fracture. CONCLUSION: No acute disease. Anival Jordan MD on March 07, 2017 at 17:20 Board Certified Radiologist. This report was verified electronically.
[2017-03-07 17:28] LABS: ALT (GPT) 30 U/L (10-53)
[2017-03-07 17:29] LABS: ANION GAP 8 MEQ/L (5-15); AST (GOT) 39 U/L (15-37); BICARBONATE 25.9 MEQ/L (21.0-32.0); BLOOD UREA NITROGEN 6 MG/DL (7-18); CHLORIDE 92 MEQ/L (98-107); GLOMERULAR FILTRATION RATE 136 ML/MIN (>89); SODIUM (NA) 126 MEQ/L (136-145)
[2017-03-07 17:30] LABS: ALKALINE PHOSPHATASE 203 U/L (45-117); TOTAL BILIRUBIN ADULT 0.3 MG/DL (0.2-1.0)
[2017-03-07 17:33] LABS: POTASSIUM 4.3 MEQ/L (3.5-5.1)
--- NOTE | 2017-03-07 18:42 | HHI.HP ---
[facility] Service [facility] Primary Care Physician Dominick Ledezma MD Admission Diagnosis AMS, DILANTIN TOXICITY, HYPONATREMIA Diagnoses: Chief Complaint: Altered mental status Travel History International Travel<30 Days: No Contact w/Intl Traveler <30 Da: No Traveled to Known Affected Are: No History of Present Illness 57-year-old female with dementia who resides at [facility] was admitted for possible seizures. Patient is on Dilantin for seizures. History taken from medical records. Patient has dementia and unable to give any further history. She seems to hear better on her left side. She keeps on repeating throughout the interview "Are we ready to go yet." She follows some commands such as I told her to roll over and she did. I also told her to take deep breaths which she also did. Sitter is at the bedside. Patient found to be in 4 point restraint due to agitation in which she was increasing harm to herself. Review of Systems Unable to obtain due to severe dementia. Questionable seizure activity. Positive for right-sided tremors. Past Family Social History Past Medical History History of CVA Seizure disorder History of status epilepticus History of hyponatremia History DVT of the brachial vein in the right upper extremity Hyperlipidemia Dementia Past Surgical History Appendectomy and tonsillectomy Reported Medications Reported Meds & Active Scripts Active Dilantin (Phenytoin Extended) 100 Mg Cap 100 Mg PO TID Reported Vitamin D3 (Cholecalciferol) 50,000 Unit Cap 50,000 Units PO WEEKLY Give on Mondays Phenobarbital 64.8 Mg Tab 64.8 Mg PO BID Ativan (Lorazepam) 0.5 Mg Tab 0.5 Mg PO Q6H PRN Aspirin Adult Low Strength (Aspirin) 81 Mg Tabdr 81 Mg PO DAILY Olanzapine 5 Mg Tab 5 Mg PO BID Nuedexta 20-10 mg (Dextromethorphan HBr-Quinidine) 1 Cap Cap 1 Cap PO BID Pantoprazole (Pantoprazole Sodium) 40 Mg Tab 40 Mg PO BID Simvastatin 5 Mg Tab 5 Mg PO HS Donepezil 10 Mg Tab 10 Mg PO HS Allergies: Coded Allergies: No Known Allergies (Verified , 09/06/16) Active Ordered Medications Current Medications Sodium Chloride (NS Flush) 2 ml UNSCH PRN IVF FLUSH AFTER USING IV ACCESS; Start 03/07/17 at 16:00 Lorazepam (Ativan Inj) 1 mg ONCE ONCE IVS ; Start 03/07/17 at 16:00; Stop 03/07 at 16:01; Status Cancel Lorazepam 2 mg 2 mg ONCE ONCE IM Last administered on 03/07/17t 16:46; Start 03/07/17 at 16:45; Stop 03/07/17 at 16:46; Status DC Sodium Chloride (NS 1000 ml Inj) 1,000 ml @ 100 mls/hr Q10H IV ; Start at 18:36; Status UNV Sodium Chloride (NS Flush) 2 ml UNSCH PRN IV FLUSH FLUSH AFTER USING IV ACCESS ; Start 03/07/17 at 18:45; Status UNV Sodium Chloride (NS Flush) 2 ml BID IV FLUSH ; Start 03/07/17 at 21:00; Status UNV Acetaminophen (Tylenol) 650 mg Q4H PRN PO TEMP > 100.4; Start 03/07/17 at 18:45 ; Status UNV Naloxone HCl (Narcan Inj) 0.4 mg UNSCH PRN IV SEE LABEL COMMENTS; Start at 18:45; Status UNV Senna/Docusate Sodium (Catarina-Colace) 1 tab BID PO ; Start 03/07/17 at 21:00; Status UNV Magnesium Hydroxide (Milk Of Magnesia Liq) 30 ml Q12H PRN PO MILD - MODERATE CONSTIPATION; Start 03/07/17 at 18:45; Status UNV Sennosides (Senokot) 17.2 mg Q12H PRN PO MODERATE - SEVERE CONSTIPATION; Start 03/07/17 at 18:45; Status UNV Bisacodyl (Dulcolax Supp) 10 mg DAILY PRN RECTAL SEVERE CONSITIPATION; Start at 18:45; Status UNV Lactulose (Lactulose Liq) 30 ml DAILY PRN PO SEVERE CONSITIPATION; Start at 18:45; Status UNV Family History Noncontributory Social History Patient has a history tobacco use. Unable to assess the patient drinks alcohol but unlikely now since patient is residing in a assisted. Physical Exam Vital Signs Vital Signs Date Time Temp Pulse Resp B/P Pulse Ox O2 Delivery O2 Flow Rate FiO2 03/07/17 16:33 97.7 102 18 171/101 100 03/07/17 15:56 88 Room Air 03/07/17 15:50 102 14 139/61 Physical Exam GENERAL: This is a thin frail female in no acute distress. SKIN: No rashes, ecchymoses or lesions. Cool and dry. HEAD: Atraumatic. Normocephalic. No temporal or scalp tenderness. EYES: Pupils equal round and reactive. No scleral icterus. No injection or drainage. ENT: Nose without bleeding, purulent drainage or septal hematoma. Throat without erythema, tonsillar hypertrophy or exudate. Uvula midline. Airway patent. NECK: Trachea midline. No JVD or lymphadenopathy. Supple, nontender, no meningeal signs. CARDIOVASCULAR: Regular rate and rhythm without murmurs, gallops, or rubs. RESPIRATORY: Clear to auscultation. Breath sounds equal bilaterally. No wheezes , rales, or rhonchi. Barrelled chest. GASTROINTESTINAL: Abdomen soft, non-tender, nondistended. No hepato-splenomegaly , or palpable masses. No guarding. MUSCULOSKELETAL: Extremities without clubbing, cyanosis, or edema. No joint tenderness, effusion, or edema noted. No calf tenderness. Negative Homans sign bilaterally. NEUROLOGICAL: It was difficult to do a neurological exam since patient will not follow all commands. She is AAO 0. Strength is grossly intact. Right sided resting tremor. Laboratory Laboratory Tests Test 03/07/17 16:20 White Blood Count 8.4 Red Blood Count 4.46 Hemoglobin 13.9 Hematocrit 40.5 Mean Corpuscular Volume 90.8 Mean Corpuscular Hemoglobin 31.1 Mean Corpuscular Hemoglobin 34.2 Concent Red Cell Distribution Width 16.6 Platelet Count 303 Mean Platelet Volume 7.3 Neutrophils (%) (Auto) 81.2 Lymphocytes (%) (Auto) 11.7 Monocytes (%) (Auto) 6.6 Eosinophils (%) (Auto) 0.3 Basophils (%) (Auto) 0.2 Neutrophils # (Auto) 6.8 Lymphocytes # (Auto) 1.0 Monocytes # (Auto) 0.6 Eosinophils # (Auto) 0.0 Basophils # (Auto) 0.0 CBC Comment DIFF FINAL Differential Comment Sodium Level 126 Potassium Level 4.3 Chloride Level 92 Carbon Dioxide Level 25.9 Anion Gap 8 Blood Urea Nitrogen 6 Creatinine 0.47 Estimat Glomerular Filtration 136 Rate Random Glucose 88 Calcium Level 9.3 Total Bilirubin 0.3 Aspartate Amino Transf 39 (AST/SGOT) Alanine Aminotransferase 30 (ALT/SGPT) Alkaline Phosphatase 203 Total Protein 9.6 Albumin 4.3 Phenytoin (Dilantin) Level 30.5 Ethyl Alcohol Level LESS THAN 3 Result Diagram: 03/07/17 1620 03/07/17 1620 Imaging Last Impressions Head CT 03/07/17 0000 Signed Impressions: Service Date/Time: Tuesday, March 07, 2017 17:03 - CONCLUSION: No acute disease. Anival Jordan MD Assessment and Plan Assessment and Plan Metabolic encephalopathy -CT scan showed no acute disease. -Labs obtained and showed an elevated phenytoin level of 30.5. -Most likely symptoms are due to phenytoin toxicity. -See treatment as below. Phenytoin toxicity -Unsure of patient baseline since she does have dementia but I was told right- sided tremor is new. -Will continue to monitor phenytoin levels every 4 hours and neuro checks every 2 hours. -Monitor on cardiac telemetry. Strict ins and outs. -Consult neurologist Dr. Ramirez who last saw patient. -Hold all anti-epileptic medication. Dementia -Will continue restraints since patient is agitated and a harm to herself. -Restart home medication. Hyponatremia -Patient does have a history of hyponatremia. Last admission her sodium was 132 at discharge. -May be secondary to phenytoin toxicity and dehydration. -Will give IV fluids and continue to monitor and trend sodium levels. -Neuro exams GERD -Continue her Protonix. History of CVA/hyperlipidemia -Continue with home medication. DVT prophylaxis -SCD/teds Code Status Will need to obtain from assisted. Physician Certification 2 Midnight Certification Type: Admission for Inpatient Services Order for Inpatient Services The services are ordered in accordance with Medicare regulations or non- Medicare payer requirements, as applicable. In the case of services not specified as inpatient-only, they are appropriately provided as inpatient services in accordance with the 2-midnight benchmark. Estimated LOS (days): 2 2 days is the estimated time the patient will need to remain in the hospital, assuming treatment plan goals are met and no additional complications. Post-Hospital Plan: Other (specify) (assisted) Van,Marilou Cinthia MD Mar 07, 2017 18:42
[2017-03-07] MEDS ORDERED: SENNOSIDES 8.6 MG TAB PO PRN (18:45)
[2017-03-07] MEDS ORDERED: NALOXONE HCL 0.4 MG/ML AMP IV PRN (18:45)
[2017-03-07] MEDS ORDERED: ACETAMINOPHEN 325 MG TAB PO PRN (18:45)
[2017-03-07] MEDS ORDERED: BISACODYL 10 MG SUPP RECTAL PRN (18:45)
[2017-03-07] MEDS ORDERED: MAGNESIUM HYDROXIDE SUSP 30 ML CUP PO PRN (18:45)
[2017-03-07] MEDS ORDERED: SODIUM CHLORIDE 0.9% FLUSH 10 ML FLUSH IV FLUSH PRN (18:45)
[2017-03-07] MEDS ORDERED: LACTULOSE SYRUP 20 GM/30 ML CUP PO PRN (18:45)
[2017-03-07] MEDS ORDERED: LORazepam 0.5 MG TAB PO PRN (19:00)
[2017-03-07] MEDS ORDERED: LORazepam 2 MG/ML VIAL IV PUSH PRN (19:15)
[2017-03-07] MEDS: SODIUM CHLOR 0.9% 1000 ML INJ 1,000 ML IV SCH (19:31)
[2017-03-07] MEDS ORDERED: CHOLECALCIFEROL (VIT D3) 5000 UNIT CAP PO SCH (20:00)
[2017-03-07] MEDS ORDERED: CHLORHEXIDINE GLUCONATE 2 % 1 PACK (2 CLOTHS)(extra cloths) TOPICAL PRN (20:30)
[2017-03-07] MEDS ORDERED: PANTOPRAZOLE SOD 40 MG DELAYED RELEASE TAB PO SCH (21:00)
[2017-03-07] MEDS: SODIUM CHLORIDE 0.9% FLUSH 10 ML FLUSH IV FLUSH SCH (21:00)
[2017-03-07] MEDS ORDERED: NUEDEXTA PO SCH (21:00)
[2017-03-07] MEDS: DOCUSATE SODIUM 50 MG/SENNA 8.6 MG TAB PO SCH (22:32)
[2017-03-07] MEDS: MUPIROCIN 2% OINT 1 APPLIC/GM SYR NASAL SCH (22:32)
[2017-03-07] MEDS: PRAVASTATIN SOD 10 MG TAB PO SCH (22:33)
[2017-03-07] MEDS: OLANZapine 5 MG TAB PO SCH (22:33)
[2017-03-07] MEDS: LANSOPRAZOLE SOLUTAB 30 MG TAB PO SCH (23:00)
[2017-03-08] VITALS (12 sets, daily range): BP systolic 103–129; BP diastolic 57–73; PULSE 61–95; RESP 14–21; TEMP 98.6–100.7; O2SAT 98–100
[2017-03-08] MEDS: SODIUM CHLOR 0.9% 1000 ML INJ 1,000 ML IV SCH ×2 (03:59→13:49)
[2017-03-08] MEDS: CHLORHEXIDINE GLUCONATE 2 % 1 PACK (2 CLOTHS)(taper/protocol) TOPICAL SCH (03:59)
[2017-03-08 04:05] LABS: HEMATOCRIT 33.8 % (35.0-46.0); MEAN CELL VOLUME 89.5 FL (80.0-100.0); MEAN CORPUSCULAR HEMOGLOBIN 30.5 PG (27.0-34.0); PLATELET COUNT 277 TH/MM3 (150-450); RED BLOOD COUNT 3.78 MIL/MM3 (4.00-5.30); RED CELL DISTRIBUTION WIDTH 16.2 % (11.6-17.2); REVIEW FLAG FINAL; WHITE BLOOD COUNT 7.8 TH/MM3 (4.0-11.0)
[2017-03-08 04:45] LABS: POTASSIUM 3.7 MEQ/L (3.5-5.1)
[2017-03-08] MEDS: MUPIROCIN 2% OINT 1 APPLIC/GM SYR NASAL SCH ×2 (09:42→20:11)
[2017-03-08] MEDS: SODIUM CHLORIDE 0.9% FLUSH 10 ML FLUSH IV FLUSH SCH ×2 (09:43→21:00)
[2017-03-08] MEDS: ASPIRIN EC 81 MG TABEC PO SCH (09:45)
[2017-03-08] MEDS: DOCUSATE SODIUM 50 MG/SENNA 8.6 MG TAB PO SCH ×2 (09:45→20:12)
[2017-03-08] MEDS: OLANZapine 5 MG TAB PO SCH ×2 (09:45→20:12)
[2017-03-08] MEDS: LANSOPRAZOLE SOLUTAB 30 MG TAB PO SCH ×2 (09:45→20:12)
--- NOTE | 2017-03-08 09:49 | MB ---
cc: CHERISE BRISENO MD DATE OF CONSULTATION: 03/08/2017 REASON FOR CONSULTATION 'Dementia, seizures, altered mental status, possible Dilantin toxicity'. HISTORY OF PRESENT ILLNESS A 57-year-old female with history of dementia, comes from [facility], was admitted for possible seizures.The patient is at baseline demented. Hence, the history is obtained from the medical records. The patient is on Dilantin for seizures. She repeats throughout the clinical encounter, "nothing is negative". She follows commands, "open, close your eyes ", moved extremities and sticks out her tongue. As per the ED note the possible convulsions were believed to be related to ethanol use. REVIEW OF SYSTEMS Unable to obtain due to severe dementia, questionable seizure activity. PAST MEDICAL HISTORY History obtained from medical records: 1. History of stroke. 2. Seizure disorder. 3. Status epilepticus. 4. Hyponatremia. 5. DVT of brachial vein right upper extremity. 6. Hyperlipidemia. 7. Dementia. PAST SURGICAL HISTORY Obtained from medical records: Appendectomy and tonsillectomy. MEDICATIONS 1. Dilantin 100 mg three times daily. 2. Vitamin D3. 3. Phenobarb 64.8 mg twice daily. 4. Ativan. 5. Aspirin 81. 6. Olanzapine. 7. Nuedexta. 8. Pantoprazole. 9. Simvastatin. 10. Donepezil 10 mg. ALLERGIES No known allergies. FAMILY HISTORY Noncontributory. SOCIAL HISTORY Obtained from medical records, has history of tobacco use. Unable to assess whether the patient drinks alcohol but that is unlikely at this time since the patient resides in a [facility]. PHYSICAL EXAMINATION GENERAL: Frail with a hoarse voice, not in acute distress, awake and alert. HEENT: Atraumatic, normocephalic. Intact vision and intact hearing. NECK: No JVD. Trachea in the midline. No signs of meningeal irritation. CARDIOVASCULAR: Regular rate and rhythm. RESPIRATORY: Clear to auscultation. No wheezes. GASTROINTESTINAL: Soft abdomen. No tenderness. MUSCULOSKELETAL: No cyanosis, clubbing or edema. Moves all extremities. NEUROLOGICAL: Awake, alert, oriented x 0. She follows verbal commands, "open your eyes, stick out your tongue, move your arm and leg". She tends to repeat "nothing is negative". No nystagmus. No visual field defect. Pupils 3 mm bilaterally equally reacting to light. No facial asymmetry. Hoarse voice, no slurring. Normal tone. No fasciculation. Normal elevation of the uvula. Upper and lower extremities are grossly 5/5, unable to accurately assess because of lack of cooperation of the patient and difficulty understanding due to dementia. Right upper extremity tremor, mild rigidity. Reflexes 1+ bilateral symmetrical. Plantars are bilateral downgoing. LABORATORY DATA White blood cells 7.8, hemoglobin 11.5, HCT 33.8, MCV 89.5. Sodium 131 initially was 126, chloride 95, calcium 8.4, AST 39, ALT 30, alkaline phosphatase 203, total protein 9.6. Dilantin level initially was 30.5, on 03/07/2017 later on that day it was down to 26.4, early this morning 03/08/2017 it was 22. IMAGING STUDIES Head CT scan showed no acute intracranial disease. DIAGNOSTIC IMPRESSION 1. Encephalopathy. 2. Likely metabolic. 3. Dilantin toxicity. 4. Hyponatremia. 5. Dementia. 6. Hyponatremia. PLAN 1. Hold phenytoin. 2. Check phenytoin q. 12 hourly. 3. Telemetry. 4. Swallow test evaluation. 5. Neuro checks q. one hourly. 6. Continue phenobarb at 64.8 twice daily. 7. Monitor sodium levels and replenish slowly. 8. Continue statin. 9. GI prophylaxis. 10. DVT prophylaxis. 11. The patient has had several admissions for status epilepticus. EEG done on 09/08/2016 was reported as normal. 12. Seizure precautions. Thank you for the opportunity to participate in the care of your patient. MD LONDON Hager/LUPE /8:47 AM /9:09 AM SONIA
--- NOTE | 2017-03-08 15:07 | HHI.PR ---
Subjective Remarks Follow-up for altered mental status Patient is hard of hearing. Patient hears better in her right ear. Patient is asking for to take her home. She knows her first and last name. Patient could not tell me location but she stated that she knows that she is in the hospital. When asked what year she stated that she does not know the year. Patient does follow commands and answer questions. She denies any pain. Objective Vitals Vital Signs Date Time Temp Pulse Resp B/P Pulse Ox O2 Delivery O2 Flow Rate FiO2 03/08/17 12:00 98.8 61 15 112/64 99 03/08/17 12:00 61 03/08/17 10:00 64 03/08/17 08:00 66 03/08/17 08:00 99.0 66 16 106/68 100 03/08/17 06:00 68 03/08/17 04:00 69 03/08/17 04:00 98.6 69 17 103/59 98 03/08/17 02:00 76 03/08/17 00:00 100.7 85 21 127/73 99 03/08/17 00:00 85 03/07/17 22:00 81 03/07/17 20:00 89 03/07/17 20:00 100.3 89 20 155/73 100 03/07/17 19:51 100.3 91 20 152/73 100 03/07/17 19:31 100 18 128/69 99 03/07/17 18:30 97 20 159/87 100 Nasal Cannula 2 03/07/17 17:30 97 18 171/101 100 Nasal Cannula 2 03/07/17 16:33 97.7 102 18 171/101 100 03/07/17 15:56 88 Room Air 03/07/17 15:50 102 14 139/61 I/O 03/07/17 03/07/17 03/07/17 03/08/17 03/08/17 03/08/17 07:00 15:00 23:00 07:00 15:00 23:00 Intake Total 348 ml 635 ml 884 ml Output Total 850 ml 575 ml 1450 ml Balance -502 ml 60 ml -566 ml Intake Oral 0 ml IV Total 348 ml 635 ml 884 ml Output Urine Total 850 ml 575 ml 1450 ml # Bowel Movements 0 0 0 Result Diagram: 03/08/17 0342 03/08/17 0342 Objective Remarks GENERAL:in NAD CARDIOVASCULAR: Regular rate and rhythm without murmurs, gallops, or rubs. RESPIRATORY: Breath sounds equal bilaterally. No accessory muscle use. GASTROINTESTINAL: Abdomen soft, non-tender, nondistended. MUSCULOSKELETAL: No cyanosis, or edema. BACK: Nontender without obvious deformity. No CVA tenderness. NEURO: AAO 1. Patient knows her name. she is a poor historian because of her dementia. No more tremors noted. Motor and sensation is grossly intact. Medications and IVs Current Medications Sodium Chloride (NS Flush) 2 ml UNSCH PRN IVF FLUSH AFTER USING IV ACCESS; Start 03/07/17 at 16:00 Lorazepam (Ativan Inj) 1 mg ONCE ONCE IVS ; Start 03/07/17 at 16:00; Stop 03/07 at 16:01; Status Cancel Lorazepam 2 mg 2 mg ONCE ONCE IM Last administered on 03/07/17 16:46; Start 03/07/17 at 16:45; Stop 03/07/17 at 16:46; Status DC Sodium Chloride (NS 1000 ml Inj) 1,000 ml @ 100 mls/hr Q10H IV Last administered on 03/08/17 13:49; Start 03/07/17 at 18:36 Sodium Chloride (NS Flush) 2 ml UNSCH PRN IV FLUSH FLUSH AFTER USING IV ACCESS ; Start 03/07/17 at 18:45 Sodium Chloride (NS Flush) 2 ml BID IV FLUSH Last administered on 03/08/17 09: 43; Start 03/07/17 at 21:00 Acetaminophen (Tylenol) 650 mg Q4H PRN PO TEMP > 100.4 Last administered on 01:05; Start 03/07/17 at 18:45 Naloxone HCl (Narcan Inj) 0.4 mg UNSCH PRN IV SEE LABEL COMMENTS; Start at 18:45 Senna/Docusate Sodium (Catarina-Colace) 1 tab BID PO Last administered on 09:45; Start 03/07/17 at 21:00 Magnesium Hydroxide (Milk Of Magnesia Liq) 30 ml Q12H PRN PO MILD - MODERATE CONSTIPATION; Start 03/07/17 at 18:45 Sennosides (Senokot) 17.2 mg Q12H PRN PO MODERATE - SEVERE CONSTIPATION; Start 03/07/17 at 18:45 Bisacodyl (Dulcolax Supp) 10 mg DAILY PRN RECTAL SEVERE CONSITIPATION; Start at 18:45 Lactulose (Lactulose Liq) 30 ml DAILY PRN PO SEVERE CONSITIPATION; Start at 18:45 Aspirin (Ecotrin Ec) 81 mg DAILY PO Last administered on 03/08/17 09:45; Start 03/08/17 at 09:00 Lorazepam (Ativan) 0.5 mg Q6H PRN PO ANXIETY; Start 03/07/17 at 19:00 Olanzapine (ZyPREXA) 5 mg BID PO Last administered on 03/08/17 09:45; Start at 21:00 Pantoprazole Sodium (Protonix) 40 mg BID PO ; Start 03/07/17 at 21:00; Stop at 22:54; Status DC Cholecalciferol (Vitamin D3) 50,000 units Q7D PO ; Start 03/07/17 at 20:00; Stop 03/08/17 at 14:20; Status DC Patient Own Medication PT OWN MED: NUEDE... BID PO ; Start 03/07/17 at 21:00; Status Hold Pravastatin Sodium (Pravachol) 10 mg HS PO Last administered on 03/07/17 22:33 ; Start 03/07/17 at 21:00 Lorazepam (Ativan Inj) 1 mg Q2H PRN IV PUSH AGITATION; Start 03/07/17 at 19:15 Miscellaneous Information Patient in critical care unit? Ass... [id number] .XX ; Start 03/07/17 at 20:30 Mupirocin (Bactroban Nasal 2% Oint) 1 applic BID NASAL Last administered on 09:42; Start 03/07/17 at 21:00 Chlorhexidine Gluconate (Chlorhexidine 2% Cloth) 3 pack DAILY@04 TOPICAL Last administered on 03/08/17 03:59; Start 03/08/17 at 04:00; Stop 03/12/17 at 04:01 Chlorhexidine Gluconate (Chlorhexidine 2% Cloth) 3 pack UNSCH PRN TOPICAL HYGIENIC CARE; Start 03/07/17 at 20:30; Stop 03/12/17 at 20:16 Lansoprazole (Prevacid Odt) 30 mg BID PO Last administered on 03/08/17t 09:45; Start 03/07/17 at 23:00 A/P Assessment and Plan Metabolic encephalopathy -CT scan showed no acute disease. -Labs obtained and showed an elevated phenytoin level of 30.5. -Most likely symptoms are due to phenytoin toxicity. -See treatment as below. -Patient is following commands so will discontinue her restraints. I dealth with her nurse in regards to this. Phenytoin toxicity -Symptoms are improving. Phenytoin level are trending down. He no longer has tremors and she's much more alert. -Neurologist consulted and following. -Continue to follow phenytoin level twice a day per neurologist. -Monitor on cardiac telemetry. Strict ins and outs. Seizure disorder -Phenobarbital restarted. -Continue management per neurologist. Dementia -Continue with home medication. Hyponatremia -Patient does have a history of hyponatremia. Last admission her sodium was 132 at discharge. -Improving. Patient seems to be back at her baseline. GERD -Continue her Protonix. History of CVA/hyperlipidemia -Continue with home medication. DVT prophylaxis -SCD/teds Continue phenobarb at 64.8 twice daily. Discharge Planning If patient continues to well possible discharge back to the [facility] tomorrow. She will need to be off restraints for at least 24 hours. d/w patient 's nurse in regards to removing restraints. Marilou Boyle MD Mar 08, 2017 15:07
[2017-03-08] MEDS: PRAVASTATIN SOD 10 MG TAB PO SCH (20:12)
[2017-03-09] VITALS (18 sets, daily range): BP systolic 114–150; BP diastolic 57–72; PULSE 61–83; RESP 13–19; TEMP 98.3–98.8; O2SAT 98–100
[2017-03-09] MEDS: SODIUM CHLOR 0.9% 1000 ML INJ 1,000 ML IV SCH ×2 (00:36→12:00)
[2017-03-09] MEDS: CHLORHEXIDINE GLUCONATE 2 % 1 PACK (2 CLOTHS)(taper/protocol) TOPICAL SCH (04:00)
[2017-03-09] MEDS: SODIUM CHLORIDE 0.9% FLUSH 10 ML FLUSH IV FLUSH SCH (09:00)
[2017-03-09] MEDS: MUPIROCIN 2% OINT 1 APPLIC/GM SYR NASAL SCH (09:00)
[2017-03-09] MEDS: DOCUSATE SODIUM 50 MG/SENNA 8.6 MG TAB PO SCH (09:38)
[2017-03-09] MEDS: ASPIRIN EC 81 MG TABEC PO SCH (09:39)
[2017-03-09] MEDS: OLANZapine 5 MG TAB PO SCH (09:39)
[2017-03-09] MEDS: LANSOPRAZOLE SOLUTAB 30 MG TAB PO SCH (09:39)
[2017-03-09] MEDS: PRAVASTATIN SOD 10 MG TAB PO SCH (09:41)
[2017-03-09 09:42] LABS: MEAN CELL VOLUME 92.2 FL (80.0-100.0); MEAN CORPUSCULAR HEMOGLOBIN 30.5 PG (27.0-34.0); MEAN CORPUSCULAR HGB CONC 33.1 % (32.0-36.0); PLATELET COUNT 274 TH/MM3 (150-450); RED BLOOD COUNT 3.91 MIL/MM3 (4.00-5.30); RED CELL DISTRIBUTION WIDTH 16.1 % (11.6-17.2); REVIEW FLAG FINAL; WHITE BLOOD COUNT 5.8 TH/MM3 (4.0-11.0)
[2017-03-09 10:47] LABS: BICARBONATE 21.5 MEQ/L (21.0-32.0)
--- NOTE | 2017-03-09 12:54 | HHI.DS ---
Discharge Summary Admission Date Mar 07, 2017 at 18:28 Discharge Date: Mar 09, 2017 Admitting Diagnosis AMS, DILANTIN TOXICITY, HYPONATREMIA (1) Dilantin toxicity ICD Code: T42.0X1A Diagnosis: Principal (2) Hyponatremia ICD Code: E87.1 Diagnosis: Principal Procedures none Brief History - From Admission 57-year-old female with dementia who resides at [facility] was admitted for possible seizures. Patient is on Dilantin for seizures. History taken from medical records. Patient has dementia and unable to give any further history. She seems to hear better on her left side. She keeps on repeating throughout the interview "Are we ready to go yet." She follows some commands such as I told her to roll over and she did. I also told her to take deep breaths which she also did. Sitter is at the bedside. Patient found to be in 4 point restraint due to agitation in which she was increasing harm to herself. CBC/BMP: 03/09/17 0904 03/09/17 0904 Significant Findings Laboratory Tests Test 03/07/17 03/07/17 03/08/17 03/09/17 16:20 23:23 03:42 09:04 Neutrophils (%) (Auto) 81.2 % (16.0-70.0) Sodium Level 126 MEQ/L 131 MEQ/L (136-145) (136-145) Chloride Level 92 MEQ/L 95 MEQ/L (98-107) (98-107) Blood Urea Nitrogen 6 MG/DL (7-18) 4 MG/DL (7-18) Creatinine 0.47 MG/DL 0.32 MG/DL 0.34 MG/DL (0.50-1.00) (0.50-1.00) (0.50-1.00) Aspartate Amino Transf 39 U/L (15-37) (AST/SGOT) Alkaline Phosphatase 203 U/L (45-117) Total Protein 9.6 GM/DL (6.4-8.2) Phenytoin (Dilantin) Level 30.5 MCG/ML 26.4 MCG/ML 22.0 MCG/ML (10.0-20.0) (10.0-20.0) (10.0-20.0) Red Blood Count 3.78 MIL/MM3 3.91 MIL/MM3 (4.00-5.30) (4.00-5.30) Hemoglobin 11.5 GM/DL (11.6-15.3) Hematocrit 33.8 % (35.0-46.0) Calcium Level 8.4 MG/DL (8.5-10.1) Random Glucose 56 MG/DL (74-106) Imaging Last Impressions Head CT 03/07/17 0000 Signed Impressions: Service Date/Time: Tuesday, March 07, 2017 17:03 - CONCLUSION: No acute disease. Anival Jordan MD PE at Discharge GENERAL:in NAD CARDIOVASCULAR: Regular rate and rhythm without murmurs, gallops, or rubs. RESPIRATORY: Breath sounds equal bilaterally. No accessory muscle use. GASTROINTESTINAL: Abdomen soft, non-tender, nondistended. MUSCULOSKELETAL: No cyanosis, or edema. BACK: Nontender without obvious deformity. No CVA tenderness. NEURO: AAO 2. Patient knows her name and location. She could not come in the date. Patient follows commands and answer questions appropriately. Pt update on day of discharge Follow-up for Dilantin toxicity and hyponatremia Patient stated that she wants to go home. She was able to give me her first and last name and location. She was not able to tell me the date. Patient has no complaints. She denies any pain. She stated that she understand that she was confused before but she is no longer confused. Dealt with patient's nurse who had no complaints. Hospital Course 57-year-old female with history of dementia and seizure disorder who presented with altered mental status and right-sided tremors Metabolic encephalopathy -CT scan showed no acute disease. -Labs obtained and showed an elevated phenytoin level of 30.5. -Most likely symptoms are due to phenytoin toxicity. -See treatment as below. Phenytoin toxicity -Phenytoin was held. During her hospitalization her tremors resolved and her mental status improved where she is back to her baseline. -Phenobarbital was resumed. The day of discharge her phenytoin level was 15.7. d/w Dr. Ramirez over the phone and he stated on the day of discharge patient can be discharged but he wants her to resume Dilantin and have a repeat level in 2 weeks. He also stated that his office will call the patient to make a follow up appointment with him. Seizure disorder -During her hospital physician phenobarbital was resumed. Once Dilantin level normalized per neurologist resume Dilantin. See treatment as above. Dementia -Continue with home medication. Hyponatremia -Patient does have a history of hyponatremia. Last admission her sodium was 132 at discharge. -Hyponatremia improved with IV fluids. She was back to her baseline a day of discharge. GERD -Continue her Protonix. History of CVA/hyperlipidemia -Continue with home medication. Pt Condition on Discharge: Good Discharge Disposition: Discharge to SNF Discharge Time: <= 30 minutes Discharge Instructions DIET: Follow Instructions for: As Tolerated, No Restrictions Activities you can perform: Regular-No Restrictions Follow up Referrals: Neurology - 2 Weeks with Luis Armando Ramirez MD [facility]/ - Next Day New Orders: PHENYTOIN (DILANTIN) - 2 Weeks Continued Medications: Aspirin DR (Aspirin Adult Low Strength) 81 Mg Tabdr 81 MG PO DAILY TAB Cholecalciferol (Vitamin D3) 50,000 Unit Cap 05402 UNITS PO WEEKLY Give on Mondays Nutritional Supplement #1 Ref 0 BOTTLE Dextromethorphan HBr-Quinidine (Nuedexta 20-10 mg) 1 Cap Cap 1 CAP PO BID Pseudobulbar Affect #60 Ref 0 CAP Donepezil (Donepezil) 10 Mg Tab 10 MG PO HS Dementia TAB Lorazepam (Ativan) 0.5 Mg Tab 0.5 MG PO Q6H PRN ANXIETY Ref 0 TAB Olanzapine (Olanzapine) 5 Mg Tab 5 MG PO BID #60 Ref 0 TAB Pantoprazole (Pantoprazole) 40 Mg Tab 40 MG PO BID Inflammation TAB Phenobarbital (Phenobarbital) 64.8 Mg Tab 64.8 MG PO BID Control Seizures #60 Ref 0 TAB Phenytoin Extended (Dilantin) 100 Mg Cap 100 MG PO TID Control Seizures #90 Ref 0 CAP Simvastatin (Simvastatin) 5 Mg Tab 5 MG PO HS Cholesterol Management TAB Marilou Boyle MD Mar 09, 2017 12:54
== END 2017-03-09 19:35 | DRG 71 ==
LOC: NEPC 15:39 → NEDA 18:28 → HIMN 19:45
PROVIDERS: ADMIT Family Medicine; ATTEND Family Medicine
DX: G93.41 Metabolic encephalopathy (principal); E87.1 Hypo-osmolality and hyponatremia; F03.90 Unspecified dementia, unspecified severity, without behavioral disturbance, psychotic disturbance, mood disturbance, and anxiety; Z78.1 Physical restraint status; T42.0X5A Adverse effect of hydantoin derivatives, initial encounter; Y92.129 Unspecified place in nursing home as the place of occurrence of the external cause; K21.9 Gastro-esophageal reflux disease without esophagitis; Z86.73 Personal history of transient ischemic attack (TIA), and cerebral infarction without residual deficits; E78.5 Hyperlipidemia, unspecified; G40.909 Epilepsy, unspecified, not intractable, without status epilepticus; Z86.718 Personal history of other venous thrombosis and embolism; Z87.891 Personal history of nicotine dependence; H91.90 Unspecified hearing loss, unspecified ear
CPT/HCPCS: 70450; 80048; 80053; 80185; 80307; 82948; 85025; 85027; 87641; 96372; J2060; J7030